=== PATIENT | male | born 1975 | race Caucasian/White ===

== ENCOUNTER 2018-12-21 10:07 | Inpatient (IN) | payer BC ==
[2018-12-21] MEDS ORDERED: LISINOPRIL 10 MG TABLET PO ONE (10:21)
[2018-12-21] MEDS ORDERED: CLONIDINE HCL 0.1 MG TABLET PO ONE (10:21)
--- NOTE | 2018-12-21 10:24 | ER Document Report ---
ED Medical Screen (RME) - General Chief Complaint: Blood Pressure Problem Stated Complaint: BLOOD PRESSURE ISSUES Time Seen by Provider: 12/21/18 10:20 Primary Care Provider: FEDERICO HERNANDEZ MD [Primary Care Provider] - Follow up as needed TRAVEL OUTSIDE OF THE [place] IN LAST 30 DAYS: No - HPI Notes: 12/21/18 10:22 Patient is a 43-year-old male who presents emergency department per the direction of urgent care for elevated blood pressure. Patient states that he otherwise feels well and has been eating and having normal bowel movements. No significant cardiopulmonary medical history. He has not been taking his blood pressure medicines. Patient states that he does feel little anxious today. Denies any headache, fever, neck pain, changes in vision/speech/mentation /hearing, URI, sore throat, chest pain, palpitations, syncope, cough, shortness of breath, wheeze, dyspnea, abdominal pain, nausea/vomiting/diarrhea, urinary retention, dysuria, hematuria, loss of control of bowel or bladder, numbness/tingling, saddle anesthesia, muscle paralysis/weakness, or rash. Reviewed with Dr. Persaud who would like baseline labs performed. Pt tachycardic and tachypneic with high BP. I have treated and performed a rapid initial assessment of this patient. A comprehensive ED assessment and evaluation of the patient, analysis of test results and completion of medical decision making process will be conducted by additional ED providers. PHYSICAL EXAMINATION: GENERAL: Well-appearing, well-nourished and in no acute distress. A&Ox4. Answers questions appropriately. LUNGS: Breath sounds clear to auscultation bilaterally and equal. No wheezes rales or rhonchi. HEART: Regular rate and rhythm without murmurs, rubs, gallops. Extremities: No cyanosis, clubbing, or edema b/l. NEUROLOGICAL: Normal speech, normal gait. PSYCH: Normal mood, normal affect. 12/21/18 10:23 - Related Data Allergies/Adverse Reactions: acetaminophen [From Percocet] Allergy (Mild, Verified 12/21/18 10:08) Urticaria oxycodone HCl [From Percocet] Allergy (Mild, Verified 12/21/18 10:08) Urticaria Past Medical History - Past Medical History Cardiac Medical History: Reports: Hx Hypertension Renal/ Medical History: Denies: Hx Peritoneal Dialysis Physical Exam - Vital signs Vitals: Temp Pulse Resp BP Pulse Ox 98.0 F 132 H 26 H 266/152 H 96 12/21/18 10:10 12/21/18 10:10 12/21/18 10:10 12/21/18 10:10 12/21/18 10:10 Course - Vital Signs Vital signs: Temp Pulse Resp BP Pulse Ox 98.0 F 132 H 26 H 266/152 H 96 12/21/18 10:10 12/21/18 10:10 12/21/18 10:10 12/21/18 10:10 12/21/18 10:10 Doctor's Discharge - Discharge Referrals: FEDERICO HERNANDEZ MD [Primary Care Provider] - Follow up as needed
[2018-12-21 10:47] LABS: ABSOLUTE BASOPHILS # (AUTO) 0.1 10^3/uL (0.0-0.2); ABSOLUTE EOSINOPHILS # (AUTO) 0.1 10^3/uL (0.0-0.6); ABSOLUTE LYMPHOCYTES (AUTO) 1.1 10^3/uL (0.5-4.7); ABSOLUTE MONOCYTES (AUTO) 0.4 10^3/uL (0.1-1.4); BASOPHILS % (AUTO) 1.5 % (0-2); HEMATOCRIT 47.6 % (37.9-51.0); HEMOGLOBIN 16.5 g/dL (13.5-17.0); LYMPHOCYTES % (AUTO) 19.9 % (13-45); MEAN CORPUSCULAR HEMOGLOBIN 36.1 pg (27.0-33.4); MEAN CORPUSCULAR HGB CONC 34.7 g/dL (32.0-36.0); MEAN CORPUSCULAR VOLUME 104 fl (80-97); MONOCYTES % (AUTO) 6.9 % (3-13); PLATELET COUNT 175 10^3/uL (150-450); RED BLOOD COUNT 4.56 10^6/uL (4.35-5.55); RED CELL DISTRIBUTION WIDTH 14.2 % (11.5-14.0); SEGMENTED NEUTROPHILS % (AUTO) 70.7 % (42-78); TOTAL CELLS COUNTED % (AUTO) 100 %; WHITE BLOOD COUNT 5.6 10^3/uL (4.0-10.5)
[2018-12-21 10:59] LABS: INTERNATIONAL RATION (INR) 0.88; PROTHROMBIN TIME 12.4 SEC (11.4-15.4)
[2018-12-21 11:06] LABS: ALANINE AMINOTRANSFERASE 174 U/L (21-72); ALKALINE PHOSPHATASE 135 U/L (38-126); ANION GAP 16 (5-19); ASPARTATE AMINO TRANSFERASE 149 U/L (17-59); BILIRUBIN,DIRECT 0.6 mg/dL (0.0-0.4); BILIRUBIN,TOTAL 1.2 mg/dL (0.2-1.3); BLOOD UREA NITROGEN 9 mg/dL (7-20); CALCIUM 9.9 mg/dL (8.4-10.2); CARBON DIOXIDE 21 mmol/L (22-30); CHLORIDE 94 mmol/L (98-107); SODIUM 130.9 mmol/L (137-145); TOTAL PROTEIN 8.4 g/dL (6.3-8.2)
[2018-12-21 11:08] LABS: GLUCOSE 192 mg/dL (75-110)
--- NOTE | 2018-12-21 11:12 | RADIOLOGY REPORT (SQ) ---
EXAM DESCRIPTION: CHEST SINGLE VIEW COMPLETED DATE/TIME: 12/21/2018 10:45 am REASON FOR STUDY: Tachycardic, HTN COMPARISON: 10/21/2015 EXAM PARAMETERS: NUMBER OF VIEWS: One view. TECHNIQUE: Single frontal radiographic view of the chest acquired. RADIATION DOSE: NA LIMITATIONS: None. FINDINGS: LUNGS AND PLEURA: No opacities, masses or pneumothorax. No pleural effusion. MEDIASTINUM AND HILAR STRUCTURES: No masses. Contour normal. HEART AND VASCULAR STRUCTURES: Heart normal in size. Normal vasculature. BONES: No acute findings. HARDWARE: None in the chest. OTHER: No other significant finding. IMPRESSION: NO ACUTE RADIOGRAPHIC FINDING IN THE CHEST. TECHNICAL DOCUMENTATION: JOB ID: [id number] [employer]- All Rights Reserved Reading location - IP/workstation name: [email or web address]
[2018-12-21] MEDS ORDERED: LABETALOL HCL INJ 20 MG/4 ML DISP.SYRIN IV ONE (11:18)
[2018-12-21] MEDS ORDERED: LORAZEPAM 0.5 MG TABLET PO ONE (11:26)
[2018-12-21] MEDS ORDERED: METOPROLOL TARTRATE PF/INJ 5 MG/5 ML SDV IV ONE (11:26)
[2018-12-21] MEDS ORDERED: THIAMINE HCL 100 MG, FOLIC ACID 1 MG in NORMAL SALINE 250 ML IV ONE (11:26)
[2018-12-21] MEDS ORDERED: LORAZEPAM 1 MG TABLET PO ONE (11:28)
--- NOTE | 2018-12-21 11:33 | ER Document Report ---
ED Blood Pressure Problem - General Chief Complaint: Blood Pressure Problem Stated Complaint: BLOOD PRESSURE ISSUES Time Seen by Provider: 12/21/18 10:20 Primary Care Provider: FEDERICO HERNANDEZ MD [NO LOCAL MD] - Follow up as needed TRAVEL OUTSIDE OF THE [place] IN LAST 30 DAYS: No - HPI Notes: Patient is a 43-year-old male that presents to the emergency department for chief complaint of left index finger wound and hypertension. Patient states a few weeks ago he slammed his index finger in a car door. He went to an urgent care facility today for recheck of his wound and was told that he was hypertensive and referred to the emergency room. Patient does have a history of hypertension and has been noncompliant with lisinopril for the last month and a half. He states he did not have any refills and has not followed back up with his PCP. He states after his initial injury he did have an x-ray which was negative for fracture but he was concerned that the scab had not improved. He denies any pain in his left index finger. He has not taken any medications at home including decongestants. He denies any drug use. Patient does endorse daily alcohol and states he drinks 2/5 of liquor a week. His last alcoholic beverage was around 7 PM last night. He denies history of alcohol withdrawal or seizures. He states occasionally he does get tremulous when he does not drink alcohol. Past Medical History: Hypertension Past Surgical History: Negative Social History: Daily tobacco, denies drug use, daily alcohol Family History: Reviewed and noncontributory for presenting illness Allergies: Reviewed, see documented allergy list. REVIEW OF SYSTEMS: CONSTITUTIONAL : No fever No chills No diaphoresis No recent illness EENT: No vision changes No congestion No sore throat CARDIOVASCULAR: No chest pain No palpitations RESPIRATORY: No shortness of breath No cough No difficulty breathing GASTROINTESTINAL: No abdominal pain No nausea No vomiting No diarrhea GENITOURINARY: No dysuria No hematuria No difficulty urinating MUSCULOSKELETAL: No back pain No leg pain Left finger pain SKIN: No rashes No lesions LYMPHATIC: No swollen, enlarged glands. NEUROLOGICAL: No lightheadedness No headache No weakness No paresthesias PSYCHIATRIC: No anxiety No depression PHYSICAL EXAMINATION: Vital signs reviewed, nursing noted reviewed. GENERAL: Mildly diaphoretic, well-nourished and in no acute distress. HEAD: Atraumatic, normocephalic. EYES: Eyes appear normal, extraocular movements intact, sclera anicteric, conjunctiva are normal. ENT: nares patent, oropharynx clear without exudates. Moist mucous membranes. NECK: Normal range of motion, supple without lymphadenopathy LUNGS: Breath sounds clear to auscultation bilaterally and equal. No wheezes rales or rhonchi. HEART: Tachycardic rate and regular rhythm without murmurs ABDOMEN: Protuberant, soft, nontender, normoactive bowel sounds. No rebound, guarding, or rigidity. No masses appreciated. EXTREMITIES: Distal left third digit scab with no active bleeding or tenderness, good range of motion, no pitting or edema. NEUROLOGICAL: Left hand tremor, no focal neurological deficits. Moves all extremities spontaneously Motor and sensory grossly intact on exam. PSYCH: Normal mood, normal affect. SKIN: Warm, Dry, normal turgor, no rashes or lesions noted on exposed skin - Related Data Allergies/Adverse Reactions: acetaminophen [From Percocet] Allergy (Mild, Verified 12/21/18 10:08) Urticaria oxycodone HCl [From Percocet] Allergy (Mild, Verified 12/21/18 10:08) Urticaria Past Medical History - Social History Smoking Status: Current Every Day Smoker Family History: Reviewed & Not Pertinent Patient has suicidal ideation: No Patient has homicidal ideation: No - Past Medical History Cardiac Medical History: Reports: Hx Hypertension Renal/ Medical History: Denies: Hx Peritoneal Dialysis Physical Exam - Vital signs Vitals: Temp Pulse Resp BP Pulse Ox 98.0 F 132 H 26 H 266/152 H 96 12/21/18 10:10 12/21/18 10:10 12/21/18 10:10 12/21/18 10:10 12/21/18 10:10 Course - Re-evaluation Re-evalutation: 12/21/18 11:31 Vitals reviewed. Nursing notes reviewed. Patient is tachycardic and hypertensive. He appears mildly diaphoretic and has a tremor. His symptoms may be related to acute alcohol withdrawal. He does state he would like to wean off of alcohol but does not know how. He was given Ativan for alcohol withdrawal. Patient received clonidine and lisinopril in triage for his hypertension with minimal improvement. He was ordered a dose of metoprolol IV for further blood pressure management. He is otherwise asymptomatic and has no focal neurologic deficits. His blood work shows elevated LFTs consistent with his alcoholism. He has no vomiting or abdominal pain to require further imaging of his abdomen. Patient has normal renal function. He is hyponatremic and was given 1 L of saline. 12/21/18 12:18 After IV metoprolol patient systolic has improved but diastolic pressure has not been unchanged. His troponin is now resulted in normal. On reevaluation after Ativan patient is no longer tachycardic or tremulous. He will be admitted to the hospital for acute alcohol withdrawal and uncontrolled hypertension. Case discussed with Dr. Marie Laboratory 12/21/18 12/21/18 12/21/18 10:35 10:35 10:35 WBC 5.6 RBC 4.56 Hgb 16.5 Hct 47.6 MCV 104 H MCH 36.1 H MCHC 34.7 RDW 14.2 H Plt Count 175 Seg Neutrophils % 70.7 Lymphocytes % 19.9 Monocytes % 6.9 Eosinophils % 1.0 Basophils % 1.5 Absolute Neutrophils 4.0 Absolute Lymphocytes 1.1 Absolute Monocytes 0.4 Absolute Eosinophils 0.1 Absolute Basophils 0.1 PT 12.4 INR 0.88 Sodium 130.9 L Potassium 4.0 Chloride 94 L Carbon Dioxide 21 L Anion Gap 16 BUN 9 Creatinine 0.87 Est GFR ( Amer) > 60 Est GFR (Non-Af Amer) > 60 Glucose 192 H Calcium 9.9 Total Bilirubin 1.2 Direct Bilirubin 0.6 H Neonat Total Bilirubin Not Reportable Neonat Direct Bilirubin Not Reportable Neonat Indirect Bili Not Reportable AST 149 H ALT 174 H Alkaline Phosphatase 135 H Troponin I Total Protein 8.4 H Albumin 5.0 Urine Color Urine Appearance Urine pH Ur Specific [place] Urine Protein Urine Glucose (UA) Urine Ketones Urine Blood Urine Nitrite Urine Bilirubin Urine Urobilinogen Ur Leukocyte Esterase Urine WBC (Auto) Urine RBC (Auto) Urine Mucus (Auto) Urine Ascorbic Acid Urine Opiates Screen Urine Methadone Screen Ur Barbiturates Screen Ur Phencyclidine Scrn Ur Amphetamines Screen U Benzodiazepines Scrn Urine Cocaine Screen U Marijuana (THC) Screen Serum Alcohol 12/21/18 12/21/18 12/21/18 10:35 10:35 11:36 WBC RBC Hgb Hct MCV MCH MCHC RDW Plt Count Seg Neutrophils % Lymphocytes % Monocytes % Eosinophils % Basophils % Absolute Neutrophils Absolute Lymphocytes Absolute Monocytes Absolute Eosinophils Absolute Basophils PT INR Sodium Potassium Chloride Carbon Dioxide Anion Gap BUN Creatinine Est GFR ( Amer) Est GFR (Non-Af Amer) Glucose Calcium Total Bilirubin Direct Bilirubin Neonat Total Bilirubin Neonat Direct Bilirubin Neonat Indirect Bili AST ALT Alkaline Phosphatase Troponin I < 0.012 Total Protein Albumin Urine Color STRAW Urine Appearance CLEAR Urine pH 7.0 Ur Specific [place] 1.004 Urine Protein 30 H Urine Glucose (UA) 50 H Urine Ketones TRACE H Urine Blood NEGATIVE Urine Nitrite NEGATIVE Urine Bilirubin NEGATIVE Urine Urobilinogen NEGATIVE Ur Leukocyte Esterase NEGATIVE Urine WBC (Auto) 1 Urine RBC (Auto) 0 Urine Mucus (Auto) RARE Urine Ascorbic Acid NEGATIVE Urine Opiates Screen Urine Methadone Screen Ur Barbiturates Screen Ur Phencyclidine Scrn Ur Amphetamines Screen U Benzodiazepines Scrn Urine Cocaine Screen U Marijuana (THC) Screen Serum Alcohol 59 12/21/18 11:36 WBC RBC Hgb Hct MCV MCH MCHC RDW Plt Count Seg Neutrophils % Lymphocytes % Monocytes % Eosinophils % Basophils % Absolute Neutrophils Absolute Lymphocytes Absolute Monocytes Absolute Eosinophils Absolute Basophils PT INR Sodium Potassium Chloride Carbon Dioxide Anion Gap BUN Creatinine Est GFR ( Amer) Est GFR (Non-Af Amer) Glucose Calcium Total Bilirubin Direct Bilirubin Neonat Total Bilirubin Neonat Direct Bilirubin Neonat Indirect Bili AST ALT Alkaline Phosphatase Troponin I Total Protein Albumin Urine Color Urine Appearance Urine pH Ur Specific [place] Urine Protein Urine Glucose (UA) Urine Ketones Urine Blood Urine Nitrite Urine Bilirubin Urine Urobilinogen Ur Leukocyte Esterase Urine WBC (Auto) Urine RBC (Auto) Urine Mucus (Auto) Urine Ascorbic Acid Urine Opiates Screen NEGATIVE Urine Methadone Screen NEGATIVE Ur Barbiturates Screen NEGATIVE Ur Phencyclidine Scrn NEGATIVE Ur Amphetamines Screen NEGATIVE U Benzodiazepines Scrn NEGATIVE Urine Cocaine Screen NEGATIVE U Marijuana (THC) Screen NEGATIVE Serum Alcohol Chest X-Ray 12/21/18 10:21 IMPRESSION: NO ACUTE RADIOGRAPHIC FINDING IN THE CHEST. who accepted admission - Vital Signs Vital signs: Temp Pulse Resp BP Pulse Ox 98.0 F 118 H 15 211/135 H 93 12/21/18 10:10 12/21/18 10:42 12/21/18 11:32 12/21/18 11:32 12/21/18 11:01 - Laboratory Result Diagrams: 12/21/18 10:35 12/21/18 10:35 Laboratory results interpreted by me: 04/12/0612/21/18 12/21/18 10:35 10:35 11:36 MCV 104 H MCH 36.1 H RDW 14.2 H Sodium 130.9 L Chloride 94 L Carbon Dioxide 21 L Glucose 192 H Direct Bilirubin 0.6 H AST 149 H ALT 174 H Alkaline Phosphatase 135 H Total Protein 8.4 H Urine Protein 30 H Urine Glucose (UA) 50 H Urine Ketones TRACE H Critical Care Note - Critical Care Note Total time excluding time spent on procedures (mins): 45 Comments: Critical care time 45 exclusive from separate billable procedures for a patient requiring complex medical decision making, and high potential for clinical deterioration. Time spent obtaining history from patient or surrogate, discussions with consultants, development of treatment plan with patient or surrogate, evaluation of patient's response to treatment, examination of patient, ordering and performing treatments and interventions, ordering and review of laboratory studies, re-evaluation of patient's condition, ordering and review of radiographic studies and review of old charts Discharge - Discharge Clinical Impression: Hyponatremia, Transaminitis, Hypertensive emergency Alcohol withdrawal Qualifiers: Complication of substance-induced condition: uncomplicated Qualified Code(s): F10.230 - Alcohol dependence with withdrawal, uncomplicated Condition: Stable Disposition: ADMITTED INPATIENT Admitting Provider: Hospitalist Unit Admitted: ICU Referrals: FEDERICO HERNANDEZ MD [NO LOCAL MD] - Follow up as needed
--- NOTE | 2018-12-21 11:45 | EKG REPORT ---
SEVERITY:- ABNORMAL ECG - SINUS TACHYCARDIA PROBABLE INFERIOR INFARCT, OLD : Confirmed by: Alvaro Zamora MD 21-Dec-2018 11:44:25
[2018-12-21 11:53] LABS: APPEARANCE,URINE CLEAR; BILIRUBIN,URINE NEGATIVE (NEGATIVE); COLOR,URINE STRAW; GLUCOSE, URINE 50 mg/dL (NEGATIVE); KETONES,URINE TRACE mg/dL (NEGATIVE); LEUKOCYTE ESTERASE,URINE NEGATIVE (NEGATIVE); NITRITE,URINE NEGATIVE (NEGATIVE); PROTEIN,URINE 30 mg/dL (NEGATIVE); URINE SPECIFIC GRAVITY 1.004; UROBILINOGEN,URINE NEGATIVE mg/dL (<2.0)
[2018-12-21 12:08] LABS: URINE AMPHETAMINES SCREEN NEGATIVE; URINE BARBITURATES SCREEN NEGATIVE; URINE BENZODIAZEPINES SCREEN NEGATIVE; URINE COCAINE SCREEN NEGATIVE; URINE MARIJUANA (THC) SCREEN NEGATIVE; URINE METHADONE SCREEN NEGATIVE; URINE PHENCYCLIDINE SCREEN NEGATIVE
[2018-12-21] MEDS ORDERED: NORMAL SALINE 1000 ML 1,000 ML IV ONE (12:15)
[2018-12-21] MEDS ORDERED: IPRATROPIUM/ALBUTEROL 0.5-2.5 MG/3 ML AMPUL NEB PRN (13:49)
[2018-12-21] MEDS ORDERED: LORAZEPAM INJ 2 MG/1 ML VIAL IV PRN (13:49)
[2018-12-21] MEDS ORDERED: ONDANSETRON HCL INJ/PF 4 MG/2 ML SDV IV PRN (13:49)
[2018-12-21] MEDS ORDERED: ACETAMINOPHEN 325 MG TABLET PO PRN (13:49)
--- NOTE | 2018-12-21 15:10 | PDOC H&P ---
History of Present Illness Admission Date/PCP: 12/21/18 12:45 Patient complains of: elevated blood pressure History of Present Illness: IBRAHIMA UGARTE is a 43 year old male with a past medical history of hypertension and obesity, who presented to the ED sent from urgent care secondary to elevated blood pressure. Patient states that he cut his finger over the left hand a few weeks ago and went back to the urgent care to have it looked at. While he was at the urgent care he was found to have a systolic blood pressure greater than 220 and was told to go to the ER immediately. Patient tells me that this has happened to him in the past when he was in the ED for elevated blood pressure but he was never admitted. Patient also tells me that he was started on medication for hypertension but is not compliant with that and has not been taking it. He denies any symptoms of chest pain, shortness of breath, abdominal pain, nausea or vomiting, dizziness, blurry vision or headaches. He does admit to smoking 1 pack of cigarette per day. He also admits to [place] alcohol daily-his choice alcohol is vodka- 2/5th liquor in a week. States that he also drinks beer on the weekends. He denies use of any illicit drugs. He denies any family history of cancer or ND before the age of 50. Past Medical History Cardiac Medical History: Reports: Hypertension Social History Smoking Status: Current Every Day Smoker - Advance Directive Resuscitation Status: Full Code Family History Family History: Reviewed & Not Pertinent Parental Family History Reviewed: Yes Children Family History Reviewed: Yes Sibling(s) Family History Reviewed.: Yes Medication/Allergy Home Medications: No Home Medications 12/21/18 Allergies/Adverse Reactions: acetaminophen [From Percocet] Allergy (Mild, Verified 12/21/18 10:08) Urticaria oxycodone HCl [From Percocet] Allergy (Mild, Verified 12/21/18 10:08) Urticaria Review of Systems All systems: reviewed and no additional remarkable complaints except as stated Constitutional: ABSENT: chills, fever(s) Eyes: ABSENT: visual disturbances Ears: ABSENT: hearing changes Nose, Mouth, and Throat: ABSENT: sore throat Cardiovascular: PRESENT: palpitations. ABSENT: chest pain, dyspnea on exertion, edema Gastrointestinal: ABSENT: nausea, vomiting Genitourinary: ABSENT: dysuria Integumentary: ABSENT: rash Neurological: ABSENT: abnormal speech, focal weakness, frequent falls, lack of coordination, syncope, tingling, vertigo, weakness Endocrine: ABSENT: polyuria Hematologic/Lymphatic: ABSENT: easy bleeding, easy bruising Physical Exam Vital Signs: Temp Pulse Resp BP Pulse Ox 98.0 F 118 H 19 171/110 H 94 12/21/18 10:10 12/21/18 10:42 12/21/18 13:01 12/21/18 13:01 12/21/18 13:01 Intake & Output 12/20/18 12/21/18 12/22/18 06:59 06:59 06:59 Intake Total 251.2 Balance 251.2 Weight 252 lb 3.341 oz General appearance: PRESENT: no acute distress Head exam: PRESENT: atraumatic, normocephalic Eye exam: PRESENT: EOMI, PERRLA. ABSENT: conjunctival injection, scleral icterus Ear exam: PRESENT: normal external ear exam Mouth exam: PRESENT: moist, tongue midline Neck exam: ABSENT: tracheal deviation Respiratory exam: PRESENT: decreased breath sounds - slightly decreased breath sounds bilaterally- with infrequent expiratory wheezing, symmetrical Cardiovascular exam: PRESENT: +S1, +S2, tachycardia Pulses: PRESENT: normal dorsalis pedis pul GI/Abdominal exam: PRESENT: normal bowel sounds, soft, other - obese abdomen. ABSENT: tenderness Extremities exam: PRESENT: other - Left index finger wound noted-does not look i nfected-eschar noted on the tip of the finger.. ABSENT: joint swelling, pedal edema Musculoskeletal exam: PRESENT: normal inspection. ABSENT: tenderness Neurological exam: PRESENT: alert, awake, oriented to person, oriented to place, oriented to time, oriented to situation, CN II-XII grossly intact Skin exam: PRESENT: dry, warm Results Laboratory Results: 12/21/18 10:35 12/21/18 10:35 12/21/18 12/21/18 12/21/18 10:35 10:35 11:36 WBC 5.6 RBC 4.56 Hgb 16.5 Hct 47.6 MCV 104 H MCH 36.1 H MCHC 34.7 RDW 14.2 H Plt Count 175 Seg Neutrophils % 70.7 Lymphocytes % 19.9 Monocytes % 6.9 Eosinophils % 1.0 Basophils % 1.5 Absolute Neutrophils 4.0 Absolute Lymphocytes 1.1 Absolute Monocytes 0.4 Absolute Eosinophils 0.1 Absolute Basophils 0.1 Sodium 130.9 L Potassium 4.0 Chloride 94 L Carbon Dioxide 21 L Anion Gap 16 BUN 9 Creatinine 0.87 Est GFR ( Amer) > 60 Est GFR (Non-Af Amer) > 60 Glucose 192 H Calcium 9.9 Total Bilirubin 1.2 AST 149 H ALT 174 H Alkaline Phosphatase 135 H Total Protein 8.4 H Albumin 5.0 Urine Color STRAW Urine Appearance CLEAR Urine pH 7.0 Ur Specific [place] 1.004 Urine Protein 30 H Urine Glucose (UA) 50 H Urine Ketones TRACE H Urine Blood NEGATIVE Urine Nitrite NEGATIVE Ur Leukocyte Esterase NEGATIVE Urine WBC (Auto) 1 Urine RBC (Auto) 0 12/21/18 10:35 Troponin I < 0.012 Impressions: Chest X-Ray 12/21/18 10:21 IMPRESSION: NO ACUTE RADIOGRAPHIC FINDING IN THE CHEST. Assessment and Plan - Diagnosis (1) Hypertensive emergency Is this a current diagnosis for this admission?: Yes Plan: History of hypertension but noncompliant at home as he has not been taking his lisinopril 10 mg daily. He does not have a primary care doctor and only goes to the urgent care for medical issues. In the ED after arrival he received 10 mg lisinopril, Ativan 1 mg, 0.5 mg, clonidine 0.1 mg, labetalol 10 mg IV and metoprolol 5 mg IV and his blood pressure was still elevated. He was noted to be diaphoretic and having tremors and there was concern for alcohol withdrawal since his alcohol level came elevated. Last drink was 7 PM last night. At this time there is concern for withdrawal seizures-we will place him in ICU overnight to keep close observation and start him on a Precedex drip to control his blood pressure better. We will check lipid panel, A1c, TSH, INR/PT, and ammonia level. (2) Alcohol withdrawal Qualifiers: Complication of substance-induced condition: uncomplicated Qualified Code(s): F10.230 - Alcohol dependence with withdrawal, uncomplicated Is this a current diagnosis for this admission?: Yes Plan: History of alcohol abuse-states he drinks vodka at home daily. Alcohol level e levated at this time. There is concern for alcohol withdrawal since he was a little tremulous and diaphoretic in the ED. we will place him on seizure precautions. Ativan as needed for agitation and seizures. Discussed about alcohol cessation. Will check folate and B12 levels. Start him on folate, thiamine and multivitamins. (3) Hyponatremia Is this a current diagnosis for this admission?: Yes Plan: Unclear but likely secondary to alcohol abuse. He does not seem to be volume overloaded. We will monitor him for now. Consulted on alcohol cessation. (4) Hypertension Qualifiers: Hypertension type: other secondary hypertension Qualified Code(s): I15.8 - Other secondary hypertension Is this a current diagnosis for this admission?: Yes Plan: Noncompliant-is supposed to be on lisinopril but has not been taking it. See plan above for hypertensive emergency. (5) Transaminitis Is this a current diagnosis for this admission?: Yes Plan: Noted on CMP-elevated LFTs most likely secondary to alcohol abuse. Will get right upper quadrant ultrasound to reevaluate further. Discussed about alcohol cessation. (6) Alcohol abuse Is this a current diagnosis for this admission?: Yes Plan: Advised on cessation. States he will think about it. See plan above for alcohol withdrawal. (7) Tobacco abuse Is this a current diagnosis for this admission?: Yes Plan: Counseled on cessation. Offered him pain patch but he declines at this time. Currently smokes 1 pack/day. - Time Total Critical Time (Minutes): 34 Smoking Cessation Education: 3 to 10 minutes Anticipated discharge: Home Within: within 72 hours - Inpatient Certification Based on my medical assessment, after consideration of the patient's comorbidities, presenting symptoms, or acuity I expect that the services needed warrant INPATIENT care.: Yes I certify that my determination is in accordance with my understanding of Medicare's requirements for reasonable and necessary INPATIENT services [42 CFR 412.3e].: Yes Medical Necessity: Failure to Improve With Outpatient Therapy, Need For Continuous Telemetry Monitoring, Need for Neurological Checks - Plan Summary Plan Summary: Admit to ICU for close observation and better control of his blood pressure
[2018-12-21 15:16] LABS: INTERNATIONAL RATION (INR) 0.87; PROTHROMBIN TIME 12.3 SEC (11.4-15.4)
[2018-12-21] MEDS: DEXMEDETOMIDINE IN 0.9 % NACL 400 MCG/100 ML RTUPB IV PRN ×2 (16:31→23:50)
[2018-12-21] MEDS: FAMOTIDINE 20 MG TABLET PO SCH ×2 (16:34→18:40)
[2018-12-21] MEDS: HYDRALAZINE HCL INJ/PF 20 MG/1 ML SDV IV PRN (16:40)
[2018-12-21] MEDS: ENOXAPARIN SODIUM INJ 40 MG/0.4 ML DISP.SYRIN SUBCUT SCH (16:44)
--- NOTE | 2018-12-21 18:13 | RADIOLOGY REPORT (SQ) ---
EXAM DESCRIPTION: U/S ABDOMEN LIMITED W/O DOP COMPLETED DATE/TIME: 12/21/2018 5:53 pm REASON FOR STUDY: elevated LFTs COMPARISON: None. TECHNIQUE: Dynamic and static grayscale images acquired of the abdomen and recorded on PACS. Additio nal selected color Doppler and spectral images recorded. Note: Exam does not meet criteria for a complete doppler/duplex scan LIMITATIONS: Study limited due to acoustical interference from fat or from air in the bowel. FINDINGS: PANCREAS: Poorly seen secondary to acoustical interference from fat or from air in the bow el. No visualized masses. Duct normal caliber as seen. LIVER: Echotexture is coarse with increased echogenicity consistent with fatty infiltration. LIVER VASCULATURE: Normal directional flow of the main portal vein and hepatic veins. GALLBLADDER: No stones. Normal wall thickness. No pericholecystic fluid. ULTRASOUND-DETECTED GLEASON'S SIGN: Negative. INTRAHEPATIC DUCTS AND COMMON DUCT: CBD and intrahepatic ducts normal caliber. No filling defects. INFERIOR VENA CAVA: Normal flow. AORTA: Obscured by bowel gas. RIGHT KIDNEY: Normal size. Normal echogenicity. No solid or suspicious masses. No hydronephrosis. No calcifications. PERITONEAL AND PLEURAL SPACES: No ascites or effusions. OTHER: No other significant finding. IMPRESSION: FATTY INFILTRATION OF THE LIVER. NO OTHER SIGNIFICANT FINDING IN THE VISUALIZED ABDOMEN. TECHNICAL DOCUMENTATION: JOB ID: [id number] [employer]- All Rights Reserved Reading location - IP/workstation name: [email or web address]
[2018-12-22 04:08] LABS: ABSOLUTE BASOPHILS # (AUTO) 0.1 10^3/uL (0.0-0.2); ABSOLUTE EOSINOPHILS # (AUTO) 0.1 10^3/uL (0.0-0.6); ABSOLUTE LYMPHOCYTES (AUTO) 0.8 10^3/uL (0.5-4.7); ABSOLUTE MONOCYTES (AUTO) 0.3 10^3/uL (0.1-1.4); ABSOLUTE NEUT (AUTO) 3.3 10^3/uL (1.7-8.2); BASOPHILS % (AUTO) 1.4 % (0-2); EOSINOPHILS % (AUTO) 1.3 % (0-6); HEMATOCRIT 43.4 % (37.9-51.0); HEMOGLOBIN 15.2 g/dL (13.5-17.0); LYMPHOCYTES % (AUTO) 18.2 % (13-45); MEAN CORPUSCULAR HEMOGLOBIN 36.3 pg (27.0-33.4); MEAN CORPUSCULAR VOLUME 104 fl (80-97); MONOCYTES % (AUTO) 7.1 % (3-13); PLATELET COUNT 135 10^3/uL (150-450); RED BLOOD COUNT 4.17 10^6/uL (4.35-5.55); RED CELL DISTRIBUTION WIDTH 14.3 % (11.5-14.0); TOTAL CELLS COUNTED % (AUTO) 100 %; WHITE BLOOD COUNT 4.5 10^3/uL (4.0-10.5)
[2018-12-22 04:31] LABS: ALANINE AMINOTRANSFERASE 139 U/L (21-72); ALBUMIN 4.2 g/dL (3.5-5.0); ALKALINE PHOSPHATASE 91 U/L (38-126); ANION GAP 9 (5-19); ASPARTATE AMINO TRANSFERASE 125 U/L (17-59); BILIRUBIN,DIRECT 0.4 mg/dL (0.0-0.4); BILIRUBIN,TOTAL 1.2 mg/dL (0.2-1.3); BLOOD UREA NITROGEN 13 mg/dL (7-20); CALCIUM 9.6 mg/dL (8.4-10.2); CARBON DIOXIDE 24 mmol/L (22-30); CHLORIDE 101 mmol/L (98-107); GLUCOSE 137 mg/dL (75-110); POTASSIUM 3.7 mmol/L (3.6-5.0); SODIUM 134.1 mmol/L (137-145); TRIGLYCERIDES 214 mg/dL (<150)
[2018-12-22 04:42] LABS: CHOLESTEROL 345.87 mg/dL (0-200); DIRECT LDL 177 mg/dL (<100); VLDL CHOLESTEROL 42.8 mg/dL (10-31)
[2018-12-22] MEDS: FAMOTIDINE 20 MG TABLET PO SCH ×2 (05:04→17:29)
[2018-12-22 05:40] LABS: FOLATE 7.46 ng/mL (>2.76)
[2018-12-22] MEDS: DEXMEDETOMIDINE IN 0.9 % NACL 400 MCG/100 ML RTUPB IV PRN (06:39)
--- NOTE | 2018-12-22 07:54 | EKG REPORT ---
SEVERITY:- ABNORMAL ECG - SINUS RHYTHM NONSPECIFIC LATERAL T WAVE CHANGES PROLONGED QT INTERVAL : Confirmed by: Alvaro Zamora MD 22-Dec-2018 07:53:39
[2018-12-22] MEDS: LISINOPRIL 10 MG TABLET PO SCH (09:07)
[2018-12-22] MEDS: ENOXAPARIN SODIUM INJ 40 MG/0.4 ML DISP.SYRIN SUBCUT SCH (09:09)
[2018-12-22] MEDS ORDERED: THIAMINE HCL 100 MG TABLET PO SCH (10:00)
[2018-12-22] MEDS ORDERED: NICOTINE 21 MG/24 HR PATCH.TD24 TD SCH (10:00)
[2018-12-22] MEDS ORDERED: FOLIC ACID 1 MG TABLET PO SCH (10:00)
[2018-12-22] MEDS ORDERED: MULTIVITAMIN TABLET PO SCH (10:00)
--- NOTE | 2018-12-22 11:05 | PDOC PROGRESS REPORT ---
Subjective Progress Note for:: 12/22/18 Subjective:: 43 year old male with a past medical history of hypertension and obesity, who presented to the ED sent from urgent care secondary to elevated blood pressure. Patient states that he cut his finger over the left hand a few weeks ago and went back to the urgent care to have it looked at. While he was at the urgent care he was found to have a systolic blood pressure greater than 220 and was told to go to the ER immediately. Patient tells me that this has happened to him in the past when he was in the ED for elevated blood pressure but he was never admitted. Patient also tells me that he was started on medication for hypertension but is not compliant with that and has not been taking it. He denies any symptoms of chest pain, shortness of breath, abdominal pain, nausea or vomiting, dizziness, blurry vision or headaches. He does admit to smoking 1 pack of cigarette per day. He also admits to drinking alcohol daily-his choice alcohol is vodka- 2/5th liquor in a week. States that he also drinks beer on the weekends. He denies use of any illicit drugs. He denies any family history of cancer or [place] before the age of 50. 12/[id number]-iodp-old male with history of hypertension obesity came to the emergency room with high blood pressure. He went to the urgent care and found to have systolic blood pressure of more than 220 he was advised to come to the emergency room for further evaluation. He also admitted to drink heavily on daily basis. On examination alert and awake communicating well. Reason For Visit: UNCONTROLLED HTN,ALCOHOL WITHDRAWAL Physical Exam Vital Signs: Temp Pulse Resp BP Pulse Ox 97.2 F 79 23 H 129/95 H 95 12/22/18 08:00 12/22/18 10:00 12/22/18 10:36 12/22/18 10:36 12/22/18 10:36 Intake & Output 12/21/18 12/22/18 12/23/18 06:59 06:59 06:59 Intake Total 1628.2 Output Total 8000 Balance -6371.8 Weight 110.8 kg General appearance: PRESENT: no acute distress, obese Eye exam: PRESENT: PERRLA Mouth exam: PRESENT: dry mucosa Neck exam: ABSENT: carotid bruit, JVD, lymphadenopathy, thyromegaly Cardiovascular exam: PRESENT: tachycardia GI/Abdominal exam: PRESENT: normal bowel sounds, soft. ABSENT: distended, guarding, mass, organolmegaly, rebound, tenderness Extremities exam: PRESENT: full ROM. ABSENT: calf tenderness, clubbing, pedal edema Neurological exam: PRESENT: alert, awake, oriented to person, oriented to place, oriented to time, oriented to situation, CN II-XII grossly intact. ABSENT: motor sensory deficit Psychiatric exam: PRESENT: appropriate affect, normal mood. ABSENT: homicidal ideation, suicidal ideation Results Laboratory Results: 12/22/18 03:59 12/22/18 03:59 12/21/18 12/21/18 12/21/18 10:35 10:35 11:36 WBC 5.6 RBC 4.56 Hgb 16.5 Hct 47.6 MCV 104 H MCH 36.1 H MCHC 34.7 RDW 14.2 H Plt Count 175 Seg Neutrophils % 70.7 Lymphocytes % 19.9 Monocytes % 6.9 Eosinophils % 1.0 Basophils % 1.5 Absolute Neutrophils 4.0 Absolute Lymphocytes 1.1 Absolute Monocytes 0.4 Absolute Eosinophils 0.1 Absolute Basophils 0.1 Sodium 130.9 L Potassium 4.0 Chloride 94 L Carbon Dioxide 21 L Anion Gap 16 BUN 9 Creatinine 0.87 Est GFR ( Amer) > 60 Est GFR (Non-Af Amer) > 60 Glucose 192 H Calcium 9.9 Total Bilirubin 1.2 AST 149 H ALT 174 H Alkaline Phosphatase 135 H Ammonia Total Protein 8.4 H Albumin 5.0 Triglycerides Cholesterol LDL Cholesterol Direct VLDL Cholesterol HDL Cholesterol Vitamin B12 Folate TSH Urine Color STRAW Urine Appearance CLEAR Urine pH 7.0 Ur Specific [place] 1.004 Urine Protein 30 H Urine Glucose (UA) 50 H Urine Ketones TRACE H Urine Blood NEGATIVE Urine Nitrite NEGATIVE Ur Leukocyte Esterase NEGATIVE Urine WBC (Auto) 1 Urine RBC (Auto) 0 12/21/18 12/22/18 12/22/18 14:55 03:59 03:59 WBC 4.5 RBC 4.17 L Hgb 15.2 Hct 43.4 MCV 104 H MCH 36.3 H MCHC 35.0 RDW 14.3 H Plt Count 135 L Seg Neutrophils % 72.0 Lymphocytes % 18.2 Monocytes % 7.1 Eosinophils % 1.3 Basophils % 1.4 Absolute Neutrophils 3.3 Absolute Lymphocytes 0.8 Absolute Monocytes 0.3 Absolute Eosinophils 0.1 Absolute Basophils 0.1 Sodium 134.1 L Potassium 3.7 Chloride 101 Carbon Dioxide 24 Anion Gap 9 BUN 13 Creatinine 0.84 Est GFR ( Amer) > 60 Est GFR (Non-Af Amer) > 60 Glucose 137 H Calcium 9.6 Total Bilirubin 1.2 AST 125 H ALT 139 H Alkaline Phosphatase 91 Ammonia < 8.7 L Total Protein 7.0 Albumin 4.2 Triglycerides 214 H Cholesterol 345.87 H LDL Cholesterol Direct 177 H VLDL Cholesterol 42.8 H HDL Cholesterol 126 Vitamin B12 255.0 Folate 7.46 TSH Urine Color Urine Appearance Urine pH Ur Specific [place] Urine Protein Urine Glucose (UA) Urine Ketones Urine Blood Urine Nitrite Ur Leukocyte Esterase Urine WBC (Auto) Urine RBC (Auto) 12/22/18 03:59 WBC RBC Hgb Hct MCV MCH MCHC RDW Plt Count Seg Neutrophils % Lymphocytes % Monocytes % Eosinophils % Basophils % Absolute Neutrophils Absolute Lymphocytes Absolute Monocytes Absolute Eosinophils Absolute Basophils Sodium Potassium Chloride Carbon Dioxide Anion Gap BUN Creatinine Est GFR ( Amer) Est GFR (Non-Af Amer) Glucose Calcium Total Bilirubin AST ALT Alkaline Phosphatase Ammonia Total Protein Albumin Triglycerides Cholesterol LDL Cholesterol Direct VLDL Cholesterol HDL Cholesterol Vitamin B12 Folate TSH 3.02 Urine Color Urine Appearance Urine pH Ur Specific [place] Urine Protein Urine Glucose (UA) Urine Ketones Urine Blood Urine Nitrite Ur Leukocyte Esterase Urine WBC (Auto) Urine RBC (Auto) 12/21/18 12/21/18 12/21/18 10:35 14:55 20:50 Troponin I < 0.012 < 0.012 0.015 Impressions: Abdomen Ultrasound 12/21/18 00:00 IMPRESSION: FATTY INFILTRATION OF THE LIVER. NO OTHER SIGNIFICANT FINDING IN THE VISUALIZED ABDOMEN. Chest X-Ray 12/21/18 10:21 IMPRESSION: NO ACUTE RADIOGRAPHIC FINDING IN THE CHEST. Assessment and Plan - Diagnosis (1) Alcohol abuse Is this a current diagnosis for this admission?: Yes Plan: Advised on cessation. States he will think about it. See plan above for alcohol withdrawal. 12/22/2018-patient has a history of heavy alcohol abuse to watch for the DTs while he was here. Patient was on IV lorazepam and started on IV diazepam also today. Patient is enough stable enough to go to telemetry today. (2) Alcohol withdrawal Qualifiers: Complication of substance-induced condition: uncomplicated Qualified Code(s): F10.230 - Alcohol dependence with withdrawal, uncomplicated Is this a current diagnosis for this admission?: Yes Plan: History of alcohol abuse-states he drinks vodka at home daily. Alcohol level elevated at this time. There is concern for alcohol withdrawal since he was a little tremulous and diaphoretic in the ED. we will place him on seizure precautions. Ativan as needed for agitation and seizures. Discussed about alcohol cessation. Will check folate and B12 levels. Start him on folate, thiamine and multivitamins. 12/22/2018-patient is a heavy alcohol user he drinks "quite home on daily basis. Alcohol level was 59 at the time of admission. Patient was anxious and restless and with tremors in the emergency room is also diaphoretic. Aspiration fall sei zure precautions are requested. He is on Ativan on as-needed basis. Started on diazepam also. He is receiving banana bag IV. To watch for the DTs. (3) Hypertensive emergency Is this a current diagnosis for this admission?: Yes Plan: History of hypertension but noncompliant at home as he has not been taking his lisinopril 10 mg daily. He does not have a primary care doctor and only goes to the urgent care for medical issues. In the ED after arrival he received 10 mg lisinopril, Ativan 1 mg, 0.5 mg, clonidine 0.1 mg, labetalol 10 mg IV and metoprolol 5 mg IV and his blood pressure was still elevated. He was noted to be diaphoretic and having tremors and there was concern for alcohol withdrawal since his alcohol level came elevated. Last drink was 7 PM last night. At this time there is concern for withdrawal seizures-we will place him in ICU overnight to keep close observation and start him on a Precedex drip to control his blood pressure better. We will check lipid panel, A1c, TSH, INR/PT, and ammonia level. 12/22/2018-patient is given the history of hypertension but is not on any home medications apparently he stopped taking medications for a while. In the emergency room he received lisinopril 10 mg, clonidine 0.1 mg, labetalol 10 mg IV, metoprolol 5 mg IV. Blood pressure today is 109/69. Controlled. Precedex drip is discontinued today. (4) Hyponatremia Is this a current diagnosis for this admission?: Yes Plan: Unclear but likely secondary to alcohol abuse. He does not seem to be volume overloaded. We will monitor him for now. Consulted on alcohol cessation. 12/22/2018-serum sodium level is 137 today. Patient is not hypervolemic. Hyponatremia probably secondary to alcohol abuse and poor oral intake. (5) Tobacco abuse Is this a current diagnosis for this admission?: Yes Plan: Counseled on cessation. Offered him pain patch but he declines at this time. Currently smokes 1 pack/day. 12/22/2018-patient is a chronic heavy smoker he smokes on daily basis. Smoking counseling was provided for more than 10 minutes. He was placed on nicotine patch. (6) Transaminitis Is this a current diagnosis for this admission?: Yes Plan: Noted on CMP-elevated LFTs most likely secondary to alcohol abuse. Will get right upper quadrant ultrasound to reevaluate further. Discussed about alcohol cessation. 12/22/2018-elevated liver enzymes may be secondary to alcohol abuse. Ultrasound of the right upper quadrant was requested. Ultrasound shows fatty liver. Elevated liver enzymes may be secondary to fatty liver. - Time Time Spent with patient: 15-24 minutes Smoking Cessation Education: over 10 minutes Medications reviewed and adjusted accordingly: Yes Anticipated discharge: Home
[2018-12-22] MEDS: POTASSIUM CHLORIDE 20 MEQ/15 ML UDCUP PO SCH ×2 (11:50→21:05)
[2018-12-22] MEDS: HYDRALAZINE HCL INJ/PF 20 MG/1 ML SDV IV PRN ×2 (15:15→19:41)
[2018-12-22] MEDS: NICOTINE 21 MG/24 HR PATCH.TD24 TD SCH (15:35)
[2018-12-22] MEDS ORDERED: NORMAL SALINE 1000 ML 1,000 ML with POTASSIUM CHLORIDE 20 MEQ, MAGNESIUM SULFATE 8 MEQ,... IV SCH ×5 (18:00)
[2018-12-22] MEDS: LORAZEPAM INJ 2 MG/1 ML VIAL IV PRN ×2 (18:38→21:55)
[2018-12-22] MEDS: DIAZEPAM INJ 10 MG/2 ML DISP.SYRIN IV PRN (20:50)
[2018-12-22] MEDS: LORAZEPAM INJ 2 MG/1 ML VIAL ONE ×2 (22:07→22:09)
[2018-12-22] MEDS ORDERED: DIAZEPAM INJ 10 MG/2 ML DISP.SYRIN IV ONE (22:30)
[2018-12-22] MEDS ORDERED: LORAZEPAM INJ 2 MG/1 ML VIAL IV SCH (22:30)
[2018-12-22] MEDS ORDERED: LORAZEPAM INJ 2 MG/1 ML VIAL IV ONE ×3 (22:30→23:59)
[2018-12-22] MEDS ORDERED: LORAZEPAM INJ 2 MG/1 ML VIAL ONE ×3 (23:01→23:48)
[2018-12-23] MEDS ORDERED: LORAZEPAM INJ 2 MG/1 ML VIAL ONE (00:08)
[2018-12-23] MEDS: DIAZEPAM INJ 10 MG/2 ML DISP.SYRIN IV PRN (00:59)
[2018-12-23] MEDS: DIAZEPAM INJ 10 MG/2 ML DISP.SYRIN IV SCH ×2 (01:04→01:12)
[2018-12-23] MEDS ORDERED: DIAZEPAM INJ 10 MG/2 ML DISP.SYRIN ONE ×2 (01:04→01:12)
[2018-12-23] MEDS ORDERED: PROPOFOL 1,000 MG/100 ML INFUS..BTL IV ONE ×2 (01:06→03:01)
[2018-12-23] MEDS ORDERED: DIAZEPAM INJ 10 MG/2 ML DISP.SYRIN IV ONE (01:30)
[2018-12-23] MEDS ORDERED: PROPOFOL INJ 200 MG/20 ML VIAL IV ONE (01:59)
--- NOTE | 2018-12-23 02:09 | RADIOLOGY REPORT (SQ) ---
EXAM DESCRIPTION: XR CHEST 1 VIEW COMPLETED DATE/TME: 12/23/2018 00:00 CLINICAL HISTORY: 43 years, Male, INTUBATION COMPARISON: 12/21/2018 chest NUMBER OF VIEWS: 1 TECHNIQUE: Portable chest LIMITATIONS: None. FINDINGS: Heart size is stable. Enteric tube partially seen. Endotracheal tube is 9.6 cm above the ammy. Advancement recommended. Lungs are clear. No pneumothorax IMPRESSION: Endotracheal and enteric tubes are in place. Advancement of the endotracheal tube recommended. copyright 2010 [employer]- All Rights Reserved
[2018-12-23] MEDS: LORAZEPAM 24 MG/240 ML BAG IV PRN ×7 (03:08→21:55)
[2018-12-23 03:31] LABS: ABSOLUTE BASOPHILS # (AUTO) 0.1 10^3/uL (0.0-0.2); ABSOLUTE LYMPHOCYTES (AUTO) 0.6 10^3/uL (0.5-4.7); ABSOLUTE MONOCYTES (AUTO) 0.4 10^3/uL (0.1-1.4); ABSOLUTE NEUT (AUTO) 5.4 10^3/uL (1.7-8.2); BASOPHILS % (AUTO) 0.8 % (0-2); EOSINOPHILS % (AUTO) 0.4 % (0-6); HEMATOCRIT 40.9 % (37.9-51.0); HEMOGLOBIN 14.4 g/dL (13.5-17.0); LYMPHOCYTES % (AUTO) 9.8 % (13-45); MEAN CORPUSCULAR HEMOGLOBIN 36.8 pg (27.0-33.4); MEAN CORPUSCULAR HGB CONC 35.3 g/dL (32.0-36.0); MEAN CORPUSCULAR VOLUME 104 fl (80-97); MONOCYTES % (AUTO) 5.7 % (3-13); PLATELET COUNT 118 10^3/uL (150-450); RED BLOOD COUNT 3.92 10^6/uL (4.35-5.55); RED CELL DISTRIBUTION WIDTH 13.9 % (11.5-14.0); SEGMENTED NEUTROPHILS % (AUTO) 83.3 % (42-78); TOTAL CELLS COUNTED % (AUTO) 100 %; WHITE BLOOD COUNT 6.5 10^3/uL (4.0-10.5)
[2018-12-23 03:46] LABS: ALANINE AMINOTRANSFERASE 184 U/L (21-72); ALBUMIN 3.8 g/dL (3.5-5.0); ALKALINE PHOSPHATASE 90 U/L (38-126); ANION GAP 6 (5-19); ASPARTATE AMINO TRANSFERASE 184 U/L (17-59); BILIRUBIN,DIRECT 0.4 mg/dL (0.0-0.4); BILIRUBIN,TOTAL 0.8 mg/dL (0.2-1.3); BLOOD UREA NITROGEN 14 mg/dL (7-20); CALCIUM 9.1 mg/dL (8.4-10.2); CARBON DIOXIDE 21 mmol/L (22-30); CHLORIDE 108 mmol/L (98-107); GLUCOSE 165 mg/dL (75-110); POTASSIUM 3.7 mmol/L (3.6-5.0); SODIUM 135.4 mmol/L (137-145); TOTAL PROTEIN 6.6 g/dL (6.3-8.2)
[2018-12-23 05:18] LABS: ARTERIAL BLOOD BASE EXCESS -1.4 mmol/L; ARTERIAL BLOOD H2CO3 1.32 mmol/L (1.05-1.35); ARTERIAL BLOOD HCO3 24.1 mmol/L (20-24); ARTERIAL BLOOD O2 SATURATION 97.9 % (94-98); ARTERIAL BLOOD PCO2 43.7 mmHg (35-45); ARTERIAL BLOOD PH 7.36 (7.35-7.45); ARTERIAL BLOOD PO2 110.9 mmHg (80-100); ARTERIAL BLOOD TOTAL CO2 25.5 mmol/L (23-27)
[2018-12-23 05:27] LABS: ARTERIAL BLOOD FIO2 40%
[2018-12-23] MEDS ORDERED: PHARMACY COMMUNICATION ORDER MC NR (05:45)
[2018-12-23] MEDS: PROPOFOL 1,000 MG/100 ML INFUS..BTL IV PRN ×6 (06:08→23:14)
[2018-12-23] MEDS ORDERED: NOREPINEPHRINE BITARTRATE INJ/PF 4 MG/4 ML SDV IV ONE (06:58)
--- NOTE | 2018-12-23 07:14 | RADIOLOGY REPORT (SQ) ---
EXAM DESCRIPTION: X-ray single view chest. CLINICAL HISTORY: 43 years Male, ETT PLACEMENT COMPARISON: 12/23/2018 at 1:54 AM and 12/21/2018 TECHNIQUE: Single portable x-ray view of the chest performed on 12/23/2018 at 6:15 AM FINDINGS: The lungs are slightly hypoinflated. There is mild left perihilar opacification likely due to atelectasis. The lungs are otherwise clear. There is no evidence of a pneumothorax. There is a retrocardiac opacity which may be due to a hiatal hernia. The cardiac silhouette is prominent and may be accentuated by the portable technique and hypoinflated lungs. The mediastinal contours are normal. No acute osseous abnormality is identified. No focal soft tissue abnormalities are seen. Lines and tubes: The endotracheal tube terminates below the thoracic inlet and above the ammy. The feeding tube extends below the diaphragm. IMPRESSION: 1. New minimal left perihilar atelectasis. 2. Hypoinflation of the lungs. 3. Suspect hiatal hernia. 4. Life support lines and tubes present as described above.
[2018-12-23] MEDS: NORMAL SALINE 1000 ML 1,000 ML IV PRN ×2 (07:19→15:20)
[2018-12-23] MEDS: DEXTROSE 5%-WATER 250 ML with NOREPINEPHRINE BITARTRATE 4 MG IV PRN ×4 (07:30→21:09)
--- NOTE | 2018-12-23 08:38 | PDOC PROGRESS REPORT ---
Subjective Progress Note for:: 12/23/18 Subjective:: 43 year old male with a past medical history of hypertension and obesity, who presented to the ED sent from urgent care secondary to elevated blood pressure. Patient states that he cut his finger over the left hand a few weeks ago and went back to the urgent care to have it looked at. While he was at the urgent care he was found to have a systolic blood pressure greater than 220 and was told to go to the ER immediately. Patient tells me that this has happened to him in the past when he was in the ED for elevated blood pressure but he was never admitted. Patient also tells me that he was started on medication for hypertension but is not compliant with that and has not been taking it. He denies any symptoms of chest pain, shortness of breath, abdominal pain, nausea or vomiting, dizziness, blurry vision or headaches. He does admit to smoking 1 pack of cigarette per day. He also admits to drinking alcohol daily-his choice alcohol is vodka- 2/5th liquor in a week. States that he also drinks beer on the weekends. He denies use of any illicit drugs. He denies any family history of cancer or [place] before the age of 50. 12/22/[id number]-dswu-old male with history of hypertension obesity came to the emergency room with high blood pressure. He went to the urgent care and found to have systolic blood pressure of more than 220 he was advised to come to the emergency room for further evaluation. He also admitted to drink heavily on daily basis. On examination alert and awake communicating well. 12/23/2018-patient was transferred back to ICU last night because he went into full-blown alcohol withdrawal. He received several doses of Valium and Ativan without much help and he was intubated and transferred to ICU. Presently he is on Ativan 8 mg/min and the deprivan 35 mcg/kg/min the vent settings are SIMV with rate of 14, PEEP of 5 on 40% oxygen and a tidal volume of 500. ABG this morning pH is 1.36/PCO2 43.7/PO2 110 bicarb is 24 this is on 40% oxygen. Patient is still hypotensive this morning started on normal saline at 125 cc/h, and he was started on Levophed this morning. plan is to start him on prophylactic antibiotics. Sutures are requested. Reason For Visit: UNCONTROLLED HTN,ALCOHOL WITHDRAWAL Physical Exam Vital Signs: Temp Pulse Resp BP Pulse Ox 96.6 F L 104 H 16 78/54 L 94 12/23/18 06:37 12/22/18 19:41 12/23/18 06:37 12/23/18 06:37 12/23/18 06:37 Intake & Output 12/22/18 12/23/18 12/24/18 06:59 06:59 06:59 Intake Total 1628.2 452 Output Total 8000 925 Balance -6371.8 -473 Weight 110.8 kg 113.3 kg General appearance: PRESENT: obese, other - Patient was properly sedated on mechanical ventilation. Head exam: PRESENT: atraumatic Eye exam: PRESENT: other - Pupils are constricted but reactive. Mouth exam: PRESENT: moist, tongue midline Neck exam: ABSENT: carotid bruit, JVD, lymphadenopathy, thyromegaly Respiratory exam: PRESENT: clear to auscultation john. ABSENT: rales, rhonchi, wheezes GI/Abdominal exam: PRESENT: normal bowel sounds, soft. ABSENT: distended, guarding, mass, organolmegaly, rebound, tenderness Extremities exam: PRESENT: full ROM. ABSENT: calf tenderness, clubbing, pedal edema Neurological exam: PRESENT: alert, awake, oriented to person, oriented to place, oriented to time, oriented to situation, CN II-XII grossly intact. ABSENT: motor sensory deficit Psychiatric exam: PRESENT: appropriate affect, normal mood. ABSENT: homicidal ideation, suicidal ideation Results Laboratory Results: 12/23/18 03:14 12/23/18 03:14 12/23/18 12/23/18 12/23/18 03:14 03:14 05:05 WBC 6.5 RBC 3.92 L Hgb 14.4 Hct 40.9 MCV 104 H MCH 36.8 H MCHC 35.3 RDW 13.9 Plt Count 118 L Seg Neutrophils % 83.3 H Lymphocytes % 9.8 L Monocytes % 5.7 Eosinophils % 0.4 Basophils % 0.8 Absolute Neutrophils 5.4 Absolute Lymphocytes 0.6 Absolute Monocytes 0.4 Absolute Eosinophils 0.0 Absolute Basophils 0.1 Carbonic Acid 1.32 HCO3/H2CO3 Ratio 18:1 ABG pH 7.36 ABG pCO2 43.7 ABG pO2 110.9 H ABG HCO3 24.1 H ABG O2 Saturation 97.9 ABG Base Excess -1.4 FiO2 40% Sodium 135.4 L Potassium 3.7 Chloride 108 H Carbon Dioxide 21 L Anion Gap 6 BUN 14 Creatinine 0.95 Est GFR ( Amer) > 60 Est GFR (Non-Af Amer) > 60 Glucose 165 H Calcium 9.1 Magnesium 1.6 Total Bilirubin 0.8 AST 184 H ALT 184 H Alkaline Phosphatase 90 Total Protein 6.6 Albumin 3.8 12/21/18 12/21/18 12/21/18 10:35 14:55 20:50 Troponin I < 0.012 < 0.012 0.015 12/22/18 22:25 Troponin I < 0.012 Impressions: Abdomen Ultrasound 12/21/18 00:00 IMPRESSION: FATTY INFILTRATION OF THE LIVER. NO OTHER SIGNIFICANT FINDING IN THE VISUALIZED ABDOMEN. Chest X-Ray 12/23/18 06:00 IMPRESSION: 1. New minimal left perihilar atelectasis. 2. Hypoinflation of the lungs. 3. Suspect hiatal hernia. 4. Life support lines and tubes present as described above. Assessment and Plan - Diagnosis (1) Alcohol abuse Is this a current diagnosis for this admission?: Yes Plan: Advised on cessation. States he will think about it. See plan above for alcohol withdrawal. 12/22/2018-patient has a history of heavy alcohol abuse to watch for the DTs while he was here. Patient was on IV lorazepam and started on IV diazepam also today. Patient is enough stable enough to go to telemetry today. 12/23/2018-patient has history of heavy alcohol abuse and he went into full-blown alcohol withdrawal last night he got large dose of IV Ativan and diazepam without much relief he was intubated and transferred to ICU. Presently he is on propofol 35 mcg/kg/min and Ativan 8 mg minute. To start him on NG tube feeding. He was hypotensive started on normal saline at 125 cc/h, and started on Levophed. (2) Alcohol withdrawal Qualifiers: Complication of substance-induced condition: uncomplicated Qualified Code(s): F10.230 - Alcohol dependence with withdrawal, uncomplicated Is this a current diagnosis for this admission?: Yes Plan: History of alcohol abuse-states he drinks vodka at home daily. Alcohol level elevated at this time. There is concern for alcohol withdrawal since he was a little tremulous and diaphoretic in the ED. we will place him on seizure precautions. Ativan as needed for agitation and seizures. Discussed about alcohol cessation. Will check folate and B12 levels. Start him on folate, thiamine and multivitamins. 12/22/2018-patient is a heavy alcohol user he drinks "quite home on daily basis. Alcohol level was 59 at the time of admission. Patient was anxious and restless and with tremors in the emergency room is also diaphoretic. Aspiration fall seizure precautions are requested. He is on Ativan on as-needed basis. Started on diazepam also. He is receiving banana bag IV. To watch for the DTs. 12/23/2018-patient has history of heavy alcohol use went into alcohol withdrawal last night status post intubation. Recently properly sedated with IV Ativan and deprivan (3) Hypertensive emergency Is this a current diagnosis for this admission?: Yes Plan: History of hypertension but noncompliant at home as he has not been taking his lisinopril 10 mg daily. He does not have a primary care doctor and only goes to the urgent care for medical issues. In the ED after arrival he received 10 mg lisinopril, Ativan 1 mg, 0.5 mg, clonidine 0.1 mg, labetalol 10 mg IV and m etoprolol 5 mg IV and his blood pressure was still elevated. He was noted to be diaphoretic and having tremors and there was concern for alcohol withdrawal since his alcohol level came elevated. Last drink was 7 PM last night. At this time there is concern for withdrawal seizures-we will place him in ICU overnight to keep close observation and start him on a Precedex drip to control his blood pressure better. We will check lipid panel, A1c, TSH, INR/PT, and ammonia level. 12/22/2018-patient is given the history of hypertension but is not on any home medications apparently he stopped taking medications for a while. In the emergency room he received lisinopril 10 mg, clonidine 0.1 mg, labetalol 10 mg IV, metoprolol 5 mg IV. Blood pressure today is 109/69. Controlled. Precedex drip is discontinued today. 12/23/2018-patient came in with very high blood pressures last night become extre shannan hypertensive systolic blood pressure went up to more than 200, presently he is hypotensive, hypothermic blood cultures are down drawn started on antibiotics started on normal saline 125 cc/h and Levophed. (4) Hyponatremia Is this a current diagnosis for this admission?: Yes Plan: Unclear but likely secondary to alcohol abuse. He does not seem to be volume overloaded. We will monitor him for now. Consulted on alcohol cessation. 12/22/2018-serum sodium level is 137 today. Patient is not hypervolemic. Hyponatremia probably secondary to alcohol abuse and poor oral intake. 12/23/2018-patient's serum sodium level is 135 hyponatremia due to alcohol related issues and poor oral intake is resolved. (5) Tobacco abuse Is this a current diagnosis for this admission?: Yes Plan: Counseled on cessation. Offered him pain patch but he declines at this time. Currently smokes 1 pack/day. 12/22/2018-patient is a chronic heavy smoker he smokes on daily basis. Smoking counseling was provided for more than 10 minutes. He was placed on nicotine patch. 12/23/2018-patient is a chronic smoker started on nicotine patch. (6) Transaminitis Is this a current diagnosis for this admission?: Yes Plan: 12/23/2018-came in with elevated liver enzymes most likely secondary to alcohol abuse causing hepatic injury. Abdominal ultrasound was done shows fatty liver. (7) Hypotension Is this a current diagnosis for this admission?: Yes Plan: 12/23/2018-patient last his blood pressure is 78/54 on normal saline at 120 cc/h, on Levophed. Patient is also hypothermic with a temperature of 96.6 started on IV antibiotic therapy vancomycin and Zosyn blood cultures are requested. Plan is to rule out sepsis. To request for lactic acid levels today. - Time Time Spent with patient: 15-24 minutes Medications reviewed and adjusted accordingly: Yes Anticipated discharge: Home
[2018-12-23] MEDS ORDERED: PIPERACILLIN/TAZOBACTAM 3.375 GM VIAL IV SCH (08:45)
[2018-12-23] MEDS: FAMOTIDINE 20 MG TABLET PO SCH ×2 (09:12→17:29)
[2018-12-23] MEDS: POTASSIUM CHLORIDE 20 MEQ/15 ML UDCUP PO SCH (09:13)
[2018-12-23] MEDS: ENOXAPARIN SODIUM INJ 40 MG/0.4 ML DISP.SYRIN SUBCUT SCH (09:13)
[2018-12-23] MEDS: NICOTINE 21 MG/24 HR PATCH.TD24 TD SCH (09:13)
[2018-12-23] MEDS: LISINOPRIL 10 MG TABLET PO SCH (09:14)
[2018-12-23] MEDS ORDERED: VANCOMYCIN HCL INJ 1000 MG VIAL IV SCH (10:00)
[2018-12-23] MEDS: VANCOMYCIN HCL 1,500 MG in DEXTROSE 5%-WATER 250 ML IV SCH ×2 (11:40→17:28)
[2018-12-23] MEDS: POTASSIUM CHLORIDE 20 MEQ/15 ML UDCUP NG SCH ×2 (11:41→22:10)
[2018-12-23] MEDS: PIPERACILLIN SODIUM/TAZOBACTAM 3.375 GM in NORMAL SALINE 100 ML IV SCH ×3 (11:43→21:06)
[2018-12-23] MEDS: NORMAL SALINE 1000 ML 1,000 ML with POTASSIUM CHLORIDE 20 MEQ, MAGNESIUM SULFATE 8 MEQ,... IV SCH ×5 (17:36)
[2018-12-23] MEDS ORDERED: SUCCINYLCHOLINE CHLORIDE INJ 200 MG/10 ML VIAL ONE (21:15)
[2018-12-24] MEDS: LORAZEPAM 24 MG/240 ML BAG IV PRN ×8 (00:39→22:26)
[2018-12-24] MEDS: PROPOFOL 1,000 MG/100 ML INFUS..BTL IV PRN ×8 (01:41→22:01)
[2018-12-24] MEDS: NORMAL SALINE 1000 ML 1,000 ML IV PRN (01:42)
[2018-12-24] MEDS: VANCOMYCIN HCL 1,500 MG in DEXTROSE 5%-WATER 250 ML IV SCH ×2 (02:05→09:29)
[2018-12-24] MEDS: PIPERACILLIN SODIUM/TAZOBACTAM 3.375 GM in NORMAL SALINE 100 ML IV SCH ×4 (03:21→21:53)
[2018-12-24 04:16] LABS: ABSOLUTE BASOPHILS # (AUTO) 0.1 10^3/uL (0.0-0.2); ABSOLUTE EOSINOPHILS # (AUTO) 0.2 10^3/uL (0.0-0.6); ABSOLUTE LYMPHOCYTES (AUTO) 1.2 10^3/uL (0.5-4.7); ABSOLUTE MONOCYTES (AUTO) 0.5 10^3/uL (0.1-1.4); ABSOLUTE NEUT (AUTO) 4.2 10^3/uL (1.7-8.2); BASOPHILS % (AUTO) 1.1 % (0-2); EOSINOPHILS % (AUTO) 2.6 % (0-6); HEMATOCRIT 39.1 % (37.9-51.0); HEMOGLOBIN 13.2 g/dL (13.5-17.0); LYMPHOCYTES % (AUTO) 19.7 % (13-45); MEAN CORPUSCULAR HGB CONC 33.8 g/dL (32.0-36.0); MEAN CORPUSCULAR VOLUME 107 fl (80-97); MONOCYTES % (AUTO) 7.5 % (3-13); PLATELET COUNT 107 10^3/uL (150-450); RED BLOOD COUNT 3.67 10^6/uL (4.35-5.55); RED CELL DISTRIBUTION WIDTH 14.4 % (11.5-14.0); SEGMENTED NEUTROPHILS % (AUTO) 69.1 % (42-78); TOTAL CELLS COUNTED % (AUTO) 100 %
[2018-12-24 04:31] LABS: ARTERIAL BLOOD BASE EXCESS -3.4 mmol/L; ARTERIAL BLOOD H2CO3 1.14 mmol/L (1.05-1.35); ARTERIAL BLOOD HCO3 21.4 mmol/L (20-24); ARTERIAL BLOOD O2 SATURATION 98.1 % (94-98); ARTERIAL BLOOD PCO2 37.9 mmHg (35-45); ARTERIAL BLOOD PH 7.37 (7.35-7.45); ARTERIAL BLOOD PO2 115.5 mmHg (80-100); ARTERIAL BLOOD TOTAL CO2 22.5 mmol/L (23-27)
[2018-12-24 04:33] LABS: ARTERIAL BLOOD FIO2 40%
[2018-12-24 04:33] LABS: ALANINE AMINOTRANSFERASE 239 U/L (21-72); ALBUMIN 3.3 g/dL (3.5-5.0); ALKALINE PHOSPHATASE 77 U/L (38-126); ANION GAP 5 (5-19); ASPARTATE AMINO TRANSFERASE 212 U/L (17-59); BILIRUBIN,DIRECT 0.3 mg/dL (0.0-0.4); BILIRUBIN,TOTAL 0.6 mg/dL (0.2-1.3); BLOOD UREA NITROGEN 6 mg/dL (7-20); CALCIUM 8.5 mg/dL (8.4-10.2); CARBON DIOXIDE 19 mmol/L (22-30); CHLORIDE 114 mmol/L (98-107); GLUCOSE 132 mg/dL (75-110); SODIUM 138.4 mmol/L (137-145)
[2018-12-24] MEDS: FAMOTIDINE 20 MG TABLET PO SCH ×2 (05:02→17:34)
[2018-12-24] MEDS ORDERED: NORMAL SALINE 1000 ML 1,000 ML IV PRN (08:08)
--- NOTE | 2018-12-24 08:15 | PDOC PROGRESS REPORT ---
Subjective Progress Note for:: 12/24/18 Subjective:: 43 year old male with a past medical history of hypertension and obesity, who presented to the ED sent from urgent care secondary to elevated blood pressure. Patient states that he cut his finger over the left hand a few weeks ago and went back to the urgent care to have it looked at. While he was at the urgent care he was found to have a systolic blood pressure greater than 220 and was told to go to the ER immediately. Patient tells me that this has happened to him in the past when he was in the ED for elevated blood pressure but he was never admitted. Patient also tells me that he was started on medication for hypertension but is not compliant with that and has not been taking it. He denies any symptoms of chest pain, shortness of breath, abdominal pain, nausea or vomiting, dizziness, blurry vision or headaches. He does admit to smoking 1 pack of cigarette per day. He also admits to drinking alcohol daily-his choice alcohol is vodka- 2/5th liquor in a week. States that he also drinks beer on the weekends. He denies use of any illicit drugs. He denies any family history of cancer or MD before the age of 50. 12/[id number]-dium-old male with history of hypertension obesity came to the emergency room with high blood pressure. He went to the urgent care and found to have systolic blood pressure of more than 220 he was advised to come to the emergency room for further evaluation. He also admitted to drink heavily on daily basis. On examination alert and awake communicating well. 12/23/2018-patient was transferred back to ICU last night because he went into full-blown alcohol withdrawal. He received several doses of Valium and Ativan without much help and he was intubated and transferred to ICU. Presently he is on Ativan 8 mg/min and the deprivan 35 mcg/kg/min the vent settings are SIMV with rate of 14, PEEP of 5 on 40% oxygen and a tidal volume of 500. ABG this morning pH is 1.36/PCO2 43.7/PO2 110 bicarb is 24 this is on 40% oxygen. Patient is still hypotensive this morning started on normal saline at 125 cc/h, and he was started on Levophed this morning. plan is to start him on prophylactic antibiotics. Sutures are requested. 12/24/2018-no acute events in the last 24 hours. Patient is afebrile. Patient is still on mechanical ventilation on 35% oxygen. ABG this morning pH is 7.37 PCO2 38/PO2 115 bicarb is 21.4 with oxygen saturation of 38% it was done on 40% oxygen requested the nurse to decrease the oxygen concentration to 30%. Blood pressure this morning is 114/70 patient is off Levophed. Patient is presently on Ativan 8 mg/min IV and deprivan 40 mcg/kg/min. Plan to decrease the IV fluids from 125 cc to 75 cc/h. Reason For Visit: UNCONTROLLED HTN,ALCOHOL WITHDRAWAL Physical Exam Vital Signs: Temp Pulse Resp BP Pulse Ox 96.6 F L 62 14 102/73 98 12/24/18 07:59 12/24/18 07:59 12/24/18 07:59 12/24/18 07:59 12/24/18 07:59 Intake & Output 12/23/18 12/24/18 12/25/18 06:59 06:59 06:59 Intake Total 540 5599 Output Total 925 3315 480 Balance -385 2284 -480 Weight 113.3 kg 112.8 kg General appearance: PRESENT: no acute distress, well-developed, other - Patient is under sedation on mechanical ventilation. Head exam: PRESENT: atraumatic Eye exam: PRESENT: PERRLA Mouth exam: PRESENT: moist Neck exam: ABSENT: carotid bruit, JVD, lymphadenopathy, thyromegaly Respiratory exam: PRESENT: clear to auscultation john. ABSENT: rales, rhonchi, wheezes Cardiovascular exam: PRESENT: RRR. ABSENT: diastolic murmur, rubs, systolic murmur GI/Abdominal exam: PRESENT: normal bowel sounds, soft, other - Patient is receiving feeding by NG tube.. ABSENT: distended, guarding, mass, organolmegaly, rebound, tenderness Gentrourinary exam: PRESENT: indwelling catheter Extremities exam: PRESENT: full ROM. ABSENT: calf tenderness, clubbing, pedal edema Neurological exam: PRESENT: other - Patient under sedation on mechanical ventilation pupils are equal and reactive. Results Laboratory Results: 12/24/18 04:02 12/24/18 04:02 12/23/18 12/24/18 12/24/18 10:04 04:02 04:02 WBC 6.0 RBC 3.67 L Hgb 13.2 L Hct 39.1 MCV 107 H MCH 36.0 H MCHC 33.8 RDW 14.4 H Plt Count 107 L Seg Neutrophils % 69.1 Lymphocytes % 19.7 Monocytes % 7.5 Eosinophils % 2.6 Basophils % 1.1 Absolute Neutrophils 4.2 Absolute Lymphocytes 1.2 Absolute Monocytes 0.5 Absolute Eosinophils 0.2 Absolute Basophils 0.1 Carbonic Acid HCO3/H2CO3 Ratio ABG pH ABG pCO2 ABG pO2 ABG HCO3 ABG O2 Saturation ABG Base Excess FiO2 Sodium 138.4 Potassium 4.0 Chloride 114 H Carbon Dioxide 19 L Anion Gap 5 BUN 6 L Creatinine 0.90 Est GFR ( Amer) > 60 Est GFR (Non-Af Amer) > 60 Glucose 132 H Lactic Acid 0.9 Calcium 8.5 Magnesium 2.1 Total Bilirubin 0.6 AST 212 H ALT 239 H Alkaline Phosphatase 77 Total Protein 6.0 L Albumin 3.3 L 12/24/18 04:22 WBC RBC Hgb Hct MCV MCH MCHC RDW Plt Count Seg Neutrophils % Lymphocytes % Monocytes % Eosinophils % Basophils % Absolute Neutrophils Absolute Lymphocytes Absolute Monocytes Absolute Eosinophils Absolute Basophils Carbonic Acid 1.14 HCO3/H2CO3 Ratio 18:1 ABG pH 7.37 ABG pCO2 37.9 ABG pO2 115.5 H ABG HCO3 21.4 ABG O2 Saturation 98.1 H ABG Base Excess -3.4 FiO2 40% Sodium Potassium Chloride Carbon Dioxide Anion Gap BUN Creatinine Est GFR ( Amer) Est GFR (Non-Af Amer) Glucose Lactic Acid Calcium Magnesium Total Bilirubin AST ALT Alkaline Phosphatase Total Protein Albumin 12/21/18 12/21/18 12/21/18 10:35 14:55 20:50 Troponin I < 0.012 < 0.012 0.015 12/22/18 22:25 Troponin I < 0.012 Impressions: Abdomen Ultrasound 12/21/18 00:00 IMPRESSION: FATTY INFILTRATION OF THE LIVER. NO OTHER SIGNIFICANT FINDING IN THE VISUALIZED ABDOMEN. Assessment and Plan - Diagnosis (1) Alcohol abuse Is this a current diagnosis for this admission?: Yes Plan: Advised on cessation. States he will think about it. See plan above for alcohol withdrawal. 12/22/2018-patient has a history of heavy alcohol abuse to watch for the DTs while he was here. Patient was on IV lorazepam and started on IV diazepam also today. Patient is enough stable enough to go to telemetry today. 12/23/2018-patient has history of heavy alcohol abuse and he went into full-blown alcohol withdrawal last night he got large dose of IV Ativan and diazepam without much relief he was intubated and transferred to ICU. Presently he is on propofol 35 mcg/kg/min and Ativan 8 mg minute. To start him on NG tube feeding. He was hypotensive started on normal saline at 125 cc/h, and started on Levophed. 12/24/2018-patient is receiving banana bag, on IV Ativan 8 mg/min and deep Ativan 40 mcg/kg/min. Is properly sedated now. No acute events in the last 24 hours. Be watching for the DTs. Patient is receiving NG tube feedings. Plan is to decrease the IV fluids to 75 cc/h continue to watch for DTs. Urinary output is 3.3 L. Plan to repeat the labs tomorrow morning. (2) Alcohol withdrawal Qualifiers: Complication of substance-induced condition: uncomplicated Qualified Code(s): F10.230 - Alcohol dependence with withdrawal, uncomplicated Is this a current diagnosis for this admission?: Yes Plan: History of alcohol abuse-states he drinks vodka at home daily. Alcohol level elevated at this time. There is concern for alcohol withdrawal since he was a little tremulous and diaphoretic in the ED. we will place him on seizure precautions. Ativan as needed for agitation and seizures. Discussed about alcohol cessation. Will check folate and B12 levels. Start him on folate, thiamine and multivitamins. 12/22/2018-patient is a heavy alcohol user he drinks "quite home on daily basis. Alcohol level was 59 at the time of admission. Patient was anxious and restless and with tremors in the emergency room is also diaphoretic. Aspiration fall seizure precautions are requested. He is on Ativan on as-needed basis. Started on diazepam also. He is receiving banana bag IV. To watch for the DTs. 12/23/2018-patient has history of heavy alcohol use went into alcohol withdrawal last night status post intubation. Recently properly sedated with IV Ativan and deprivan 12/24/2018-patient was a transfer back to ICU from [facility] yesterday for full blown alcohol withdrawal symptoms. He was promptly intubated and placed under sedation. He was also hypotensive started on Levophed blood pressures are improved liver 40s discontinued this morning presently on IV fluids 125 cc/h plan to decrease the fluid to 75 cc/h. Plan is to continue to provide the supportive measures. (3) Hypertensive emergency Is this a current diagnosis for this admission?: Yes Plan: History of hypertension but noncompliant at home as he has not been taking his lisinopril 10 mg daily. He does not have a primary care doctor and only goes to the urgent care for medical issues. In the ED after arrival he received 10 mg lisinopril, Ativan 1 mg, 0.5 mg, clonidine 0.1 mg, labetalol 10 mg IV and metoprolol 5 mg IV and his blood pressure was still elevated. He was noted to be diaphoretic and having tremors and there was concern for alcohol withdrawal since his alcohol level came elevated. Last drink was 7 PM last night. At this time there is concern for withdrawal seizures-we will place him in ICU overnight to keep close observation and start him on a Precedex drip to control his blood pressure better. We will check lipid panel, A1c, TSH, INR/PT, and ammonia level. 12/22/2018-patient is given the history of hypertension but is not on any home medications apparently he stopped taking medications for a while. In the emergency room he received lisinopril 10 mg, clonidine 0.1 mg, labetalol 10 mg IV, metoprolol 5 mg IV. Blood pressure today is 109/69. Controlled. Precedex drip is discontinued today. 12/23/2018-patient came in with very high blood pressures last night become extremely hypertensive systolic blood pressure went up to more than 200, presently he is hypotensive, hypothermic blood cultures are down drawn started on antibiotics started on normal saline 125 cc/h and Levophed. 12/24/2018-patient came in with very high blood pressures at the time of presentation in the emergency room now is hypotensive receiving IV fluids blood pressure was improved and Levophed was discontinued. Hypotension probably secondary to alcohol withdrawal symptoms and poor oral intake. (4) Hyponatremia Is this a current diagnosis for this admission?: Yes Plan: Unclear but likely secondary to alcohol abuse. He does not seem to be volume overloaded. We will monitor him for now. Consulted on alcohol cessation. 12/22/2018-serum sodium level is 137 today. Patient is not hypervolemic. Hyponatremia probably secondary to alcohol abuse and poor oral intake. 12/23/2018-patient's serum sodium level is 135 hyponatremia due to alcohol related issues and poor oral intake is resolved. 12/23/2018 patient's serum sodium level is 138 hyponatremia is resolved. (5) Tobacco abuse Is this a current diagnosis for this admission?: Yes (6) Transaminitis Is this a current diagnosis for this admission?: Yes Plan: 12/23/2018-came in with elevated liver enzymes most likely secondary to alcohol abuse causing hepatic injury. Abdominal ultrasound was done shows fatty liver. 12/24/2018-patient came in with elevated LFTs ultrasound was liver was done shows fatty liver. Transaminitis most likely secondary to fatty liver. (7) Hypotension Is this a current diagnosis for this admission?: Yes Plan: 12/23/2018-patient last his blood pressure is 78/54 on normal saline at 120 cc/h, on Levophed. Patient is also hypothermic with a temperature of 96.6 started on IV antibiotic therapy vancomycin and Zosyn blood cultures are requested. Plan is to rule out sepsis. To request for lactic acid levels today. Blood pressure today is 114/70 on normal saline at 125 cc/h hypotension due to full blown alcohol withdrawal symptoms resolved. - Time Time Spent with patient: 25-34 minutes Medications reviewed and adjusted accordingly: Yes Anticipated discharge: Home
[2018-12-24] MEDS: ENOXAPARIN SODIUM INJ 40 MG/0.4 ML DISP.SYRIN SUBCUT SCH (09:29)
[2018-12-24] MEDS: NICOTINE 21 MG/24 HR PATCH.TD24 TD SCH (09:29)
[2018-12-24] MEDS: DIAZEPAM INJ 10 MG/2 ML DISP.SYRIN IV PRN ×2 (09:45→15:44)
--- NOTE | 2018-12-24 10:03 | RADIOLOGY REPORT (SQ) ---
EXAM DESCRIPTION: CHEST SINGLE VIEW COMPLETED DATE/TIME: 12/24/2018 6:32 am REASON FOR STUDY: ETT PLACEMENT COMPARISON: None. NUMBER OF VIEWS: One view. TECHNIQUE: Single frontal radiographic image of the chest acquired. LIMITATIONS: None. FINDINGS: LUNGS AND PLEURA: Improved aeration in the left lung. No pneumothorax. MEDIASTINUM AND HEART: Stable heart size and mediastinal structures. SUPPORT DEVICES: Appropriate location without change. BONY STRUCTURES: No acute findings. HARDWARE: None. OTHER: No other significant finding. IMPRESSION: STABLE APPEARANCE OF THE CHEST. SUPPORT DEVICES UNCHANGED. Reading location - IP/workstation name: [email or web address]
[2018-12-24] MEDS: POTASSIUM CHLORIDE 20 MEQ/15 ML UDCUP NG SCH ×2 (13:18→21:54)
[2018-12-24] MEDS: NORMAL SALINE 1000 ML 1,000 ML with POTASSIUM CHLORIDE 20 MEQ, MAGNESIUM SULFATE 8 MEQ,... IV SCH ×5 (17:33)
[2018-12-25] MEDS: PROPOFOL 1,000 MG/100 ML INFUS..BTL IV PRN ×7 (00:56→23:41)
[2018-12-25] MEDS: LORAZEPAM 24 MG/240 ML BAG IV PRN ×6 (01:24→22:46)
[2018-12-25] MEDS: PIPERACILLIN SODIUM/TAZOBACTAM 3.375 GM in NORMAL SALINE 100 ML IV SCH ×4 (02:40→22:09)
[2018-12-25 05:20] LABS: ARTERIAL BLOOD BASE EXCESS -3.8 mmol/L; ARTERIAL BLOOD FIO2 30%; ARTERIAL BLOOD H2CO3 1.19 mmol/L (1.05-1.35); ARTERIAL BLOOD HCO3 21.4 mmol/L (20-24); ARTERIAL BLOOD O2 SATURATION 95.6 % (94-98); ARTERIAL BLOOD PCO2 39.6 mmHg (35-45); ARTERIAL BLOOD PH 7.35 (7.35-7.45); ARTERIAL BLOOD TOTAL CO2 22.6 mmol/L (23-27)
[2018-12-25] MEDS: FAMOTIDINE 20 MG TABLET PO SCH ×2 (05:20→17:33)
[2018-12-25 06:53] LABS: ABSOLUTE EOSINOPHILS # (AUTO) 0.2 10^3/uL (0.0-0.6); ABSOLUTE LYMPHOCYTES (AUTO) 1.1 10^3/uL (0.5-4.7); ABSOLUTE MONOCYTES (AUTO) 0.4 10^3/uL (0.1-1.4); EOSINOPHILS % (AUTO) 4.2 % (0-6); HEMATOCRIT 40.6 % (37.9-51.0); HEMOGLOBIN 13.8 g/dL (13.5-17.0); LYMPHOCYTES % (AUTO) 23.5 % (13-45); MEAN CORPUSCULAR HEMOGLOBIN 36.9 pg (27.0-33.4); MEAN CORPUSCULAR VOLUME 109 fl (80-97); RED BLOOD COUNT 3.75 10^6/uL (4.35-5.55); RED CELL DISTRIBUTION WIDTH 14.2 % (11.5-14.0); SEGMENTED NEUTROPHILS % (AUTO) 63.3 % (42-78); TOTAL CELLS COUNTED % (AUTO) 100 %; WHITE BLOOD COUNT 4.7 10^3/uL (4.0-10.5)
[2018-12-25 07:17] LABS: ANION GAP 6 (5-19); BLOOD UREA NITROGEN 3 mg/dL (7-20); CALCIUM 8.4 mg/dL (8.4-10.2); CARBON DIOXIDE 20 mmol/L (22-30); CHLORIDE 114 mmol/L (98-107); GLUCOSE 134 mg/dL (75-110); PHOSPHORUS 3.8 mg/dL (2.5-4.5); POTASSIUM 4.4 mmol/L (3.6-5.0)
[2018-12-25 07:22] LABS: PLATELET COUNT 89 10^3/uL (150-450)
--- NOTE | 2018-12-25 08:22 | PDOC PROGRESS REPORT ---
Subjective Progress Note for:: 12/25/18 Subjective:: 43 year old male with a past medical history of hypertension and obesity, who presented to the ED sent from urgent care secondary to elevated blood pressure. Patient states that he cut his finger over the left hand a few weeks ago and went back to the urgent care to have it looked at. While he was at the urgent care he was found to have a systolic blood pressure greater than 220 and was told to go to the ER immediately. Patient tells me that this has happened to him in the past when he was in the ED for elevated blood pressure but he was never admitted. Patient also tells me that he was started on medication for hypertension but is not compliant with that and has not been taking it. He denies any symptoms of chest pain, shortness of breath, abdominal pain, nausea or vomiting, dizziness, blurry vision or headaches. He does admit to smoking 1 pack of cigarette per day. He also admits to drinking alcohol daily-his choice alcohol is vodka- 2/5th liquor in a week. States that he also drinks beer on the weekends. He denies use of any illicit drugs. He denies any family history of cancer or LA before the age of 50. [id number] male with history of hypertension obesity came to the emergency room with high blood pressure. He went to the urgent care and found to have systolic blood pressure of more than 220 he was advised to come to the emergency room for further evaluation. He also admitted to drink heavily on daily basis. On examination alert and awake communicating well. 12/23/2018-patient was transferred back to ICU last night because he went into full-blown alcohol withdrawal. He received several doses of Valium and Ativan without much help and he was intubated and transferred to ICU. Presently he is on Ativan 8 mg/min and the deprivan 35 mcg/kg/min the vent settings are SIMV with rate of 14, PEEP of 5 on 40% oxygen and a tidal volume of 500. ABG this morning pH is 1.36/PCO2 43.7/PO2 110 bicarb is 24 this is on 40% oxygen. Patient is still hypotensive this morning started on normal saline at 125 cc/h, and he was started on Levophed this morning. plan is to start him on prophylactic antibiotics. Sutures are requested. 12/24/2018-no acute events in the last 24 hours. Patient is afebrile. Patient is still on mechanical ventilation on 35% oxygen. ABG this morning pH is 7.37 PCO2 38/PO2 115 bicarb is 21.4 with oxygen saturation of 38% it was done on 40% oxygen requested the nurse to decrease the oxygen concentration to 30%. Blood pressure this morning is 114/70 patient is off Levophed. Patient is presently on Ativan 8 mg/min IV and deprivan 40 mcg/kg/min. Plan to decrease the IV fluids from 125 cc to 75 cc/h. 12/25/2018-no acute events in the last 24 hours. Patient is afebrile. On mechanical ventilation with 30% oxygen. The settings are PEEP of 530% oxygen with respiratory rate of 12 tidal volume of 500. ABG done this morning on 30% oxygen pH is 7.35/PCO2 39.6/PO2 82+/bicarb is 21.4. Plan to start the weaning process today. Patient is on Ativan 7 mg/h, propofol 40 mcg/kg/min for s edation. In the last 24 hours input is 5.6 L output is is 3.3 L. Positive balance of 2.2 L. Plan to decrease IV fluids to 30 cc/h today. I reviewed the chest x-ray personally no evidence of pneumonia. Reason For Visit: UNCONTROLLED HTN,ALCOHOL WITHDRAWAL Physical Exam Vital Signs: Temp Pulse Resp BP Pulse Ox 97.5 F 66 16 108/72 97 12/25/18 06:00 12/24/18 18:00 12/24/18 18:00 12/24/18 18:00 12/25/18 04:04 Intake & Output 12/24/18 12/25/18 12/26/18 06:59 06:59 06:59 Intake Total 5599 5836 1356 Output Total 3315 3600 Balance 2284 2236 1356 Weight 112.8 kg 115.1 kg General appearance: PRESENT: no acute distress, other - Still on mechanical ventilation under sedation. Head exam: PRESENT: atraumatic Eye exam: PRESENT: PERRLA Ear exam: PRESENT: normal external ear exam Mouth exam: PRESENT: dry mucosa Neck exam: ABSENT: carotid bruit, JVD, lymphadenopathy, thyromegaly Respiratory exam: PRESENT: clear to auscultation john. ABSENT: rales, rhonchi, wheezes Cardiovascular exam: PRESENT: RRR. ABSENT: diastolic murmur, rubs, systolic murmur Pulses: PRESENT: normal dorsalis pedis pul GI/Abdominal exam: PRESENT: normal bowel sounds, soft, other - NG tube in place a feeding is running.. ABSENT: distended, guarding, mass, organolmegaly, rebound, tenderness Extremities exam: PRESENT: full ROM. ABSENT: calf tenderness, clubbing, pedal edema Neurological exam: PRESENT: other - Patient is intubated under sedation. Pulse are equal and reactive. Results Laboratory Results: 12/25/18 06:09 12/25/18 06:09 12/24/18 12/25/18 12/25/18 09:49 05:12 06:09 WBC 4.7 RBC 3.75 L Hgb 13.8 Hct 40.6 MCV 109 H MCH 36.9 H MCHC 34.0 RDW 14.2 H Plt Count 89 L Seg Neutrophils % 63.3 Lymphocytes % 23.5 Monocytes % 8.0 Eosinophils % 4.2 Basophils % 1.0 Absolute Neutrophils 3.0 Absolute Lymphocytes 1.1 Absolute Monocytes 0.4 Absolute Eosinophils 0.2 Absolute Basophils 0.0 Carbonic Acid 1.19 HCO3/H2CO3 Ratio 17:1 ABG pH 7.35 ABG pCO2 39.6 ABG pO2 82.0 ABG HCO3 21.4 ABG O2 Saturation 95.6 ABG Base Excess -3.8 FiO2 30% Sodium Potassium Chloride Carbon Dioxide Anion Gap BUN Creatinine Est GFR ( Amer) Est GFR (Non-Af Amer) Glucose Lactic Acid 0.9 Calcium Phosphorus Magnesium 12/25/18 06:09 WBC RBC Hgb Hct MCV MCH MCHC RDW Plt Count Seg Neutrophils % Lymphocytes % Monocytes % Eosinophils % Basophils % Absolute Neutrophils Absolute Lymphocytes Absolute Monocytes Absolute Eosinophils Absolute Basophils Carbonic Acid HCO3/H2CO3 Ratio ABG pH ABG pCO2 ABG pO2 ABG HCO3 ABG O2 Saturation ABG Base Excess FiO2 Sodium 140.0 Potassium 4.4 Chloride 114 H Carbon Dioxide 20 L Anion Gap 6 BUN 3 L Creatinine 0.84 Est GFR ( Amer) > 60 Est GFR (Non-Af Amer) > 60 Glucose 134 H Lactic Acid Calcium 8.4 Phosphorus 3.8 Magnesium 2.3 12/21/18 12/21/18 12/21/18 10:35 14:55 20:50 Troponin I < 0.012 < 0.012 0.015 12/22/18 22:25 Troponin I < 0.012 Impressions: Abdomen Ultrasound 12/21/18 00:00 IMPRESSION: FATTY INFILTRATION OF THE LIVER. NO OTHER SIGNIFICANT FINDING IN THE VISUALIZED ABDOMEN. Assessment and Plan - Diagnosis (1) Alcohol abuse Is this a current diagnosis for this admission?: Yes Plan: Advised on cessation. States he will think about it. See plan above for alco hol withdrawal. 12/22/2018-patient has a history of heavy alcohol abuse to watch for the DTs while he was here. Patient was on IV lorazepam and started on IV diazepam also today. Patient is enough stable enough to go to telemetry today. 12/23/2018-patient has history of heavy alcohol abuse and he went into full-blown alcohol withdrawal last night he got large dose of IV Ativan and diazepam withou t much relief he was intubated and transferred to ICU. Presently he is on propofol 35 mcg/kg/min and Ativan 8 mg minute. To start him on NG tube feeding. He was hypotensive started on normal saline at 125 cc/h, and started on Levophed. 12/24/2018-patient is receiving banana bag, on IV Ativan 8 mg/hr and prppofol 40 mcg/kg/min. Is properly sedated now. No acute events in the last 24 hours. Be watching for the DTs. Patient is receiving NG tube feedings. Plan is to decrease the IV fluids to 75 cc/h continue to watch for DTs. Urinary output is 3.3 L. Plan to repeat the labs tomorrow morning. 12/25/2018-patient is presently on IV Ativan 7mg/hr, propofol 40 mcg/kg/min. No acute events in the last 24 hours. Patient is comfortable on the vent. Receiving NG tube feedings. Mother is bedside and discussed the plan for today. watching for the DTs. He is off the pressors and on IV fluids normal saline at 75 cc/h plan is to decrease the fluids to 30 cc/h. (2) Alcohol withdrawal Qualifiers: Complication of substance-induced condition: uncomplicated Qualified Code(s): F10.230 - Alcohol dependence with withdrawal, uncomplicated Is this a current diagnosis for this admission?: Yes Plan: History of alcohol abuse-states he drinks vodka at home daily. Alcohol level elevated at this time. There is concern for alcohol withdrawal since he was a little tremulous and diaphoretic in the ED. we will place him on seizure precautions. Ativan as needed for agitation and seizures. Discussed about alcohol cessation. Will check folate and B12 levels. Start him on folate, thiamine and multivitamins. 12/22/2018-patient is a heavy alcohol user he drinks "quite home on daily basis. Alcohol level was 59 at the time of admission. Patient was anxious and restless and with tremors in the emergency room is also diaphoretic. Aspiration fall seizure precautions are requested. He is on Ativan on as-needed basis. Started on diazepam also. He is receiving banana bag IV. To watch for the DTs. 12/23/2018-patient has history of heavy alcohol use went into alcohol withdrawal last night status post intubation. Recently properly sedated with IV Ativan and deprivan 12/24/2018-patient was a transfer back to ICU from [facility] yesterday for full blown alcohol withdrawal symptoms. He was promptly intubated and placed under sedation. He was also hypotensive started on Levophed blood pressures are improved liver 40s discontinued this morning presently on IV fluids 125 cc/h plan to decrease the fluid to 75 cc/h. Plan is to continue to provide the supportive measures. 12/25/2018-patient is in the ICU for severe alcohol withdrawal symptoms status post intubation he is doing much better weaning parameters started yesterday. Presently on 30% oxygen pulse ox is 98%. On Ativan 7 mg/h and propofol 40 mcg/kg/min. Plan is to continue the present management probably patient can be extubated tomorrow. (3) Hypertensive emergency Is this a current diagnosis for this admission?: Yes Plan: History of hypertension but noncompliant at home as he has not been taking his lisinopril 10 mg daily. He does not have a primary care doctor and only goes to the urgent care for medical issues. In the ED after arrival he received 10 mg lisinopril, Ativan 1 mg, 0.5 mg, clonidine 0.1 mg, labetalol 10 mg IV and metoprolol 5 mg IV and his blood pressure was still elevated. He was noted to be diaphoretic and having tremors and there was concern for alcohol withdrawal since his alcohol level came elevated. Last drink was 7 PM last night. At this time there is concern for withdrawal seizures-we will place him in ICU overnight to keep close observation and start him on a Precedex drip to control his blood pressure better. We will check lipid panel, A1c, TSH, INR/PT, and ammonia level. 12/22/2018-patient is given the history of hypertension but is not on any home medications apparently he stopped taking medications for a while. In the emergency room he received lisinopril 10 mg, clonidine 0.1 mg, labetalol 10 mg IV, metoprolol 5 mg IV. Blood pressure today is 109/69. Controlled. Precedex drip is discontinued today. 12/23/2018-patient came in with very high blood pressures last night become extremely hypertensive systolic blood pressure went up to more than 200, presently he is hypotensive, hypothermic blood cultures are down drawn started on antibiotics started on normal saline 125 cc/h and Levophed. 12/24/2018-patient came in with very high blood pressures at the time of presentation in the emergency room now is hypotensive receiving IV fluids blood pressure was improved and Levophed was discontinued. Hypotension probably secondary to alcohol withdrawal symptoms and poor oral intake. 12/25/2018-patient blood pressure today is 120/60 stable. Not on pressors. Hypotension is resolving. Plan to decrease the IV fluids to 30 cc/h. pt has a fluid balance of 2.2 L yesterday. (4) Hyponatremia Is this a current diagnosis for this admission?: Yes Plan: Unclear but likely secondary to alcohol abuse. He does not seem to be volume overloaded. We will monitor him for now. Consulted on alcohol cessation. 12/22/2018-serum sodium level is 137 today. Patient is not hypervolemic. Hyponatremia probably secondary to alcohol abuse and poor oral intake. 12/23/2018-patient's serum sodium level is 135 hyponatremia due to alcohol related issues and poor oral intake is resolved. 12/24/2018 patient's serum sodium level is 138 hyponatremia is resolved. 12/25/2018-serum sodium level is 140 today. Patient is on tube feedings. Hyponatremia secondary to poor oral intake and heavy alcohol use is resolving. (5) Tobacco abuse Is this a current diagnosis for this admission?: Yes (6) Transaminitis Is this a current diagnosis for this admission?: Yes Plan: 12/23/2018-came in with elevated liver enzymes most likely secondary to alcohol abuse causing hepatic injury. Abdominal ultrasound was done shows fatty liver. 12/24/2018-patient came in with elevated LFTs ultrasound was liver was done shows fatty liver. Transaminitis most likely secondary to fatty liver. 12/25/2018-LFTs are still elevated. Ultrasound of the abdomen indicates fatty liver. Plan to check the labs on daily basis. (7) Hypotension Is this a current diagnosis for this admission?: Yes Plan: 12/23/2018-patient last his blood pressure is 78/54 on normal saline at 120 cc/h, on Levophed. Patient is also hypothermic with a temperature of 96.6 started on IV antibiotic therapy vancomycin and Zosyn blood cultures are requested. Plan is to rule out sepsis. To request for lactic acid levels today. Blood pressure today is 114/70 on normal saline at 125 cc/h hypotension due to full blown alcohol withdrawal symptoms resolved. 12/25/2018-patient's blood pressure today is 120/60 hypotension is resolving plan to decrease the IV fluids to 30 cc/h. On NG tube feedings. Patient is off the pressors. (8) Acute respiratory failure Is this a current diagnosis for this admission?: Yes Plan: 12/25/2018-acute respiratory failure with mechanical intubation most likely secondary to alcohol withdrawal. Initially the chest x-ray indicates possible left lower lobe pneumonia but the chest x-ray from yesterday indicates no acute pathology. ABG this morning on 30% oxygen pH is 7.35/PCO2 39/PO2 82 bicarb is 21.6. Oxygen saturation is 95.6. - Time Time Spent with patient: 15-24 minutes Medications reviewed and adjusted accordingly: Yes Anticipated discharge: Home
[2018-12-25] MEDS: POTASSIUM CHLORIDE 20 MEQ/15 ML UDCUP NG SCH ×2 (08:59→22:14)
[2018-12-25] MEDS: ENOXAPARIN SODIUM INJ 40 MG/0.4 ML DISP.SYRIN SUBCUT SCH (09:00)
[2018-12-25] MEDS: NICOTINE 21 MG/24 HR PATCH.TD24 TD SCH (09:00)
--- NOTE | 2018-12-25 09:06 | RADIOLOGY REPORT (SQ) ---
EXAM DESCRIPTION: CHEST SINGLE VIEW COMPLETED DATE/TIME: 12/25/2018 7:00 am REASON FOR STUDY: INTUBATED COMPARISON: Previous day NUMBER OF VIEWS: One view. TECHNIQUE: Single frontal radiographic image of the chest acquired. LIMITATIONS: None. FINDINGS: LUNGS AND PLEURA: Small pleural effusions are unchanged. No pneumothorax. MEDIASTINUM AND HEART: Stable heart size and mediastinal structures. SUPPORT DEVICES: Appropriate location without change. BONY STRUCTURES: No acute findings. HARDWARE: None. OTHER: No other significant finding. IMPRESSION: STABLE APPEARANCE OF THE CHEST. SUPPORT DEVICES UNCHANGED. Reading location - IP/workstation name: [email or web address]
[2018-12-25] MEDS: NORMAL SALINE 1000 ML 1,000 ML IV PRN (11:49)
[2018-12-25] MEDS: DIAZEPAM INJ 10 MG/2 ML DISP.SYRIN IV PRN (11:50)
[2018-12-25] MEDS: SCOPOLAMINE HYDROBROMIDE 1.5 MG PATCH.TD72 TD SCH (13:07)
[2018-12-25] MEDS: VANCOMYCIN HCL 1,500 MG in DEXTROSE 5%-WATER 250 ML IV SCH ×2 (13:40→22:12)
[2018-12-25] MEDS: NORMAL SALINE 1000 ML 1,000 ML with POTASSIUM CHLORIDE 20 MEQ, MAGNESIUM SULFATE 8 MEQ,... IV SCH ×5 (17:33)
[2018-12-26] MEDS: HYDRALAZINE HCL INJ/PF 20 MG/1 ML SDV IV PRN ×5 (00:22→22:36)
[2018-12-26] MEDS: DIAZEPAM INJ 10 MG/2 ML DISP.SYRIN IV PRN ×3 (00:57→21:22)
[2018-12-26] MEDS: PROPOFOL 1,000 MG/100 ML INFUS..BTL IV PRN ×3 (03:04→11:08)
[2018-12-26] MEDS: PIPERACILLIN SODIUM/TAZOBACTAM 3.375 GM in NORMAL SALINE 100 ML IV SCH ×4 (03:06→20:49)
[2018-12-26] MEDS: LORAZEPAM 24 MG/240 ML BAG IV PRN ×4 (04:03→20:50)
[2018-12-26 04:14] LABS: ARTERIAL BLOOD BASE EXCESS -2.7 mmol/L; ARTERIAL BLOOD H2CO3 1.04 mmol/L (1.05-1.35); ARTERIAL BLOOD HCO3 21.2 mmol/L (20-24); ARTERIAL BLOOD O2 SATURATION 96.7 % (94-98); ARTERIAL BLOOD PCO2 34.5 mmHg (35-45); ARTERIAL BLOOD PH 7.41 (7.35-7.45); ARTERIAL BLOOD PO2 87.1 mmHg (80-100); ARTERIAL BLOOD TOTAL CO2 22.2 mmol/L (23-27)
[2018-12-26 04:16] LABS: ARTERIAL BLOOD FIO2 28%
[2018-12-26 04:37] LABS: ABSOLUTE BASOPHILS # (AUTO) 0.1 10^3/uL (0.0-0.2); ABSOLUTE EOSINOPHILS # (AUTO) 0.3 10^3/uL (0.0-0.6); ABSOLUTE LYMPHOCYTES (AUTO) 1.4 10^3/uL (0.5-4.7); ABSOLUTE MONOCYTES (AUTO) 0.5 10^3/uL (0.1-1.4); BASOPHILS % (AUTO) 1.1 % (0-2); EOSINOPHILS % (AUTO) 4.1 % (0-6); HEMATOCRIT 40.2 % (37.9-51.0); HEMOGLOBIN 13.9 g/dL (13.5-17.0); LYMPHOCYTES % (AUTO) 22.3 % (13-45); MEAN CORPUSCULAR HEMOGLOBIN 36.9 pg (27.0-33.4); MEAN CORPUSCULAR HGB CONC 34.5 g/dL (32.0-36.0); MEAN CORPUSCULAR VOLUME 107 fl (80-97); MONOCYTES % (AUTO) 8.4 % (3-13); RED BLOOD COUNT 3.75 10^6/uL (4.35-5.55); SEGMENTED NEUTROPHILS % (AUTO) 64.1 % (42-78); TOTAL CELLS COUNTED % (AUTO) 100 %; WHITE BLOOD COUNT 6.2 10^3/uL (4.0-10.5)
[2018-12-26 04:54] LABS: ALANINE AMINOTRANSFERASE 244 U/L (21-72); ALBUMIN 3.3 g/dL (3.5-5.0); ALKALINE PHOSPHATASE 81 U/L (38-126); ANION GAP 6 (5-19); ASPARTATE AMINO TRANSFERASE 140 U/L (17-59); BILIRUBIN,DIRECT 0.4 mg/dL (0.0-0.4); BILIRUBIN,TOTAL 0.6 mg/dL (0.2-1.3); BLOOD UREA NITROGEN 3 mg/dL (7-20); CALCIUM 8.8 mg/dL (8.4-10.2); CARBON DIOXIDE 20 mmol/L (22-30); CHLORIDE 116 mmol/L (98-107); GLUCOSE 105 mg/dL (75-110); POTASSIUM 4.2 mmol/L (3.6-5.0); SODIUM 142.4 mmol/L (137-145); TOTAL PROTEIN 5.6 g/dL (6.3-8.2)
[2018-12-26 05:07] LABS: PLATELET COUNT 97 10^3/uL (150-450)
[2018-12-26] MEDS: FAMOTIDINE 20 MG TABLET PO SCH (05:35)
--- NOTE | 2018-12-26 07:45 | RADIOLOGY REPORT (SQ) ---
EXAM DESCRIPTION: XR CHEST 1 VIEW COMPLETED DATE/TME: 12/26/2018 06:00 CLINICAL HISTORY: 43 years Male, resp failure/intubation COMPARISON: One day prior. NUMBER OF VIEWS/TECHNIQUE: 1/AP FINDINGS: Small right basilar opacity-effusion. Linear opacity of the left midlung field.Adequate appearing endotracheal tube. Adequate appearing enteric tube partially obscured. Moderately enlarged cardiac silhouette. No pneumothorax. Stable bony thorax. IMPRESSION: No significant change.
--- NOTE | 2018-12-26 09:08 | PDOC PROGRESS REPORT ---
Subjective Progress Note for:: 12/26/18 Subjective:: 43 year old male with a past medical history of hypertension and obesity, who presented to the ED sent from urgent care secondary to elevated blood pressure. Patient states that he cut his finger over the left hand a few weeks ago and went back to the urgent care to have it looked at. While he was at the urgent care he was found to have a systolic blood pressure greater than 220 and was told to go to the ER immediately. Patient tells me that this has happened to him in the past when he was in the ED for elevated blood pressure but he was never admitted. Patient also tells me that he was started on medication for hypertension but is not compliant with that and has not been taking it. He denies any symptoms of chest pain, shortness of breath, abdominal pain, nausea or vomiting, dizziness, blurry vision or headaches. He does admit to smoking 1 pack of cigarette per day. He also admits to drinking alcohol daily-his choice alcohol is vodka- 2/5th liquor in a week. States that he also drinks beer on the weekends. He denies use of any illicit drugs. He denies any family history of cancer or [place] before the age of 50. 12/22/[id number]-gkwh-old male with history of hypertension obesity came to the emergency room with high blood pressure. He went to the urgent care and found to have systolic blood pressure of more than 220 he was advised to come to the emergency room for further evaluation. He also admitted to drink heavily on daily basis. On examination alert and awake communicating well. 12/23/2018-patient was transferred back to ICU last night because he went into full-blown alcohol withdrawal. He received several doses of Valium and Ativan without much help and he was intubated and transferred to ICU. Presently he is on Ativan 8 mg/min and the deprivan 35 mcg/kg/min the vent settings are SIMV with rate of 14, PEEP of 5 on 40% oxygen and a tidal volume of 500. ABG this morning pH is 1.36/PCO2 43.7/PO2 110 bicarb is 24 this is on 40% oxygen. Patient is still hypotensive this morning started on normal saline at 125 cc/h, and he was started on Levophed this morning. plan is to start him on prophylactic antibiotics. Sutures are requested. 12/24/2018-no acute events in the last 24 hours. Patient is afebrile. Patient is still on mechanical ventilation on 35% oxygen. ABG this morning pH is 7.37 PCO2 38/PO2 115 bicarb is 21.4 with oxygen saturation of 38% it was done on 40% oxygen requested the nurse to decrease the oxygen concentration to 30%. Blood pressure this morning is 114/70 patient is off Levophed. Patient is presently on Ativan 8 mg/min IV and deprivan 40 mcg/kg/min. Plan to decrease the IV fluids from 125 cc to 75 cc/h. 12/25/2018-no acute events in the last 24 hours. Patient is afebrile. On mechanical ventilation with 30% oxygen. The settings are PEEP of 530% oxygen with respiratory rate of 12 tidal volume of 500. ABG done this morning on 30% oxygen pH is 7.35/PCO2 39.6/PO2 82+/bicarb is 21.4. Plan to start the weaning process today. Patient is on Ativan 7 mg/h, propofol 40 mcg/kg/min for s edation. In the last 24 hours input is 5.6 L output is is 3.3 L. Positive balance of 2.2 L. Plan to decrease IV fluids to 30 cc/h today. I reviewed the chest x-ray personally no evidence of pneumonia. 12/26/2018-no acute events in the last 24 hours. Patient is afebrile. On 28% oxygen. Still on Ativan 5 mg/h and propofol 40 mcg/kg/min. Try to wean him off today. Patient is receiving NG tube. Output is good. ABG this morning 28% oxygen pH is 7.41/PCO2 34.5 p.o. at 87 bicarb is 22. She is mom's bedside plan of care explained to her. Reason For Visit: UNCONTROLLED HTN,ALCOHOL WITHDRAWAL Physical Exam Vital Signs: Temp Pulse Resp BP Pulse Ox 97.0 F 62 18 142/96 H 99 12/26/18 08:00 12/26/18 08:00 12/26/18 08:00 12/26/18 08:00 12/26/18 08:00 Intake & Output 12/25/18 12/26/18 12/27/18 06:59 06:59 06:59 Intake Total 5836 4974 240 Output Total 3600 3910 1000 Balance 2236 1064 -760 Weight 115.1 kg 116.3 kg General appearance: PRESENT: well-developed, other - Mechanical ventilation on sedation. Head exam: PRESENT: atraumatic Eye exam: PRESENT: PERRLA Mouth exam: PRESENT: moist, tongue midline Neck exam: ABSENT: carotid bruit, JVD, lymphadenopathy, thyromegaly Respiratory exam: PRESENT: clear to auscultation john. ABSENT: rales, rhonchi, wheezes Cardiovascular exam: PRESENT: RRR. ABSENT: diastolic murmur, rubs, systolic murmur GI/Abdominal exam: PRESENT: normal bowel sounds, soft, other - NGT-tube in place.. ABSENT: distended, guarding, mass, organolmegaly, rebound, tenderness Gentrourinary exam: PRESENT: indwelling catheter Extremities exam: PRESENT: full ROM. ABSENT: calf tenderness, clubbing, pedal edema Neurological exam: PRESENT: other - On mechanical ventilation under sedation. Results Laboratory Results: 12/26/18 03:30 12/26/18 03:30 12/25/18 12/26/18 12/26/18 11:00 03:30 03:30 WBC 6.2 RBC 3.75 L Hgb 13.9 Hct 40.2 MCV 107 H MCH 36.9 H MCHC 34.5 RDW 14.0 Plt Count 97 L Seg Neutrophils % 64.1 Lymphocytes % 22.3 Monocytes % 8.4 Eosinophils % 4.1 Basophils % 1.1 Absolute Neutrophils 4.0 Absolute Lymphocytes 1.4 Absolute Monocytes 0.5 Absolute Eosinophils 0.3 Absolute Basophils 0.1 Carbonic Acid HCO3/H2CO3 Ratio ABG pH ABG pCO2 ABG pO2 ABG HCO3 ABG O2 Saturation ABG Base Excess FiO2 Sodium 142.4 Potassium 4.2 Chloride 116 H Carbon Dioxide 20 L Anion Gap 6 BUN 3 L Creatinine 0.81 Est GFR ( Amer) > 60 Est GFR (Non-Af Amer) > 60 Glucose 105 Lactic Acid 0.9 Calcium 8.8 Magnesium 2.0 Total Bilirubin 0.6 AST 140 H ALT 244 H Alkaline Phosphatase 81 Total Protein 5.6 L Albumin 3.3 L 12/26/18 03:45 WBC RBC Hgb Hct MCV MCH MCHC RDW Plt Count Seg Neutrophils % Lymphocytes % Monocytes % Eosinophils % Basophils % Absolute Neutrophils Absolute Lymphocytes Absolute Monocytes Absolute Eosinophils Absolute Basophils Carbonic Acid 1.04 L HCO3/H2CO3 Ratio 20:1 ABG pH 7.41 ABG pCO2 34.5 L ABG pO2 87.1 ABG HCO3 21.2 ABG O2 Saturation 96.7 ABG Base Excess -2.7 FiO2 28% Sodium Potassium Chloride Carbon Dioxide Anion Gap BUN Creatinine Est GFR ( Amer) Est GFR (Non-Af Amer) Glucose Lactic Acid Calcium Magnesium Total Bilirubin AST ALT Alkaline Phosphatase Total Protein Albumin 12/21/18 12/21/18 12/21/18 10:35 14:55 20:50 Troponin I < 0.012 < 0.012 0.015 12/22/18 22:25 Troponin I < 0.012 Impressions: Abdomen Ultrasound 12/21/18 00:00 IMPRESSION: FATTY INFILTRATION OF THE LIVER. NO OTHER SIGNIFICANT FINDING IN THE VISUALIZED ABDOMEN. Chest X-Ray 12/26/18 06:00 IMPRESSION: No significant change. Assessment and Plan - Diagnosis (1) Acute respiratory failure Is this a current diagnosis for this admission?: Yes Plan: 12/25/2018-acute respiratory failure with mechanical intubation most likely secondary to alcohol withdrawal. Initially the chest x-ray indicates possible left lower lobe pneumonia but the chest x-ray from yesterday indicates no acute pathology. ABG this morning on 30% oxygen pH is 7.35/PCO2 39/PO2 82 bicarb is 21.6. Oxygen saturation is 95.6. 12/26/2018-patient was admitted for acute respiratory failure most likely related to alcohol withdrawal. Chest x-ray shows left lower lobe opacification. Probably aspiration. ABG on 28% oxygen shows pH of 7.41 PCO2 34.5 p.o. T 87 bicarb is 22. Plan is to wean him off from the ventilator today. (2) Alcohol abuse Is this a current diagnosis for this admission?: Yes Plan: Advised on cessation. States he will think about it. See plan above for alcohol withdrawal. 12/22/2018-patient has a history of heavy alcohol abuse to watch for the DTs while he was here. Patient was on IV lorazepam and started on IV diazepam also today. Patient is enough stable enough to go to telemetry today. 12/23/2018-patient has history of heavy alcohol abuse and he went into full-blown alcohol withdrawal last night he got large dose of IV Ativan and diazepam without much relief he was intubated and transferred to ICU. Presently he is on propofol 35 mcg/kg/min and Ativan 8 mg minute. To start him on NG tube feeding. He was hypotensive started on normal saline at 125 cc/h, and started on Levophed. 12/24/2018-patient is receiving banana bag, on IV Ativan 8 mg/hr and prppofol 40 mcg/kg/min. Is properly sedated now. No acute events in the last 24 hours. Be watching for the DTs. Patient is receiving NG tube feedings. Plan is to decrease the IV fluids to 75 cc/h continue to watch for DTs. Urinary output is 3.3 L. Plan to repeat the labs tomorrow morning. 12/25/2018-patient is presently on IV Ativan 7mg/hr, propofol 40 mcg/kg/min. No acute events in the last 24 hours. Patient is comfortable on the vent. Receiving NG tube feedings. Mother is bedside and discussed the plan for today. watching for the DTs. He is off the pressors and on IV fluids normal saline at 75 cc/h plan is to decrease the fluids to 30 cc/h. 12/26/2018-patient is presently on IV Ativan 5 mg/h and propofol 40 mcg/kg/min. No acute events in the last 24 hours. Pulse ox on ventilation on 28% oxygen is 96%. Patient is receiving NG tube feedings urinary output is good. Try to wean him off from the vent today. (3) Alcohol withdrawal Qualifiers: Complication of substance-induced condition: uncomplicated Qualified Code(s): F10.230 - Alcohol dependence with withdrawal, uncomplicated Is this a current diagnosis for this admission?: Yes Plan: History of alcohol abuse-states he drinks vodka at home daily. Alcohol level elevated at this time. There is concern for alcohol withdrawal since he was a little tremulous and diaphoretic in the ED. we will place him on seizure precautions. Ativan as needed for agitation and seizures. Discussed about alcohol cessation. Will check folate and B12 levels. Start him on folate, thiamine and multivitamins. 12/22/2018-patient is a heavy alcohol user he drinks "quite home on daily basis. Alcohol level was 59 at the time of admission. Patient was anxious and restless and with tremors in the emergency room is also diaphoretic. Aspiration fall seizure precautions are requested. He is on Ativan on as-needed basis. Started on diazepam also. He is receiving banana bag IV. To watch for the DTs. 12/23/2018-patient has history of heavy alcohol use went into alcohol withdrawal last night status post intubation. Recently properly sedated with IV Ativan and deprivan 12/24/2018-patient was a transfer back to ICU from [facility] yesterday for full blown alcohol withdrawal symptoms. He was promptly intubated and placed under sedation. He was also hypotensive started on Levophed blood pressures are improved liver 40s discontinued this morning presently on IV fluids 125 cc/h plan to decrease the fluid to 75 cc/h. Plan is to continue to provide the supportive measures. 12/25/2018-patient is in the ICU for severe alcohol withdrawal symptoms status post intubation he is doing much better weaning parameters started yesterday. Presently on 30% oxygen pulse ox is 98%. On Ativan 7 mg/h and propofol 40 mcg/kg/min. Plan is to continue the present management probably patient can be extubated tomorrow. 12/26/2018-patient was admitted to ICU and he was intubated because of the severe alcohol withdrawal symptoms. Presently on sedation with IV Ativan and propofol. Plan is to wean him off the vent if possible today. (4) Hypertensive emergency Is this a current diagnosis for this admission?: Yes Plan: History of hypertension but noncompliant at home as he has not been taking his lisinopril 10 mg daily. He does not have a primary care doctor and only goes to the urgent care for medical issues. In the ED after arrival he received 10 mg lisinopril, Ativan 1 mg, 0.5 mg, clonidine 0.1 mg, labetalol 10 mg IV and met oprolol 5 mg IV and his blood pressure was still elevated. He was noted to be diaphoretic and having tremors and there was concern for alcohol withdrawal since his alcohol level came elevated. Last drink was 7 PM last night. At this time there is concern for withdrawal seizures-we will place him in ICU overnight to keep close observation and start him on a Precedex drip to control his blood pressure better. We will check lipid panel, A1c, TSH, INR/PT, and ammonia level. 12/22/2018-patient is given the history of hypertension but is not on any home medications apparently he stopped taking medications for a while. In the emergency room he received lisinopril 10 mg, clonidine 0.1 mg, labetalol 10 mg IV, metoprolol 5 mg IV. Blood pressure today is 109/69. Controlled. Precedex drip is discontinued today. 12/23/2018-patient came in with very high blood pressures last night become extremely hypertensive systolic blood pressure went up to more than 200, presently he is hypotensive, hypothermic blood cultures are down drawn started on antibiotics started on normal saline 125 cc/h and Levophed. 12/24/2018-patient came in with very high blood pressures at the time of presentation in the emergency room now is hypotensive receiving IV fluids blood pressure was improved and Levophed was discontinued. Hypotension probably secondary to alcohol withdrawal symptoms and poor oral intake. 12/25/2018-patient blood pressure today is 120/60 stable. Not on pressors. Hypotension is resolving. Plan to decrease the IV fluids to 30 cc/h. pt has a fluid balance of 2.2 L yesterday. 12/26/2018-patient blood pressure today is 151/105. PT blood pressure is 142/96. She did is on IV fluids 30 cc/h and receiving NG tube feeds. Plan is to discontinue IV fluids today. (5) Hyponatremia Is this a current diagnosis for this admission?: Yes Plan: Unclear but likely secondary to alcohol abuse. He does not seem to be volume overloaded. We will monitor him for now. Consulted on alcohol cessation. 12/22/2018-serum sodium level is 137 today. Patient is not hypervolemic. Hyponatremia probably secondary to alcohol abuse and poor oral intake. 12/23/2018-patient's serum sodium level is 135 hyponatremia due to alcohol related issues and poor oral intake is resolved. 12/24/2018 patient's serum sodium level is 138 hyponatremia is resolved. 12/25/2018-serum sodium level is 140 today. Patient is on tube feedings. Hyponatremia secondary to poor oral intake and heavy alcohol use is resolving. 12/26/2018-patient's serum sodium level today is 142 hyponatremia resolved. (6) Tobacco abuse Is this a current diagnosis for this admission?: Yes (7) Transaminitis Is this a current diagnosis for this admission?: Yes Plan: 12/23/2018-came in with elevated liver enzymes most likely secondary to alcohol abuse causing hepatic injury. Abdominal ultrasound was done shows fatty liver. 12/24/2018-patient came in with elevated LFTs ultrasound was liver was done shows fatty liver. Transaminitis most likely secondary to fatty liver. 12/25/2018-LFTs are still elevated. Ultrasound of the abdomen indicates fatty liver. Plan to check the labs on daily basis. 12/26/2018-patient came in with elevated LFTs ultrasound of the liver shows fatty liver. (8) Hypotension Is this a current diagnosis for this admission?: Yes Plan: 12/23/2018-patient last his blood pressure is 78/54 on normal saline at 120 cc/h, on Levophed. Patient is also hypothermic with a temperature of 96.6 started on IV antibiotic therapy vancomycin and Zosyn blood cultures are requested. Plan i s to rule out sepsis. To request for lactic acid levels today. Blood pressure today is 114/70 on normal saline at 125 cc/h hypotension due to full blown alcohol withdrawal symptoms resolved. 12/25/2018-patient's blood pressure today is 120/60 hypotension is resolving plan to decrease the IV fluids to 30 cc/h. On NG tube feedings. Patient is off the pressors. 12/26/2018-hypotension due to severe alcohol withdrawal symptoms resolved. Blood pressure stable now. - Time Time Spent with patient: 25-34 minutes Medications reviewed and adjusted accordingly: Yes Anticipated discharge: Home
[2018-12-26] MEDS: NICOTINE 21 MG/24 HR PATCH.TD24 TD SCH (11:02)
[2018-12-26] MEDS: POTASSIUM CHLORIDE 20 MEQ/15 ML UDCUP NG SCH ×2 (11:04→21:05)
[2018-12-26] MEDS: ENOXAPARIN SODIUM INJ 40 MG/0.4 ML DISP.SYRIN SUBCUT SCH (11:04)
--- NOTE | 2018-12-26 11:15 | RADIOLOGY REPORT (SQ) ---
EXAM DESCRIPTION: KUB/ABDOMEN (SINGLE VIEW) COMPLETED DATE/TIME: 12/26/2018 10:47 am REASON FOR STUDY: ileus COMPARISON: Abdominal ultrasound 12/21/2018 AP chest 12/26/2018 NUMBER OF VIEWS: One view. TECHNIQUE: Supine radiographic image of the abdomen acquired. LIMITATIONS: None. FINDINGS: BOWEL GAS PATTERN: Nasogastric tube tip and side port in the stomach. Stomach is decompre ssed. Otherwise unremarkable bowel gas pattern. CALCIFICATIONS: No suspicious calcifications. SOFT TISSUES: No gross mass or suggestion of organomegaly. HARDWARE: Nasogastric tube tip and side port in the stomach. Orr catheter in the bladder BONES: No acute fracture. No worrisome bone lesions. OTHER: No other significant finding. IMPRESSION: Grossly nonobstructive bowel gas pattern TECHNICAL DOCUMENTATION: JOB ID: [id number] [employer]- All Rights Reserved Reading location - IP/workstation name: [email or web address]
[2018-12-26] MEDS ORDERED: DEXMEDETOMIDINE IN 0.9 % NACL 400 MCG/100 ML RTUPB IV ONE (14:10)
[2018-12-26] MEDS ORDERED: ACETAMINOPHEN 325 MG TABLET NG PRN (14:30)
[2018-12-26] MEDS: DEXMEDETOMIDINE IN NS 400 MCG/100 ML RTUPB IV PRN (15:40)
[2018-12-26] MEDS: NORMAL SALINE 1000 ML 1,000 ML with POTASSIUM CHLORIDE 20 MEQ, MAGNESIUM SULFATE 8 MEQ,... IV SCH ×5 (17:29)
[2018-12-26] MEDS: FAMOTIDINE 20 MG TABLET NG SCH (17:34)
[2018-12-26 18:39] LABS: ARTERIAL BLOOD BASE EXCESS -1.9 mmol/L; ARTERIAL BLOOD H2CO3 1.18 mmol/L (1.05-1.35); ARTERIAL BLOOD HCO3 22.8 mmol/L (20-24); ARTERIAL BLOOD O2 SATURATION 97.3 % (94-98); ARTERIAL BLOOD PCO2 39.1 mmHg (35-45); ARTERIAL BLOOD PH 7.38 (7.35-7.45); ARTERIAL BLOOD PO2 96.4 mmHg (80-100)
[2018-12-26 18:45] LABS: ARTERIAL BLOOD FIO2 35%
[2018-12-27] MEDS: DIAZEPAM INJ 10 MG/2 ML DISP.SYRIN IV PRN ×4 (01:33→21:15)
[2018-12-27] MEDS: LORAZEPAM 24 MG/240 ML BAG IV PRN ×5 (01:33→22:00)
[2018-12-27] MEDS ORDERED: MIDAZOLAM 2 MG/2 ML INJ ONE (02:03)
[2018-12-27] MEDS ORDERED: ATROPINE SULFATE INJ 1 MG/1 ML VIAL ONE (02:07)
--- NOTE | 2018-12-27 02:48 | Progress Note ---
Provider Note Provider Note: Date of note:12/27/2018 Critical care note: Subjective: The patient has been restless and agitated despite IV Ativan drip and Seroquel that was resumed tonight. He has been removing his BiPAP mask. He dropped his pulse oximetry to the 70s with elevated blood pressure of 200s over 100s and heart rate in the 120s. He later became cyanotic. Assisted ventilation with bag valve was immediately started. Objective: Physical examination: Generally: Cyanotic and diaphoretic middle-aged obese male in moderate to severe respiratory distress Vital signs-as listed above, temperature was 96.3 earlier Head - atraumatic, normocephalic. Pupils - equal, round and reactive to light and accommodation. No scleral icterus. Oropharynx - moist mucous membranes and tongue. Neck - supple. No JVD. Carotid pulses 2+ bilaterally. Cardiovascular - regular rate and rhythm. Normal S1 and S2. No murmurs, gallops or rubs. Lungs -diffusely coarse breath sounds, slightly diminished on both bases Abdomen - soft and nontender. Positive bowel sounds. No palpable organomegaly or masses. Extremities - no pitting edema, clubbing or cyanosis. Neuro -he was unresponsive and restless. No lateralizing signs Skin -the patient was diaphoretic and cyanotic with central and acrocyanosis and and this resolved after intubation and brief bagging. and rectal exam - deferred. All notes and labs were reviewed. Assessment/plan: Acute respiratory failure status post recent successful extubation yesterday, with associated delirium tremens and aspiration pneumonia in the right base in the left midlung. The patient was given 100 mg of IV succinylcholine and 4 mg of IV Versed then intubated with 7.5 ET tube at 24 cm assisted by glidoscope by our [employer]OR. His pulse oximetry improved from 70s to 94% on 100% FiO2. Currently he is placed on VT of 500 mL, rate of 20, pressure support of 20 and PEEP of 10. Will follow ABG in an hour. Will place on ventilator protocol. We will continue sedation with IV propofol as well as IV Ativan drip. That should improve his hypertensive urgency. We will utilize as needed IV labetalol and if need be IV Cardene drip if his blood pressures not improving. Post intubation stat chest x-ray was ordered and is currently pending. We will review with. We will continue with current plan of care. We will continue to closely monitor him. Critical care time spent so far: 40 minutes.
--- NOTE | 2018-12-27 03:14 | RADIOLOGY REPORT (SQ) ---
CLINICAL HISTORY: intubated COMPARISON: December 26, 2018. TECHNIQUE: XR CHEST 1 VIEW 12/27/2018 12:00 AM CDT FINDINGS: The heart is mildly enlarged. There are developing bilateral perihilar consolidations. There is no pleural effusion. There is no pneumothorax. There are no acute osseous findings. Endotracheal and nasogastric tubes are unchanged. IMPRESSION: Developing bilateral pneumonia versus edema.
[2018-12-27 03:28] LABS: ARTERIAL BLOOD BASE EXCESS -4.2 mmol/L; ARTERIAL BLOOD FIO2 100%; ARTERIAL BLOOD H2CO3 1.34 mmol/L (1.05-1.35); ARTERIAL BLOOD HCO3 22.1 mmol/L (20-24); ARTERIAL BLOOD O2 SATURATION 99.4 % (94-98); ARTERIAL BLOOD PCO2 44.6 mmHg (35-45); ARTERIAL BLOOD PH 7.31 (7.35-7.45); ARTERIAL BLOOD PO2 217.1 mmHg (80-100); ARTERIAL BLOOD TOTAL CO2 23.4 mmol/L (23-27)
[2018-12-27] MEDS: PIPERACILLIN SODIUM/TAZOBACTAM 3.375 GM in NORMAL SALINE 100 ML IV SCH ×4 (03:50→21:15)
[2018-12-27] MEDS: PROPOFOL 1,000 MG/100 ML INFUS..BTL IV PRN ×4 (03:51→22:36)
[2018-12-27] MEDS ORDERED: SUCCINYLCHOLINE CHLORIDE INJ 200 MG/10 ML VIAL IV ONE (04:30)
[2018-12-27] MEDS ORDERED: MIDAZOLAM 2 MG/2 ML INJ IV ONE (04:30)
[2018-12-27] MEDS: FAMOTIDINE 20 MG TABLET NG SCH ×2 (05:46→17:02)
[2018-12-27 06:37] LABS: ARTERIAL BLOOD BASE EXCESS -2.8 mmol/L; ARTERIAL BLOOD HCO3 20.7 mmol/L (20-24); ARTERIAL BLOOD PCO2 33.1 mmHg (35-45); ARTERIAL BLOOD PH 7.41 (7.35-7.45); ARTERIAL BLOOD PO2 72.8 mmHg (80-100); ARTERIAL BLOOD TOTAL CO2 21.7 mmol/L (23-27)
[2018-12-27 06:38] LABS: ARTERIAL BLOOD FIO2 40%
[2018-12-27 07:07] LABS: ABSOLUTE BASOPHILS # (AUTO) 0.1 10^3/uL (0.0-0.2); ABSOLUTE EOSINOPHILS # (AUTO) 0.1 10^3/uL (0.0-0.6); ABSOLUTE LYMPHOCYTES (AUTO) 0.8 10^3/uL (0.5-4.7); ABSOLUTE MONOCYTES (AUTO) 0.9 10^3/uL (0.1-1.4); ABSOLUTE NEUT (AUTO) 5.6 10^3/uL (1.7-8.2); BASOPHILS % (AUTO) 0.9 % (0-2); HEMATOCRIT 45.7 % (37.9-51.0); HEMOGLOBIN 15.5 g/dL (13.5-17.0); LYMPHOCYTES % (AUTO) 10.9 % (13-45); MEAN CORPUSCULAR HEMOGLOBIN 36.4 pg (27.0-33.4); MEAN CORPUSCULAR HGB CONC 33.9 g/dL (32.0-36.0); MEAN CORPUSCULAR VOLUME 107 fl (80-97); PLATELET COUNT 153 10^3/uL (150-450); RED BLOOD COUNT 4.26 10^6/uL (4.35-5.55); RED CELL DISTRIBUTION WIDTH 14.2 % (11.5-14.0); SEGMENTED NEUTROPHILS % (AUTO) 75.2 % (42-78); TOTAL CELLS COUNTED % (AUTO) 100 %; WHITE BLOOD COUNT 7.5 10^3/uL (4.0-10.5)
[2018-12-27 07:50] LABS: ALANINE AMINOTRANSFERASE 194 U/L (21-72); ALBUMIN 3.6 g/dL (3.5-5.0); ALKALINE PHOSPHATASE 103 U/L (38-126); ANION GAP 8 (5-19); ASPARTATE AMINO TRANSFERASE 101 U/L (17-59); BILIRUBIN,DIRECT 0.5 mg/dL (0.0-0.4); BILIRUBIN,TOTAL 0.9 mg/dL (0.2-1.3); BLOOD UREA NITROGEN 5 mg/dL (7-20); CALCIUM 8.9 mg/dL (8.4-10.2); CARBON DIOXIDE 24 mmol/L (22-30); CHLORIDE 111 mmol/L (98-107); GLUCOSE 141 mg/dL (75-110); TOTAL PROTEIN 6.6 g/dL (6.3-8.2)
[2018-12-27] MEDS ORDERED: SUCCINYLCHOLINE CHLORIDE INJ 200 MG/10 ML VIAL ONE (10:14)
[2018-12-27] MEDS: NICOTINE 21 MG/24 HR PATCH.TD24 TD SCH (10:14)
[2018-12-27] MEDS: POTASSIUM CHLORIDE 20 MEQ/15 ML UDCUP NG SCH ×2 (10:15→21:16)
[2018-12-27] MEDS: NORMAL SALINE 1000 ML 1,000 ML IV PRN (10:16)
[2018-12-27] MEDS: ENOXAPARIN SODIUM INJ 40 MG/0.4 ML DISP.SYRIN SUBCUT SCH (10:16)
--- NOTE | 2018-12-27 13:42 | PDOC PROGRESS REPORT ---
Subjective Progress Note for:: 12/27/18 Subjective:: This is a 43 year old male with a past medical history of hypertension, alcohol abuse and obesity, who presented to the ED sent from urgent care secondary to elevated blood pressure in the 220/100s. He was initially admitted for hypertensive urgency. He went into severe alcohol withdrawal and developed severe agitation not controlled with Valium and Ativan and was subsequently intubated on 12/23/18. He was extubated yesterday 12/26/18. Last night, patient became agitated, short of breath and hypoxic in the 70s and was reintubated. Chest x-ray shows new bilateral infiltrates. This morning, he is currently well sedated and saturating well on minimal vent settings. RN reports thick creamy secretions from the ET. Reason For Visit: UNCONTROLLED HTN,ALCOHOL WITHDRAWAL Physical Exam Vital Signs: Temp Pulse Resp BP Pulse Ox 99.5 F 68 20 103/70 100 12/27/18 12:00 12/27/18 12:00 12/27/18 12:00 12/27/18 12:00 12/27/18 12:56 Intake & Output 12/26/18 12/27/18 12/28/18 06:59 06:59 06:59 Intake Total 5997 1802 1431 Output Total 3910 6145 325 Balance 2087 -4343 1106 Weight 256 lb 6.362 oz 246 lb 4.101 oz General appearance: PRESENT: no acute distress, well-developed, well-nourished, other - intubated, sedated Head exam: PRESENT: atraumatic, normocephalic Eye exam: PRESENT: conjunctiva pink, EOMI, PERRLA. ABSENT: scleral icterus Ear exam: PRESENT: normal external ear exam Mouth exam: PRESENT: moist, tongue midline Neck exam: ABSENT: carotid bruit, JVD, lymphadenopathy, thyromegaly Respiratory exam: PRESENT: clear to auscultation john. ABSENT: rales, rhonchi, wheezes Cardiovascular exam: PRESENT: RRR. ABSENT: diastolic murmur, rubs, systolic murmur Pulses: PRESENT: normal dorsalis pedis pul GI/Abdominal exam: PRESENT: normal bowel sounds, soft. ABSENT: distended, gu arding, mass, organolmegaly, rebound, tenderness Rectal exam: PRESENT: deferred Neurological exam: PRESENT: CN II-XII grossly intact - intubated, sedated. ABSENT: motor sensory deficit Results Laboratory Results: 12/27/18 06:45 12/27/18 06:45 12/26/18 12/27/18 12/27/18 17:18 03:15 06:30 WBC RBC Hgb Hct MCV MCH MCHC RDW Plt Count Seg Neutrophils % Lymphocytes % Monocytes % Eosinophils % Basophils % Absolute Neutrophils Absolute Lymphocytes Absolute Monocytes Absolute Eosinophils Absolute Basophils Carbonic Acid 1.18 1.34 1.00 L HCO3/H2CO3 Ratio 19:1 16:1 20:1 ABG pH 7.38 7.31 L 7.41 ABG pCO2 39.1 44.6 33.1 L ABG pO2 96.4 217.1 H 72.8 L ABG HCO3 22.8 22.1 20.7 ABG O2 Saturation 97.3 99.4 H 95.0 ABG Base Excess -1.9 -4.2 -2.8 FiO2 35% 100% 40% Sodium Potassium Chloride Carbon Dioxide Anion Gap BUN Creatinine Est GFR ( Amer) Est GFR (Non-Af Amer) Glucose Calcium Magnesium Total Bilirubin AST ALT Alkaline Phosphatase Total Protein Albumin 12/27/18 12/27/18 06:45 06:45 WBC 7.5 RBC 4.26 L Hgb 15.5 Hct 45.7 MCV 107 H MCH 36.4 H MCHC 33.9 RDW 14.2 H Plt Count 153 Seg Neutrophils % 75.2 Lymphocytes % 10.9 L Monocytes % 12.0 Eosinophils % 1.0 Basophils % 0.9 Absolute Neutrophils 5.6 Absolute Lymphocytes 0.8 Absolute Monocytes 0.9 Absolute Eosinophils 0.1 Absolute Basophils 0.1 Carbonic Acid HCO3/H2CO3 Ratio ABG pH ABG pCO2 ABG pO2 ABG HCO3 ABG O2 Saturation ABG Base Excess FiO2 Sodium 143.0 Potassium 4.0 Chloride 111 H Carbon Dioxide 24 Anion Gap 8 BUN 5 L Creatinine 0.88 Est GFR ( Amer) > 60 Est GFR (Non-Af Amer) > 60 Glucose 141 H Calcium 8.9 Magnesium 1.9 Total Bilirubin 0.9 AST 101 H ALT 194 H Alkaline Phosphatase 103 Total Protein 6.6 Albumin 3.6 12/21/18 12/21/18 12/21/18 10:35 14:55 20:50 Troponin I < 0.012 < 0.012 0.015 12/22/18 22:25 Troponin I < 0.012 Impressions: Abdomen Ultrasound 12/21/18 00:00 IMPRESSION: FATTY INFILTRATION OF THE LIVER. NO OTHER SIGNIFICANT FINDING IN THE VISUALIZED ABDOMEN. KUB X-Ray 12/26/18 00:00 IMPRESSION: Grossly nonobstructive bowel gas pattern Chest X-Ray 12/27/18 00:00 IMPRESSION: Developing bilateral pneumonia versus edema. Assessment and Plan - Diagnosis (1) Acute respiratory failure with hypoxia Is this a current diagnosis for this admission?: Yes Plan: Secondary to pneumonia and alcohol withdrawal contributing. Currently intubated on minimal vent settings. (2) Alcohol withdrawal Qualifiers: Complication of substance-induced condition: uncomplicated Qualified Code(s): F10.230 - Alcohol dependence with withdrawal, uncomplicated Is this a current diagnosis for this admission?: Yes Plan: He went into severe alcohol withdrawal and developed severe agitation not controlled with Valium and Ativan and was subsequently intubated on 12/23/18. He was extubated yesterday 12/26/18. He was reintubated last night. Patient is a heavy alcohol drinker and may not be over the withdrawal phase yet. Continue Ativan and propofol drips for now. (3) Aspiration pneumonia Is this a current diagnosis for this admission?: Yes Plan: Recent chest x-ray shows new bilateral infiltrates. He will be treated for a likely aspiration pneumonia. He has been started on Zosyn. Will continue the same antibiotic for now. Will also send for a sputum culture. - Time Time Spent with patient: 35 or more minutes
--- NOTE | 2018-12-27 15:06 | RADIOLOGY REPORT (SQ) ---
EXAM DESCRIPTION: CT CHEST WITHOUT COMPLETED DATE/TIME: 12/27/2018 2:05 pm REASON FOR STUDY: hypoxia COMPARISON: Chest x-ray 12/27/2018 TECHNIQUE: CT scan performed of the chest without intravenous contrast. Images reviewed with lung, soft tissue and bone windows. Reconstructed coronal and sagittal MPR images reviewed. All images st ored on PACS. All CT scanners at this facility use dose modulation, iterative reconstruction, and/or weight based d osing when appropriate to reduce radiation dose to as low as reasonably achievable (ALARA). [facility]: Dose Right [facility]: CareDose [facility]: Dose Right [facility]: Teradose 4D [facility]: Smart [employer] RADIATION DOSE: CT Rad equipment meets quality standard of care and radiation dose reduction techniq ues were employed. CTDIvol: 18.8 mGy. DLP: 683 mGy-cm. mGy. LIMITATIONS: No technical limitations. FINDINGS: LUNGS AND PLEURA: Areas of opacification in the right middle lobe and right lower lobe and left upper lobe and left lower lobe. A minimal pleural effusion on the right. HILAR AND MEDIASTINAL STRUCTURES: No identified masses or abnormal nodes. No obvious aneurysm. HEART AND VASCULAR STRUCTURES: No aneurysm. No pericardial effusion. UPPER ABDOMEN: No significant findings. Limited exam. THYROID AND OTHER SOFT TISSUES: No masses. No adenopathy. BONES: No significant finding. HARDWARE: Endotracheal tube. NG tube. OTHER: No other significant findings. IMPRESSION: Multicentric pneumonia. TECHNICAL DOCUMENTATION: JOB ID: [id number] Quality ID # [id number]: Final reports with documentation of one or more dose reduction techniques (e.g., Au tomated exposure control, adjustment of the mA and/or kV according to patient size, use of iterative reconstruction technique) 2010 [employer]- All Rights Reserved Reading location - IP/workstation name: [email or web address]
--- NOTE | 2018-12-27 15:09 | RADIOLOGY REPORT (SQ) ---
EXAM DESCRIPTION: CHEST SINGLE VIEW COMPLETED DATE/TIME: 12/27/2018 2:57 pm REASON FOR STUDY: ET and NG Tube Placement COMPARISON: AP chest 12/27/2018, 242 hours EXAM PARAMETERS: NUMBER OF VIEWS: One view. TECHNIQUE: Single frontal radiographic view of the chest acquired. RADIATION DOSE: NA LIMITATIONS: None. FINDINGS: LUNGS AND PLEURA: Slight decrease in the pulmonary edema pattern perihilar regions compare d to films from 242 hours today. No pneumothorax. No pleural effusions. MEDIASTINUM AND HILAR STRUCTURES: No masses. Contour normal. HEART AND VASCULAR STRUCTURES: No cardiomegaly BONES: No acute findings. HARDWARE: Endotracheal tube tip 6 cm above the ammy. Nasogastric tube tip and side port in the sto mach. No central venous catheter OTHER: No other significant finding. IMPRESSION: Decrease in perihilar pulmonary edema since 242 hours today. Endotracheal tube, nasogastric tube in good positioning TECHNICAL DOCUMENTATION: JOB ID: [id number] [employer]- All Rights Reserved Reading location - IP/workstation name: [email or web address]
--- NOTE | 2018-12-27 15:11 | RADIOLOGY REPORT (SQ) ---
EXAM DESCRIPTION: KUB/ABDOMEN (SINGLE VIEW) COMPLETED DATE/TIME: 12/27/2018 2:57 pm REASON FOR STUDY: NG Tube Placement COMPARISON: KUB 12/26/2018 NUMBER OF VIEWS: One view. TECHNIQUE: Supine radiographic image of the abdomen acquired for nasogastric tube placement. LIMITATIONS: None. FINDINGS: Abdominal film centered over the left upper quadrant demonstrates that the nasogastric tub e tip and side port are in the stomach. Stomach is decompressed. Left lung base clear. IMPRESSION: Nasogastric tube tip and side port in the stomach TECHNICAL DOCUMENTATION: JOB ID: [id number] [employer] All Rights Reserved Reading location - IP/workstation name: [email or web address]
[2018-12-27] MEDS: NORMAL SALINE 1000 ML 1,000 ML with POTASSIUM CHLORIDE 20 MEQ, MAGNESIUM SULFATE 8 MEQ,... IV SCH ×5 (17:01)
[2018-12-27] MEDS: AZITHROMYCIN 250 MG TABLET PO SCH (17:24)
[2018-12-28] MEDS: HYDRALAZINE HCL INJ/PF 20 MG/1 ML SDV IV PRN ×2 (00:52→20:02)
[2018-12-28] MEDS: PROPOFOL 1,000 MG/100 ML INFUS..BTL IV PRN ×7 (02:49→22:27)
[2018-12-28] MEDS: NORMAL SALINE 1000 ML 1,000 ML IV PRN (02:49)
[2018-12-28] MEDS: PIPERACILLIN SODIUM/TAZOBACTAM 3.375 GM in NORMAL SALINE 100 ML IV SCH ×4 (02:50→20:04)
[2018-12-28 04:58] LABS: ARTERIAL BLOOD BASE EXCESS -1.2 mmol/L; ARTERIAL BLOOD H2CO3 1.06 mmol/L (1.05-1.35); ARTERIAL BLOOD HCO3 22.6 mmol/L (20-24); ARTERIAL BLOOD O2 SATURATION 96.7 % (94-98); ARTERIAL BLOOD PCO2 35.2 mmHg (35-45); ARTERIAL BLOOD PH 7.43 (7.35-7.45); ARTERIAL BLOOD PO2 85.5 mmHg (80-100); ARTERIAL BLOOD TOTAL CO2 23.7 mmol/L (23-27)
[2018-12-28 04:59] LABS: ARTERIAL BLOOD FIO2 40%
[2018-12-28] MEDS: LORAZEPAM 24 MG/240 ML BAG IV PRN ×5 (05:20→22:28)
[2018-12-28] MEDS: FAMOTIDINE 20 MG TABLET NG SCH ×2 (05:25→17:13)
[2018-12-28] MEDS: SCOPOLAMINE HYDROBROMIDE 1.5 MG PATCH.TD72 TD SCH (09:46)
[2018-12-28] MEDS: NICOTINE 21 MG/24 HR PATCH.TD24 TD SCH (09:46)
[2018-12-28] MEDS: AZITHROMYCIN 250 MG TABLET PO SCH (09:46)
[2018-12-28] MEDS: ENOXAPARIN SODIUM INJ 40 MG/0.4 ML DISP.SYRIN SUBCUT SCH (09:47)
[2018-12-28] MEDS: POTASSIUM CHLORIDE 20 MEQ/15 ML UDCUP NG SCH ×2 (09:47→21:17)
--- NOTE | 2018-12-28 10:10 | RADIOLOGY REPORT (SQ) ---
EXAM DESCRIPTION: CHEST SINGLE VIEW COMPLETED DATE/TIME: 12/28/2018 9:46 am REASON FOR STUDY: resp failure COMPARISON: 12/27/2018 EXAM PARAMETERS: NUMBER OF VIEWS: One view. TECHNIQUE: Single frontal radiographic view of the chest acquired. RADIATION DOSE: NA LIMITATIONS: None. FINDINGS: LUNGS AND PLEURA: Increased right basilar opacity likely atelectasis. No large effusion. No pneumothorax. MEDIASTINUM AND HILAR STRUCTURES: Linear a past along the right heart border likely atelectasis. Oth erwise, stable HEART AND VASCULAR STRUCTURES: Normal heart size. BONES: No acute findings. HARDWARE: Endotracheal tube tip overlies midthoracic trachea. Enteric tube tip below diaphragm but e xcluded by collimation. OTHER: No other significant finding. IMPRESSION: Increased right basilar opacity likely atelectasis. Stable endotracheal tube with tip overlie midthoracic trachea. TECHNICAL DOCUMENTATION: JOB ID: [id number] [employer]- All Rights Reserved Reading location - IP/workstation name: [email or web address]
--- NOTE | 2018-12-28 14:40 | PDOC PROGRESS REPORT ---
Subjective Progress Note for:: 12/28/18 Subjective:: This is a 43 year old male with a past medical history of hypertension, alcohol abuse and obesity, who presented to the ED sent from urgent care secondary to elevated blood pressure in the 220/100s. He was initially admitted for hypertensive urgency. He went into severe alcohol withdrawal and developed severe agitation not controlled with Valium and Ativan and was subsequently intubated on 12/23/18. 12/27: He was extubated yesterday 12/26/18. Last night, patient became agitated, short of breath and hypoxic in the 70s and was reintubated. Chest x-ray shows new bilateral infiltrates. This morning, he is currently well sedated and saturating well on minimal vent settings. RN reports thick creamy secretions from the ET. 12/28: No acute event overnight. He is doing well on minimal vent settings. He still gets very agitated on attempts to wean down on sedation. Reason For Visit: UNCONTROLLED HTN,ALCOHOL WITHDRAWAL Physical Exam Vital Signs: Temp Pulse Resp BP Pulse Ox 98.8 F 62 11 L 109/71 99 12/28/18 12:00 12/28/18 14:00 12/28/18 14:00 12/28/18 14:00 12/28/18 14:10 Intake & Output 12/27/18 12/28/18 12/29/18 06:59 06:59 06:59 Intake Total 1802 3178 1683 Output Total 6145 1080 410 Balance -4343 2098 1273 Weight 246 lb 4.101 oz 250 lb 3.594 oz General appearance: PRESENT: well-developed, other - intubated, sedated Head exam: PRESENT: atraumatic, normocephalic Eye exam: PRESENT: conjunctiva pink, EOMI, PERRLA. ABSENT: scleral icterus Ear exam: PRESENT: normal external ear exam Mouth exam: PRESENT: moist, tongue midline Neck exam: ABSENT: carotid bruit, JVD, lymphadenopathy, thyromegaly Respiratory exam: PRESENT: rales, rhonchi. ABSENT: wheezes Cardiovascular exam: PRESENT: RRR. ABSENT: diastolic murmur, rubs, systolic murmur Pulses: PRESENT: normal dorsalis pedis pul GI/Abdominal exam: PRESENT: normal bowel sounds, soft. ABSENT: distended, guarding, mass, organolmegaly, rebound, tenderness Rectal exam: PRESENT: deferred Neurological exam: ABSENT: motor sensory deficit - intubated, sedated Results Laboratory Results: 12/27/18 06:45 12/27/18 06:45 12/28/18 04:35 Carbonic Acid 1.06 HCO3/H2CO3 Ratio 21:1 ABG pH 7.43 ABG pCO2 35.2 ABG pO2 85.5 ABG HCO3 22.6 ABG O2 Saturation 96.7 ABG Base Excess -1.2 FiO2 40% 12/23/18 08:23 Blood Blood Culture - Final NO GROWTH IN 5 DAYS 12/23/18 08:30 Blood Blood Culture - Final NO GROWTH IN 5 DAYS 12/21/18 12/21/18 12/21/18 10:35 14:55 20:50 Troponin I < 0.012 < 0.012 0.015 12/22/18 22:25 Troponin I < 0.012 Impressions: Abdomen Ultrasound 12/21/18 00:00 IMPRESSION: FATTY INFILTRATION OF THE LIVER. NO OTHER SIGNIFICANT FINDING IN THE VISUALIZED ABDOMEN. Chest CT 12/27/18 11:04 IMPRESSION: Multicentric pneumonia. KUB X-Ray 12/27/18 14:44 IMPRESSION: Nasogastric tube tip and side port in the stomach Chest X-Ray 12/28/18 00:00 IMPRESSION: Increased right basilar opacity likely atelectasis. Stable endotracheal tube with tip overlie midthoracic trachea. Assessment and Plan - Diagnosis (1) Acute respiratory failure with hypoxia Is this a current diagnosis for this admission?: Yes Plan: Secondary to pneumonia and alcohol withdrawal contributing. Currently intubated on minimal vent settings. 12/28: He is doing well on minimal vent settings. He still gets very agitated on attempts to wean down on sedation. (2) Alcohol withdrawal Qualifiers: Complication of substance-induced condition: uncomplicated Qualified Code(s): F10.230 - Alcohol dependence with withdrawal, uncomplicated Is this a current diagnosis for this admission?: Yes Plan: He went into severe alcohol withdrawal and developed severe agitation not controlled with Valium and Ativan and was subsequently intubated on 12/23/18. He was extubated yesterday 12/26/18. He was reintubated last night. Patient is a heavy alcohol drinker and may not be over the withdrawal phase yet. Continue Ativan and propofol drips for now. 4/10: He is doing well on minimal vent settings. He still gets very agitated on attempts to wean down on sedation. (3) Aspiration pneumonia Is this a current diagnosis for this admission?: Yes Plan: Recent chest x-ray shows new bilateral infiltrates. He will be treated for a likely aspiration pneumonia. He has been started on Zosyn. Will continue the same antibiotic for now. Will also send for a sputum culture. 12/28: Chest CT shows multifocal pneumonia. Continue Zosyn. Sputum culture pending. - Time Time Spent with patient: 25-34 minutes
[2018-12-28] MEDS: METOCLOPRAMIDE HCL INJ/PF 10 MG/2 ML SDV IV SCH ×2 (15:19→21:17)
--- NOTE | 2018-12-28 16:16 | XCELERA REPORT ---
[address] [address] Upper Extremity Venous Evaluation Name: IBRAHIMA UGARTE Age: 43 yrs Gender: Male : 1975 Patient Status: Inpatient Patient Location: ICU^[id number] Study Date: 12/28/2018 01:41 PM Procedure: Unilateral duplex scan of the right upper extremity veins was performed, including responses to compression and other maneuvers. Reason For Study: Right upper extremity swelling Ordering Physician: SARAH RIOJAS Performed By: Susan Diggs Right Side Venous Evaluation Normal vessel filling wall to wall, compression and augmentation as well as Colour flow down to the forearm veins. Interpretation Summary Normal compression, patency, spontaneous and phasic flow of the right upper extremity veins. : SARAH RIOJAS > Agustín Moreno
[2018-12-28] MEDS: NORMAL SALINE 1000 ML 1,000 ML with POTASSIUM CHLORIDE 20 MEQ, MAGNESIUM SULFATE 8 MEQ,... IV SCH ×5 (17:11)
[2018-12-28] MEDS: DIAZEPAM INJ 10 MG/2 ML DISP.SYRIN IV PRN (20:47)
[2018-12-29] MEDS: PROPOFOL 1,000 MG/100 ML INFUS..BTL IV PRN ×6 (01:31→20:18)
[2018-12-29] MEDS: DIAZEPAM INJ 10 MG/2 ML DISP.SYRIN IV PRN ×2 (01:32→09:28)
[2018-12-29] MEDS: PIPERACILLIN SODIUM/TAZOBACTAM 3.375 GM in NORMAL SALINE 100 ML IV SCH ×4 (02:01→20:17)
[2018-12-29] MEDS: HYDRALAZINE HCL INJ/PF 20 MG/1 ML SDV IV PRN ×2 (02:01→09:33)
[2018-12-29] MEDS: NORMAL SALINE 1000 ML 1,000 ML IV PRN (02:02)
[2018-12-29] MEDS: LORAZEPAM 24 MG/240 ML BAG IV PRN ×4 (03:20→20:17)
[2018-12-29 04:12] LABS: HEMATOCRIT 42.3 % (37.9-51.0); HEMOGLOBIN 14.4 g/dL (13.5-17.0); MEAN CORPUSCULAR HGB CONC 34.1 g/dL (32.0-36.0); MEAN CORPUSCULAR VOLUME 106 fl (80-97); PLATELET COUNT 209 10^3/uL (150-450); RED CELL DISTRIBUTION WIDTH 13.9 % (11.5-14.0); WHITE BLOOD COUNT 6.8 10^3/uL (4.0-10.5)
[2018-12-29 04:24] LABS: ARTERIAL BLOOD BASE EXCESS -0.8 mmol/L; ARTERIAL BLOOD H2CO3 1.04 mmol/L (1.05-1.35); ARTERIAL BLOOD HCO3 22.7 mmol/L (20-24); ARTERIAL BLOOD O2 SATURATION 97.3 % (94-98); ARTERIAL BLOOD PCO2 34.7 mmHg (35-45); ARTERIAL BLOOD PH 7.43 (7.35-7.45); ARTERIAL BLOOD PO2 91.5 mmHg (80-100); ARTERIAL BLOOD TOTAL CO2 23.8 mmol/L (23-27)
[2018-12-29 04:25] LABS: ARTERIAL BLOOD FIO2 40%
[2018-12-29 04:30] LABS: ANION GAP 5 (5-19); BLOOD UREA NITROGEN 5 mg/dL (7-20); CALCIUM 9.1 mg/dL (8.4-10.2); CARBON DIOXIDE 21 mmol/L (22-30); CHLORIDE 116 mmol/L (98-107); GLUCOSE 109 mg/dL (75-110); PHOSPHORUS 3.4 mg/dL (2.5-4.5); POTASSIUM 4.1 mmol/L (3.6-5.0); SODIUM 141.9 mmol/L (137-145)
[2018-12-29 04:42] LABS: ABSOLUTE LYMPHOCYTES# (MANUAL) 1.6 10^3/uL (0.5-4.7); ABSOLUTE MONOCYTES # (MANUAL) 0.9 10^3/uL (0.1-1.4); ABSOLUTE NEUTROPHILS# (MANUAL) 3.9 10^3/uL (1.7-8.2); BAND NEUTROPHILS % (MANUAL) 2 % (3-5); BASOPHILS % (MANUAL) 1 % (0-2); EOSINOPHILS % (MANUAL) 4 % (0-6); LYMPHOCYTES % (MANUAL) 23 % (13-45); MONOCYTES % (MANUAL) 13 % (3-13); SEGMENTED NEUTROPHILS % (MAN) 56 % (42-78); TOTAL CELLS COUNTED 100
[2018-12-29 04:43] LABS: HYPOCHROMASIA SLIGHT; PLATELET COMMENT ADEQUATE; POIKILOCYTOSIS 1+; POLYCHROMASIA 1+; STOMATOCYTES 1+
[2018-12-29] MEDS: FAMOTIDINE 20 MG TABLET NG SCH ×2 (05:05→17:07)
[2018-12-29] MEDS: METOCLOPRAMIDE HCL INJ/PF 10 MG/2 ML SDV IV SCH ×3 (05:05→21:21)
--- NOTE | 2018-12-29 07:34 | RADIOLOGY REPORT (SQ) ---
EXAM DESCRIPTION: XR CHEST 1 VIEW COMPLETED DATE/TME: 12/29/2018 06:00 CLINICAL HISTORY: 43 years Male, pna/resp failure COMPARISON: One day prior, report only. NUMBER OF VIEWS/TECHNIQUE: 1/AP FINDINGS: Small streakiness patchy opacity of the right lung base. Adequate appearing endotracheal tube. Adequate appearing enteric tube partially obscured. Normal cardiac silhouette size. No pneumothorax. Stable bony thorax. IMPRESSION: No significant change.
[2018-12-29] MEDS: AZITHROMYCIN 250 MG TABLET PO SCH (09:21)
[2018-12-29] MEDS: NICOTINE 21 MG/24 HR PATCH.TD24 TD SCH (09:22)
[2018-12-29] MEDS: POTASSIUM CHLORIDE 20 MEQ/15 ML UDCUP NG SCH (09:22)
[2018-12-29] MEDS: ENOXAPARIN SODIUM INJ 40 MG/0.4 ML DISP.SYRIN SUBCUT SCH (09:22)
[2018-12-29] MEDS: THIAMINE HCL 100 MG TABLET NG SCH (14:15)
--- NOTE | 2018-12-29 14:51 | PDOC PROGRESS REPORT ---
Subjective Progress Note for:: 12/29/18 Subjective:: This is a 43 year old male with a past medical history of hypertension, alcohol abuse and obesity, who presented to the ED sent from urgent care secondary to elevated blood pressure in the 220/100s. He was initially admitted for hypertensive urgency. He went into severe alcohol withdrawal and developed severe agitation not controlled with Valium and Ativan and was subsequently intubated on 12/23/18. 12/27: He was extubated yesterday 12/26/18. Last night, patient became agitated, short of breath and hypoxic in the 70s and was reintubated. Chest x-ray shows new bilateral infiltrates. This morning, he is currently well sedated and saturating well on minimal vent settings. RN reports thick creamy secretions from the ET. 12/28: He is doing well on minimal vent settings. He still gets very agitated on attempts to wean down on sedation. 12/29: No acute event overnight. He does well on weaning trials but still gets agitated. Anticipating he will be needing mechanical vent support in the next 2 days prior to reattempting extubation to ensure he is over the alcohol withdrawal phase. Will continue on daily weaning trials. Reason For Visit: UNCONTROLLED HTN,ALCOHOL WITHDRAWAL Physical Exam Vital Signs: Temp Pulse Resp BP Pulse Ox 99.3 F 101 H 20 124/81 97 12/29/18 14:25 12/29/18 10:00 12/29/18 14:25 12/29/18 14:25 12/29/18 14:25 Intake & Output 12/28/18 12/29/18 12/30/18 06:59 06:59 06:59 Intake Total 3178 3900 1540 Output Total 1080 3145 620 Balance 2098 755 920 Weight 250 lb 3.594 oz 253 lb 12.033 oz General appearance: PRESENT: well-developed, other - intubated, sedated Eye exam: PRESENT: conjunctiva pink, EOMI, PERRLA. ABSENT: scleral icterus Ear exam: PRESENT: normal external ear exam Mouth exam: PRESENT: moist, tongue midline Neck exam: ABSENT: carotid bruit, JVD, lymphadenopathy, thyromegaly Respiratory exam: PRESENT: rales, rhonchi. ABSENT: wheezes Cardiovascular exam: PRESENT: RRR. ABSENT: diastolic murmur, rubs, systolic murmur Pulses: PRESENT: normal dorsalis pedis pul GI/Abdominal exam: PRESENT: normal bowel sounds, soft. ABSENT: distended, guarding, mass, organolmegaly, rebound, tenderness Rectal exam: PRESENT: deferred Extremities exam: PRESENT: full ROM. ABSENT: calf tenderness, clubbing, pedal edema Neurological exam: PRESENT: CN II-XII grossly intact, other - intubated, sedated. ABSENT: motor sensory deficit Results Laboratory Results: 12/29/18 03:37 12/29/18 03:37 12/29/18 12/29/18 12/29/18 03:37 03:37 03:50 WBC 6.8 RBC 4.00 L Hgb 14.4 Hct 42.3 MCV 106 H MCH 36.0 H MCHC 34.1 RDW 13.9 Plt Count 209 Seg Neutrophils % Not Reportable Lymphocytes % Not Reportable Monocytes % Not Reportable Eosinophils % Not Reportable Basophils % Not Reportable Absolute Neutrophils Not Reportable Absolute Lymphocytes Not Reportable Absolute Monocytes Not Reportable Absolute Eosinophils Not Reportable Absolute Basophils Not Reportable Carbonic Acid 1.04 L HCO3/H2CO3 Ratio 21:1 ABG pH 7.43 ABG pCO2 34.7 L ABG pO2 91.5 ABG HCO3 22.7 ABG O2 Saturation 97.3 ABG Base Excess -0.8 FiO2 40% Sodium 141.9 Potassium 4.1 Chloride 116 H Carbon Dioxide 21 L Anion Gap 5 BUN 5 L Creatinine 0.76 Est GFR ( Amer) > 60 Est GFR (Non-Af Amer) > 60 Glucose 109 Calcium 9.1 Phosphorus 3.4 12/21/18 12/21/18 12/21/18 10:35 14:55 20:50 Troponin I < 0.012 < 0.012 0.015 12/22/18 22:25 Troponin I < 0.012 Impressions: Abdomen Ultrasound 12/21/18 00:00 IMPRESSION: FATTY INFILTRATION OF THE LIVER. NO OTHER SIGNIFICANT FINDING IN THE VISUALIZED ABDOMEN. Chest CT 12/27/18 11:04 IMPRESSION: Multicentric pneumonia. KUB X-Ray 12/27/18 14:44 IMPRESSION: Nasogastric tube tip and side port in the stomach Chest X-Ray 12/29/18 06:00 IMPRESSION: No significant change. Assessment and Plan - Diagnosis (1) Acute respiratory failure with hypoxia Is this a current diagnosis for this admission?: Yes Plan: Secondary to pneumonia and alcohol withdrawal contributing. Currently intubated on minimal vent settings. 12/28: He is doing well on minimal vent settings. He still gets very agitated on attempts to wean down on sedation. 12/29: He does well on weaning trials but still gets agitated. Anticipating he will be needing mechanical vent support in the next 2 days prior to reattempting extubation to ensure he is over the alcohol withdrawal phase. Will continue on daily weaning trials. (2) Alcohol withdrawal Qualifiers: Complication of substance-induced condition: uncomplicated Qualified Code(s): F10.230 - Alcohol dependence with withdrawal, uncomplicated Is this a current diagnosis for this admission?: Yes Plan: He went into severe alcohol withdrawal and developed severe agitation not controlled with Valium and Ativan and was subsequently intubated on 12/23/18. He was extubated yesterday 12/26/18. He was reintubated last night. Patient is a heavy alcohol drinker and may not be over the withdrawal phase yet. Continue Ativan and propofol drips for now. 12/28: He is doing well on minimal vent settings. He still gets very agitated on attempts to wean down on sedation. 12/29: He does well on weaning trials but still gets agitated. Anticipating he will be needing mechanical vent support in the next 2-3 days prior to reattempting extubation to ensure he is over the alcohol withdrawal phase. Will continue on daily weaning trials. (3) Aspiration pneumonia Is this a current diagnosis for this admission?: Yes Plan: Recent chest x-ray shows new bilateral infiltrates. He will be treated for a likely aspiration pneumonia. He has been started on Zosyn. Will continue the same antibiotic for now. Will also send for a sputum culture. 12/28: Chest CT shows multifocal pneumonia. Continue Zosyn for now. - Time Time Spent with patient: 25-34 minutes
[2018-12-29] MEDS: POTASSIUM CHLORIDE 20 MEQ PACKET NG SCH (21:21)
[2018-12-30] MEDS: PROPOFOL 1,000 MG/100 ML INFUS..BTL IV PRN ×3 (00:14→06:25)
[2018-12-30] MEDS: HYDRALAZINE HCL INJ/PF 20 MG/1 ML SDV IV PRN ×4 (02:40→21:31)
[2018-12-30] MEDS: PIPERACILLIN SODIUM/TAZOBACTAM 3.375 GM in NORMAL SALINE 100 ML IV SCH ×4 (02:40→20:09)
[2018-12-30 04:33] LABS: ARTERIAL BLOOD H2CO3 0.95 mmol/L (1.05-1.35); ARTERIAL BLOOD HCO3 21.8 mmol/L (20-24); ARTERIAL BLOOD O2 SATURATION 96.4 % (94-98); ARTERIAL BLOOD PCO2 31.4 mmHg (35-45); ARTERIAL BLOOD PH 7.46 (7.35-7.45); ARTERIAL BLOOD PO2 78.9 mmHg (80-100); ARTERIAL BLOOD TOTAL CO2 22.8 mmol/L (23-27)
[2018-12-30 04:34] LABS: ABSOLUTE EOSINOPHILS # (AUTO) 0.3 10^3/uL (0.0-0.6); ABSOLUTE LYMPHOCYTES (AUTO) 1.6 10^3/uL (0.5-4.7); ABSOLUTE MONOCYTES (AUTO) 0.9 10^3/uL (0.1-1.4); ABSOLUTE NEUT (AUTO) 3.8 10^3/uL (1.7-8.2); BASOPHILS % (AUTO) 0.4 % (0-2); EOSINOPHILS % (AUTO) 4.5 % (0-6); HEMATOCRIT 43.5 % (37.9-51.0); HEMOGLOBIN 14.8 g/dL (13.5-17.0); LYMPHOCYTES % (AUTO) 24.2 % (13-45); MEAN CORPUSCULAR HEMOGLOBIN 35.4 pg (27.0-33.4); MEAN CORPUSCULAR VOLUME 104 fl (80-97); MONOCYTES % (AUTO) 13.8 % (3-13); PLATELET COUNT 254 10^3/uL (150-450); RED BLOOD COUNT 4.18 10^6/uL (4.35-5.55); RED CELL DISTRIBUTION WIDTH 13.9 % (11.5-14.0); SEGMENTED NEUTROPHILS % (AUTO) 57.1 % (42-78); TOTAL CELLS COUNTED % (AUTO) 100 %; WHITE BLOOD COUNT 6.6 10^3/uL (4.0-10.5)
[2018-12-30 04:38] LABS: ARTERIAL BLOOD FIO2 40%
[2018-12-30 04:48] LABS: ALANINE AMINOTRANSFERASE 101 U/L (21-72); ALBUMIN 3.4 g/dL (3.5-5.0); ALKALINE PHOSPHATASE 114 U/L (38-126); ANION GAP 8 (5-19); ASPARTATE AMINO TRANSFERASE 61 U/L (17-59); BILIRUBIN,DIRECT 0.5 mg/dL (0.0-0.4); BILIRUBIN,TOTAL 0.6 mg/dL (0.2-1.3); BLOOD UREA NITROGEN 7 mg/dL (7-20); CALCIUM 9.6 mg/dL (8.4-10.2); CARBON DIOXIDE 18 mmol/L (22-30); CHLORIDE 116 mmol/L (98-107); GLUCOSE 101 mg/dL (75-110); SODIUM 141.9 mmol/L (137-145); TOTAL PROTEIN 6.3 g/dL (6.3-8.2)
[2018-12-30] MEDS: LORAZEPAM 24 MG/240 ML BAG IV PRN ×2 (05:20→11:00)
[2018-12-30] MEDS: FAMOTIDINE 20 MG TABLET NG SCH ×2 (05:21→17:13)
[2018-12-30] MEDS: METOCLOPRAMIDE HCL INJ/PF 10 MG/2 ML SDV IV SCH ×2 (05:21→17:12)
--- NOTE | 2018-12-30 06:34 | RADIOLOGY REPORT (SQ) ---
CLINICAL HISTORY: pna COMPARISON: December 29, 2018. TECHNIQUE: XR CHEST 1 VIEW 12/30/2018 6:00 AM CDT FINDINGS: The heart is mildly enlarged. There is right basilar airspace disease. There is no pleural effusion. There is no pneumothorax. There are no acute osseous findings. Endotracheal and nasogastric tubes are unchanged. IMPRESSION: No change.
[2018-12-30] MEDS: ENOXAPARIN SODIUM INJ 40 MG/0.4 ML DISP.SYRIN SUBCUT SCH (09:09)
[2018-12-30] MEDS: NICOTINE 21 MG/24 HR PATCH.TD24 TD SCH (09:09)
[2018-12-30] MEDS: THIAMINE HCL 100 MG TABLET NG SCH (09:10)
[2018-12-30] MEDS: POTASSIUM CHLORIDE 20 MEQ PACKET NG SCH ×2 (09:10→21:05)
[2018-12-30] MEDS: AZITHROMYCIN 250 MG TABLET PO SCH (09:10)
[2018-12-30] MEDS: MIDAZOLAM 2 MG/2 ML INJ IV PRN ×2 (12:49→20:05)
[2018-12-30] MEDS ORDERED: MIDAZOLAM 2 MG/2 ML INJ ONE (13:05)
[2018-12-30] MEDS: DEXMEDETOMIDINE IN NS 400 MCG/100 ML RTUPB IV PRN (13:07)
[2018-12-30] MEDS ORDERED: DEXMEDETOMIDINE IN NS 400 MCG/100 ML RTUPB IV PRN (13:44)
--- NOTE | 2018-12-30 14:13 | PDOC PROGRESS REPORT ---
Subjective Progress Note for:: 12/30/18 Subjective:: This is a 43 year old male with a past medical history of hypertension, alcohol abuse and obesity, who presented to the ED sent from urgent care secondary to elevated blood pressure in the 220/100s. He was initially admitted for hypertensive urgency. He went into severe alcohol withdrawal and developed severe agitation not controlled with Valium and Ativan and was subsequently intubated on 12/23/18. 12/27: He was extubated yesterday 12/26/18. Last night, patient became agitated, short of breath and hypoxic in the 70s and was reintubated. Chest x-ray shows new bilateral infiltrates. This morning, he is currently well sedated and saturating well on minimal vent settings. RN reports thick creamy secretions from the ET. 12/28: He is doing well on minimal vent settings. He still gets very agitated on attempts to wean down on sedation. 12/29: He does well on weaning trials but still gets agitated. Anticipating he will be needing mechanical vent support in the next 2 days prior to reattempting extubation to ensure he is over the alcohol withdrawal phase. Will continue on daily weaning trials. 12/30: No acute event overnight. He has been less agitated during weaning. He was evaluated by pulmonology and was just extubated and transitioned to BIPAP. Reason For Visit: UNCONTROLLED HTN,ALCOHOL WITHDRAWAL Physical Exam Vital Signs: Temp Pulse Resp BP Pulse Ox 99.5 F 98 18 137/89 H 94 12/30/18 12:00 12/30/18 12:00 12/30/18 12:00 12/30/18 12:00 12/30/18 12:00 Intake & Output 12/29/18 12/30/18 12/31/18 06:59 06:59 06:59 Intake Total 3900 2766 436 Output Total 3145 3160 1050 Balance 019 -676 -312 Weight 253 lb 12.033 oz 251 lb 12.286 oz General appearance: PRESENT: no acute distress, well-developed, well-nourished Head exam: PRESENT: atraumatic, normocephalic Eye exam: PRESENT: conjunctiva pink, EOMI, PERRLA. ABSENT: scleral icterus Ear exam: PRESENT: normal external ear exam Mouth exam: PRESENT: moist, tongue midline Neck exam: ABSENT: carotid bruit, JVD, lymphadenopathy, thyromegaly Respiratory exam: PRESENT: rhonchi. ABSENT: rales, wheezes Cardiovascular exam: PRESENT: RRR. ABSENT: diastolic murmur, rubs, systolic murmur Pulses: PRESENT: normal dorsalis pedis pul GI/Abdominal exam: PRESENT: normal bowel sounds, soft. ABSENT: distended, guarding, mass, organolmegaly, rebound, tenderness Rectal exam: PRESENT: deferred Neurological exam: PRESENT: CN II-XII grossly intact. ABSENT: motor sensory deficit Results Laboratory Results: 12/30/18 04:10 12/30/18 04:10 12/30/18 12/30/18 12/30/18 04:10 04:10 04:20 WBC 6.6 RBC 4.18 L Hgb 14.8 Hct 43.5 MCV 104 H MCH 35.4 H MCHC 34.0 RDW 13.9 Plt Count 254 Seg Neutrophils % 57.1 Lymphocytes % 24.2 Monocytes % 13.8 H Eosinophils % 4.5 Basophils % 0.4 Absolute Neutrophils 3.8 Absolute Lymphocytes 1.6 Absolute Monocytes 0.9 Absolute Eosinophils 0.3 Absolute Basophils 0.0 Carbonic Acid 0.95 L HCO3/H2CO3 Ratio 22:1 ABG pH 7.46 H ABG pCO2 31.4 L ABG pO2 78.9 L ABG HCO3 21.8 ABG O2 Saturation 96.4 ABG Base Excess -1.0 FiO2 40% Sodium 141.9 Potassium 4.0 Chloride 116 H Carbon Dioxide 18 L Anion Gap 8 BUN 7 Creatinine 0.74 Est GFR ( Amer) > 60 Est GFR (Non-Af Amer) > 60 Glucose 101 Calcium 9.6 Magnesium 1.9 Total Bilirubin 0.6 AST 61 H ALT 101 H Alkaline Phosphatase 114 Total Protein 6.3 Albumin 3.4 L 12/27/18 12:20 Tracheal Aspirate Gram Stain - Final 12/27/18 12:20 Tracheal Aspirate Sputum Culture - Final NO GROWTH 2 DAYS 12/21/18 12/21/18 12/21/18 10:35 14:55 20:50 Troponin I < 0.012 < 0.012 0.015 12/22/18 22:25 Troponin I < 0.012 Impressions: Abdomen Ultrasound 12/21/18 00:00 IMPRESSION: FATTY INFILTRATION OF THE LIVER. NO OTHER SIGNIFICANT FINDING IN THE VISUALIZED ABDOMEN. Chest CT 12/27/18 11:04 IMPRESSION: Multicentric pneumonia. KUB X-Ray 12/27/18 14:44 IMPRESSION: Nasogastric tube tip and side port in the stomach Chest X-Ray 12/30/18 06:00 IMPRESSION: No change. Assessment and Plan - Diagnosis (1) Acute respiratory failure with hypoxia Is this a current diagnosis for this admission?: Yes Plan: Secondary to pneumonia and alcohol withdrawal contributing. Currently intubated on minimal vent settings. 12/28: He is doing well on minimal vent settings. He still gets very agitated on attempts to wean down on sedation. 12/29: He does well on weaning trials but still gets agitated. Anticipating he will be needing mechanical vent support in the next 2 days prior to reattempting extubation to ensure he is over the alcohol withdrawal phase. Will continue on daily weaning trials. 12/30: He has been less agitated during weaning. He was evaluated by pulmonology and was just extubated and transitioned to BIPAP. (2) Alcohol withdrawal Qualifiers: Complication of substance-induced condition: uncomplicated Qualified Code(s): F10.230 - Alcohol dependence with withdrawal, uncomplicated Is this a current diagnosis for this admission?: Yes Plan: He went into severe alcohol withdrawal and developed severe agitation not controlled with Valium and Ativan and was subsequently intubated on 12/23/18. He was extubated yesterday 12/26/18. He was reintubated last night. Patient is a heavy alcohol drinker and may not be over the withdrawal phase yet. Continue Ativan and propofol drips for now. 12/28: He is doing well on minimal vent settings. He still gets very agitated on attempts to wean down on sedation. 12/29: He does well on weaning trials but still gets agitated. Anticipating he will be needing mechanical vent support in the next 2-3 days prior to reattempting extubation to ensure he is over the alcohol withdrawal phase. Will continue on daily weaning trials. 12/30: He has been less agitated during weaning. He was evaluated by pulmonology and was just extubated and transitioned to BIPAP. (3) Aspiration pneumonia Is this a current diagnosis for this admission?: Yes Plan: Recent chest x-ray shows new bilateral infiltrates. He will be treated for a likely aspiration pneumonia. He has been started on Zosyn. Will continue the same antibiotic for now. Will also send for a sputum culture. 12/28: Chest CT shows multifocal pneumonia. Continue Zosyn for now.
[2018-12-30] MEDS: NORMAL SALINE 1000 ML 1,000 ML IV PRN (17:16)
[2018-12-30] MEDS ORDERED: HALOPERIDOL LACTATE INJ 5 MG/1 ML VIAL IV PRN (17:46)
[2018-12-30] MEDS ORDERED: DIAZEPAM INJ 10 MG/2 ML DISP.SYRIN IV PRN (22:47)
[2018-12-31] MEDS: DEXMEDETOMIDINE IN NS 400 MCG/100 ML RTUPB IV PRN (01:16)
[2018-12-31] MEDS: PIPERACILLIN SODIUM/TAZOBACTAM 3.375 GM in NORMAL SALINE 100 ML IV SCH ×4 (03:48→21:42)
[2018-12-31 04:15] LABS: ARTERIAL BLOOD BASE EXCESS 0.2 mmol/L; ARTERIAL BLOOD H2CO3 1.44 mmol/L (1.05-1.35); ARTERIAL BLOOD HCO3 26.3 mmol/L (20-24); ARTERIAL BLOOD O2 SATURATION 93.3 % (94-98); ARTERIAL BLOOD PCO2 47.8 mmHg (35-45); ARTERIAL BLOOD PH 7.36 (7.35-7.45); ARTERIAL BLOOD PO2 70.1 mmHg (80-100); ARTERIAL BLOOD TOTAL CO2 27.7 mmol/L (23-27)
[2018-12-31 04:20] LABS: ARTERIAL BLOOD FIO2 40%
[2018-12-31 04:42] LABS: ABSOLUTE BASOPHILS # (AUTO) 0.1 10^3/uL (0.0-0.2); ABSOLUTE EOSINOPHILS # (AUTO) 0.2 10^3/uL (0.0-0.6); ABSOLUTE LYMPHOCYTES (AUTO) 1.4 10^3/uL (0.5-4.7); ABSOLUTE MONOCYTES (AUTO) 0.8 10^3/uL (0.1-1.4); ABSOLUTE NEUT (AUTO) 4.9 10^3/uL (1.7-8.2); BASOPHILS % (AUTO) 1.2 % (0-2); EOSINOPHILS % (AUTO) 2.9 % (0-6); HEMATOCRIT 44.7 % (37.9-51.0); HEMOGLOBIN 15.1 g/dL (13.5-17.0); LYMPHOCYTES % (AUTO) 19.2 % (13-45); MEAN CORPUSCULAR HGB CONC 33.9 g/dL (32.0-36.0); MEAN CORPUSCULAR VOLUME 106 fl (80-97); PLATELET COUNT 267 10^3/uL (150-450); RED BLOOD COUNT 4.21 10^6/uL (4.35-5.55); RED CELL DISTRIBUTION WIDTH 13.7 % (11.5-14.0); SEGMENTED NEUTROPHILS % (AUTO) 65.7 % (42-78); TOTAL CELLS COUNTED % (AUTO) 100 %; WHITE BLOOD COUNT 7.5 10^3/uL (4.0-10.5)
[2018-12-31 05:00] LABS: ANION GAP 10 (5-19); BLOOD UREA NITROGEN 10 mg/dL (7-20); CALCIUM 9.5 mg/dL (8.4-10.2); CARBON DIOXIDE 23 mmol/L (22-30); CHLORIDE 110 mmol/L (98-107); GLUCOSE 96 mg/dL (75-110); PHOSPHORUS 4.6 mg/dL (2.5-4.5); POTASSIUM 4.3 mmol/L (3.6-5.0); SODIUM 143.2 mmol/L (137-145)
[2018-12-31] MEDS: FAMOTIDINE 20 MG TABLET NG SCH ×2 (05:44→19:36)
--- NOTE | 2018-12-31 07:30 | RADIOLOGY REPORT (SQ) ---
EXAM DESCRIPTION: XR CHEST 1 VIEW COMPLETED DATE/TME: 12/31/2018 06:00 CLINICAL HISTORY: 43 years Male, pna/resp failure COMPARISON: One day prior. NUMBER OF VIEWS/TECHNIQUE: 1/AP FINDINGS: Small linear and streaky opacity at the right lung base. Normal cardiac silhouette size. No pneumothorax. Stable bony thorax. IMPRESSION: No significant change.
[2018-12-31] MEDS: AZITHROMYCIN 250 MG TABLET PO SCH (11:01)
[2018-12-31] MEDS: THIAMINE HCL 100 MG TABLET NG SCH (11:01)
[2018-12-31] MEDS: NICOTINE 21 MG/24 HR PATCH.TD24 TD SCH (11:02)
[2018-12-31] MEDS: SCOPOLAMINE HYDROBROMIDE 1.5 MG PATCH.TD72 TD SCH (11:02)
[2018-12-31] MEDS: ENOXAPARIN SODIUM INJ 40 MG/0.4 ML DISP.SYRIN SUBCUT SCH (11:03)
--- NOTE | 2018-12-31 14:51 | PDOC PROGRESS REPORT ---
Subjective Progress Note for:: 12/31/18 Subjective:: This is a 43 year old male with a past medical history of hypertension, alcohol abuse and obesity, who presented to the ED sent from urgent care secondary to elevated blood pressure in the 220/100s. He was initially admitted for hypertensive urgency. He went into severe alcohol withdrawal and developed severe agitation not controlled with Valium and Ativan and was subsequently intubated on 12/23/18. 12/27: He was extubated yesterday 12/26/18. Last night, patient became agitated, short of breath and hypoxic in the 70s and was reintubated. Chest x-ray shows new bilateral infiltrates. This morning, he is currently well sedated and saturating well on minimal vent settings. RN reports thick creamy secretions from the ET. 12/28: He is doing well on minimal vent settings. He still gets very agitated on attempts to wean down on sedation. 12/29: He does well on weaning trials but still gets agitated. Anticipating he will be needing mechanical vent support in the next 2 days prior to reattempting extubation to ensure he is over the alcohol withdrawal phase. Will continue on daily weaning trials. 12/30: He has been less agitated during weaning. He was evaluated by pulmonology and was just extubated and transitioned to BIPAP. 12/31: Patient had a few episodes of agitation overnight requiring Haldol and midazolam. His PCO2 went up and he was placed on BIPAP overnight. This morning, he is more awake and coherent. He is able to tell me his name and, knows he is i [facility] and is able to recognize this provider. Transitioned to nasal cannula and he is doing well so far. Reason For Visit: UNCONTROLLED HTN,ALCOHOL WITHDRAWAL Physical Exam Vital Signs: Temp Pulse Resp BP Pulse Ox 100.0 F 90 22 H 130/75 H 96 12/31/18 12:00 12/31/18 12:00 12/31/18 12:00 12/31/18 12:00 12/31/18 12:00 Intake & Output 12/30/18 12/31/18 01/01/19 06:59 06:59 06:59 Intake Total 2866 1839 340 Output Total 0340 1395 345 Balance -294 -1636 -5 Weight 251 lb 12.286 oz 242 lb 4.608 oz General appearance: PRESENT: no acute distress, well-developed, well-nourished Head exam: PRESENT: atraumatic, normocephalic Eye exam: PRESENT: conjunctiva pink, EOMI, PERRLA. ABSENT: scleral icterus Ear exam: PRESENT: normal external ear exam Mouth exam: PRESENT: moist, tongue midline Neck exam: ABSENT: carotid bruit, JVD, lymphadenopathy, thyromegaly Respiratory exam: PRESENT: rhonchi. ABSENT: rales, wheezes Cardiovascular exam: PRESENT: RRR. ABSENT: diastolic murmur, rubs, systolic murmur Pulses: PRESENT: normal dorsalis pedis pul GI/Abdominal exam: PRESENT: normal bowel sounds, soft. ABSENT: distended, guarding, mass, organolmegaly, rebound, tenderness Rectal exam: PRESENT: deferred Neurological exam: PRESENT: alert, awake, oriented to person, oriented to place, CN II-XII grossly intact. ABSENT: motor sensory deficit Results Laboratory Results: 12/31/18 03:32 12/31/18 03:32 12/30/18 12/31/18 12/31/18 21:30 03:32 03:32 WBC 7.5 RBC 4.21 L Hgb 15.1 Hct 44.7 MCV 106 H MCH 36.0 H MCHC 33.9 RDW 13.7 Plt Count 267 Seg Neutrophils % 65.7 Lymphocytes % 19.2 Monocytes % 11.0 Eosinophils % 2.9 Basophils % 1.2 Absolute Neutrophils 4.9 Absolute Lymphocytes 1.4 Absolute Monocytes 0.8 Absolute Eosinophils 0.2 Absolute Basophils 0.1 Carbonic Acid HCO3/H2CO3 Ratio ABG pH ABG pCO2 ABG pO2 ABG HCO3 ABG O2 Saturation ABG Base Excess FiO2 Sodium 143.2 Potassium 4.3 Chloride 110 H Carbon Dioxide 23 Anion Gap 10 BUN 10 Creatinine 0.69 Est GFR ( Amer) > 60 Est GFR (Non-Af Amer) > 60 Glucose 96 Calcium 9.5 Phosphorus 4.6 H Magnesium 1.8 Stool Occult Blood NEGATIVE 12/31/18 04:00 WBC RBC Hgb Hct MCV MCH MCHC RDW Plt Count Seg Neutrophils % Lymphocytes % Monocytes % Eosinophils % Basophils % Absolute Neutrophils Absolute Lymphocytes Absolute Monocytes Absolute Eosinophils Absolute Basophils Carbonic Acid 1.44 H HCO3/H2CO3 Ratio 18:1 ABG pH 7.36 ABG pCO2 47.8 H ABG pO2 70.1 L ABG HCO3 26.3 H ABG O2 Saturation 93.3 L ABG Base Excess 0.2 FiO2 40% Sodium Potassium Chloride Carbon Dioxide Anion Gap BUN Creatinine Est GFR ( Amer) Est GFR (Non-Af Amer) Glucose Calcium Phosphorus Magnesium Stool Occult Blood 12/27/18 12:20 Tracheal Aspirate Gram Stain - Final 12/27/18 12:20 Tracheal Aspirate Sputum Culture - Final NO GROWTH 2 DAYS 12/21/18 12/21/18 12/21/18 10:35 14:55 20:50 Troponin I < 0.012 < 0.012 0.015 12/22/18 22:25 Troponin I < 0.012 Impressions: Abdomen Ultrasound 12/21/18 00:00 IMPRESSION: FATTY INFILTRATION OF THE LIVER. NO OTHER SIGNIFICANT FINDING IN THE VISUALIZED ABDOMEN. Chest CT 12/27/18 11:04 IMPRESSION: Multicentric pneumonia. KUB X-Ray 12/27/18 14:44 IMPRESSION: Nasogastric tube tip and side port in the stomach Chest X-Ray 12/31/18 06:00 IMPRESSION: No significant change. Assessment and Plan - Diagnosis (1) Acute respiratory failure with hypoxia Is this a current diagnosis for this admission?: Yes Plan: Secondary to pneumonia and alcohol withdrawal contributing. Currently intubated on minimal vent settings. 12/28: He is doing well on minimal vent settings. He still gets very agitated on attempts to wean down on sedation. 12/29: He does well on weaning trials but still gets agitated. Anticipating he will be needing mechanical vent support in the next 2 days prior to reattempting extubation to ensure he is over the alcohol withdrawal phase. Will continue on daily weaning trials. 12/30: He has been less agitated during weaning. He was evaluated by pulmonology and was just extubated and transitioned to BIPAP. (2) Alcohol withdrawal Qualifiers: Complication of substance-induced condition: uncomplicated Qualified Cod e(s): F10.230 - Alcohol dependence with withdrawal, uncomplicated Is this a current diagnosis for this admission?: Yes Plan: He went into severe alcohol withdrawal and developed severe agitation not controlled with Valium and Ativan and was subsequently intubated on 12/23/18. He was extubated yesterday 12/26/18. He was reintubated last night. Patient is a heavy alcohol drinker and may not be over the withdrawal phase yet. Continue Ativan and propofol drips for now. 12/28: He is doing well on minimal vent settings. He still gets very agitated on attempts to wean down on sedation. 12/29: He does well on weaning trials but still gets agitated. Anticipating he will be needing mechanical vent support in the next 2-3 days prior to reattempting extubation to ensure he is over the alcohol withdrawal phase. Will continue on daily weaning trials. 12/30: He has been less agitated during weaning. He was evaluated by pulmonology and was just extubated and transitioned to BIPAP. 12/31: Resolved. (3) Aspiration pneumonia Is this a current diagnosis for this admission?: Yes Plan: Recent chest x-ray shows new bilateral infiltrates. He will be treated for a likely aspiration pneumonia. He has been started on Zosyn. Will continue the same antibiotic for now. Will also send for a sputum culture. 12/28: Chest CT shows multifocal pneumonia. Continue Zosyn for now. - Time Time Spent with patient: 15-24 minutes
[2018-12-31] MEDS ORDERED: PROPOFOL 1,000 MG/100 ML INFUS..BTL IV PRN (16:41)
[2019-01-01] MEDS ORDERED: MAGNESIUM HYDROXIDE SUSP 30 ML UDCUP PO PRN (00:37)
[2019-01-01] MEDS: PIPERACILLIN SODIUM/TAZOBACTAM 3.375 GM in NORMAL SALINE 100 ML IV SCH ×3 (02:08→15:18)
[2019-01-01] MEDS: HYDRALAZINE HCL INJ/PF 20 MG/1 ML SDV IV PRN (03:23)
[2019-01-01] MEDS: FAMOTIDINE 20 MG TABLET NG SCH (05:45)
[2019-01-01] MEDS: LOSARTAN POTASSIUM 25 MG TABLET PO SCH (11:21)
[2019-01-01] MEDS: AZITHROMYCIN 250 MG TABLET PO SCH (11:21)
[2019-01-01] MEDS: HYDROCHLOROTHIAZIDE 25 MG TABLET PO SCH (11:21)
[2019-01-01] MEDS: ENOXAPARIN SODIUM INJ 40 MG/0.4 ML DISP.SYRIN SUBCUT SCH (11:22)
[2019-01-01] MEDS: NICOTINE 21 MG/24 HR PATCH.TD24 TD SCH (11:23)
--- NOTE | 2019-01-01 15:03 | PDOC PROGRESS REPORT ---
Subjective Progress Note for:: 01/01/19 Subjective:: This is a 43 year old male with a past medical history of hypertension, alcohol abuse and obesity, who presented to the ED sent from urgent care secondary to elevated blood pressure in the 220/100s. He was initially admitted for hypertensive urgency. He went into severe alcohol withdrawal and developed severe agitation not controlled with Valium and Ativan and was subsequently intubated on 12/23/18. 12/27: He was extubated yesterday 12/26/18. Last night, patient became agitated, short of breath and hypoxic in the 70s and was reintubated. Chest x-ray shows new bilateral infiltrates. This morning, he is currently well sedated and saturating well on minimal vent settings. RN reports thick creamy secretions from the ET. 12/28: He is doing well on minimal vent settings. He still gets very agitated on attempts to wean down on sedation. 12/29: He does well on weaning trials but still gets agitated. Anticipating he will be needing mechanical vent support in the next 2 days prior to reattempting extubation to ensure he is over the alcohol withdrawal phase. Will continue on daily weaning trials. 12/30: He has been less agitated during weaning. He was evaluated by pulmonology and was just extubated and transitioned to BIPAP. 12/31: Patient had a few episodes of agitation overnight requiring Haldol and midazolam. His PCO2 went up and he was placed on BIPAP overnight. This morning, he is more awake and coherent. He is able to tell me his name and, knows he is i [facility] and is able to recognize this provider. Transitioned to nasal cannula and he is doing well so far. 01/01: No acute event overnight. No agitation or combative behavior. He is at his baseline now. He is doing well on room air. Awaiting PT eval. He will bed downgraded to the floor. Reason For Visit: UNCONTROLLED HTN,ALCOHOL WITHDRAWAL Physical Exam Vital Signs: Temp Pulse Resp BP Pulse Ox 97.9 F 100 16 149/99 H 94 01/01/19 12:00 01/01/19 12:00 01/01/19 12:00 01/01/19 14:05 01/01/19 12:11 Intake & Output 12/31/18 01/01/19 01/02/19 06:59 06:59 06:59 Intake Total 1839 990 400 Output Total 3775 2475 1200 Balance -1636 -1485 -800 Weight 242 lb 4.608 oz 248 lb 10.903 oz General appearance: PRESENT: no acute distress, well-developed, well-nourished Head exam: PRESENT: atraumatic, normocephalic Eye exam: PRESENT: conjunctiva pink, EOMI, PERRLA. ABSENT: scleral icterus Ear exam: PRESENT: normal external ear exam Mouth exam: PRESENT: moist, tongue midline Neck exam: ABSENT: carotid bruit, JVD, lymphadenopathy, thyromegaly Respiratory exam: PRESENT: clear to auscultation john. ABSENT: rales, rhonchi, wheezes Cardiovascular exam: PRESENT: RRR. ABSENT: diastolic murmur, rubs, systolic murmur Pulses: PRESENT: normal dorsalis pedis pul GI/Abdominal exam: PRESENT: normal bowel sounds, soft. ABSENT: distended, guarding, mass, organolmegaly, rebound, tenderness Rectal exam: PRESENT: deferred Extremities exam: PRESENT: full ROM. ABSENT: calf tenderness, clubbing, pedal edema Neurological exam: PRESENT: alert, awake, oriented to person, oriented to place, oriented to time, oriented to situation, CN II-XII grossly intact. ABSENT: motor sensory deficit Results Laboratory Results: 12/31/18 03:32 12/31/18 03:32 12/21/18 12/21/18 12/21/18 10:35 14:55 20:50 Troponin I < 0.012 < 0.012 0.015 12/22/18 22:25 Troponin I < 0.012 Impressions: Abdomen Ultrasound 12/21/18 00:00 IMPRESSION: FATTY INFILTRATION OF THE LIVER. NO OTHER SIGNIFICANT FINDING IN THE VISUALIZED ABDOMEN. Chest CT 12/27/18 11:04 IMPRESSION: Multicentric pneumonia. KUB X-Ray 12/27/18 14:44 IMPRESSION: Nasogastric tube tip and side port in the stomach Chest X-Ray 12/31/18 06:00 IMPRESSION: No significant change. Assessment and Plan - Diagnosis (1) Acute respiratory failure with hypoxia Is this a current diagnosis for this admission?: Yes Plan: Secondary to pneumonia and alcohol withdrawal contributing. Currently intubated on minimal vent settings. 12/28: He is doing well on minimal vent settings. He still gets very agitated on attempts to wean down on sedation. 12/29: He does well on weaning trials but still gets agitated. Anticipating he will be needing mechanical vent support in the next 2 days prior to reattempting extubation to ensure he is over the alcohol withdrawal phase. Will continue on daily weaning trials. 12/30: He has been less agitated during weaning. He was evaluated by pulmonology and was just extubated and transitioned to BIPAP. 01/01: Weaned off O2 and now stable on room air. (2) Alcohol withdrawal Qualifiers: Complication of substance-induced condition: uncomplicated Qualified Code(s): F10.230 - Alcohol dependence with withdrawal, uncomplicated Is this a current diagnosis for this admission?: Yes Plan: He went into severe alcohol withdrawal and developed severe agitation not contro lled with Valium and Ativan and was subsequently intubated on 12/23/18. He was extubated yesterday 12/26/18. He was reintubated last night. Patient is a heavy alcohol drinker and may not be over the withdrawal phase yet. Continue Ativan and propofol drips for now. 12/28: He is doing well on minimal vent settings. He still gets very agitated on attempts to wean down on sedation. 12/29: He does well on weaning trials but still gets agitated. Anticipating he will be needing mechanical vent support in the next 2-3 days prior to reattempting extubation to ensure he is over the alcohol withdrawal phase. Will continue on daily weaning trials. 12/30: He has been less agitated during weaning. He was evaluated by pulmonology and was just extubated and transitioned to BIPAP. 12/31: Resolved. (3) Aspiration pneumonia Is this a current diagnosis for this admission?: Yes Plan: Recent chest x-ray shows new bilateral infiltrates. He will be treated for a likely aspiration pneumonia. He has been started on Zosyn. Will continue the diego e antibiotic for now. Will also send for a sputum culture. 12/28: Chest CT shows multifocal pneumonia. Continue Zosyn for now. 01/01: Discontinue Zosyn. Switch to PO Levaquin for 3 more days. - Time Time Spent with patient: 15-24 minutes
[2019-01-01] MEDS ORDERED: NICOTINE 21 MG/24 HR PATCH.TD24 ONE (15:23)
[2019-01-01] MEDS: FAMOTIDINE 20 MG TABLET PO SCH (18:02)
[2019-01-02] MEDS: HYDRALAZINE HCL INJ/PF 20 MG/1 ML SDV IV PRN (00:56)
[2019-01-02] MEDS: FAMOTIDINE 20 MG TABLET PO SCH (05:13)
[2019-01-02] MEDS: HYDROCHLOROTHIAZIDE 25 MG TABLET PO SCH (09:00)
[2019-01-02] MEDS: ENOXAPARIN SODIUM INJ 40 MG/0.4 ML DISP.SYRIN SUBCUT SCH (09:00)
[2019-01-02] MEDS: LOSARTAN POTASSIUM 25 MG TABLET PO SCH (09:00)
[2019-01-02] MEDS: NICOTINE 21 MG/24 HR PATCH.TD24 TD SCH (09:00)
[2019-01-02] MEDS ORDERED: LEVOFLOXACIN 500 MG TABLET PO SCH (10:00)
[2019-01-02 10:28] VITALS: BP 139/87
--- NOTE | 2019-01-02 10:50 | PDOC DISCHARGE SUMMARY ---
General - Admit/Disc Date/PCP Admission Date/Primary Care Provider: 12/21/18 12:45 Discharge Date: 01/02/19 - Discharge Diagnosis (1) Acute respiratory failure Is this a current diagnosis for this admission?: Yes Summary: Secondary to pneumonia and alcohol withdrawal contributing. Currently intubated on minimal vent settings. 12/28: He is doing well on minimal vent settings. He still gets very agitated on attempts to wean down on sedation. 12/29: He does well on weaning trials but still gets agitated. Anticipating he will be needing mechanical vent support in the next 2 days prior to reattempting extubation to ensure he is over the alcohol withdrawal phase. Will continue on daily weaning trials. 12/30: He has been less agitated during weaning. He was evaluated by pulmonology and was just extubated and transitioned to BIPAP. 01/01: Weaned off O2 and now stable on room air. 01/02/2019-patient went into acute respiratory failure most likely secondary to pneumonia and alcohol withdrawal may be a contributing factor. He was promptly intubated on 12/23/2018-later on he was extubated on 12/26/2018 that night he became more agitated get into respiratory distress became hypoxic and pulse oxes went into 70s he was reintubated and transferred to ICU. Chest x-ray shows new b ilateral infiltrates. he was treated with IV antibiotic therapy. He was extubated again on 12/30/2018-pulmonary was on board during the hospital stay. This morning patient is walking around in the hallway without any respiratory distress. Pulse ox is 96% on room air. Patient is going home on levofloxacin 500 mg p.o. daily for 5 days. (2) Alcohol abuse Is this a current diagnosis for this admission?: Yes Summary: 01/02/2019-patient has history of heavy alcohol use as per the family he started drinking heavily when he was a teenager continue to drink on daily basis. He required a lot of sedatives to calm him down in the hospital and he was intubated because he was agitated and probably aspirated on the chest x-ray shows infiltrates treated with antibiotics and successfully extubated now. Counseling was provided today strongly advised him to join the AA group and also advised him to cut down the alcohol intake. (3) Alcohol withdrawal Is this a current diagnosis for this admission?: Yes Summary: He went into severe alcohol withdrawal and developed severe agitation not controlled with Valium and Ativan and was subsequently intubated on 12/23/18. He was extubated yesterday 12/26/18. He was reintubated last night. Patient is a heavy alcohol drinker and may not be over the withdrawal phase yet. Continue Ativan and propofol drips for now. 12/28: He is doing well on minimal vent settings. He still gets very agitated on attempts to wean down on sedation. 12/29: He does well on weaning trials but still gets agitated. Anticipating he will be needing mechanical vent support in the next 2-3 days prior to reattempting extubation to ensure he is over the alcohol withdrawal phase. Will continue on daily weaning trials. 12/30: He has been less agitated during weaning. He was evaluated by pulmonology and was just extubated and transitioned to BIPAP. 12/31: Resolved. 01/02/[id number]-znr[age]-old male with history of heavy alcohol use admitted for alco hol withdrawal symptoms. He was intubated during the hospital stay and he required a significant amount of sedatives to keep him sedated. And he developed pneumonia during the hospital stay which was treated with levofloxacin. Pneumonia most likely secondary to gram-positive organisms. He is a healthcare acquired pneumonia. (4) Hypertensive emergency Is this a current diagnosis for this admission?: Yes Summary: 01/02/2019-patient came in to the ER with a very high blood pressures most likely secondary to alcohol withdrawal symptoms. The blood pressure is managed by as needed IV Gilbert. Blood pressures are stable this morning 135/78. I gave the prescriptions for losartan 25 mg p.o. daily and hydrochlorothiazide 25 mg daily to continue at home. (5) Hyponatremia Is this a current diagnosis for this admission?: Yes Summary: 01/02/2019-patient came in with hyponatremia most likely secondary to heavy alcohol use and poor oral intake hyponatremia is resolved today's sodium is 143. (6) Tobacco abuse Is this a current diagnosis for this admission?: Yes (7) Transaminitis Is this a current diagnosis for this admission?: Yes Summary: 01/02/2019-patient came in with elevated liver enzymes ultrasound of the right upper quadrant was done found to have a fatty liver. May be heavy alcohol use also the contributing factor for elevated LFTs. (8) Hypotension Is this a current diagnosis for this admission?: Yes (9) Aspiration pneumonia Is this a current diagnosis for this admission?: Yes Summary: Recent chest x-ray shows new bilateral infiltrates. He will be treated for a likely aspiration pneumonia. He has been started on Zosyn. Will continue the same antibiotic for now. Will also send for a sputum culture. 12/28: Chest CT shows multifocal pneumonia. Continue Zosyn for now. 01/01: Discontinue Zosyn. Switch to PO Levaquin for 3 more days. 01/02/2019-patient developed aspiration pneumonia during the hospital stay he completed vancomycin and Zosyn presently on p.o. levofloxacin he is going home on p.o. levofloxacin 500 mg p.o. daily for 5 days. Blood cultures and sputum cultures are negative. - Additional Information Resuscitation Status: Full Code Discharge Diet: Cardiac Discharge Activity: Activity As Tolerated, Balance Activity w/Rest, Slowly Increase Activity Prescriptions: Famotidine [Pepcid 20 mg Tablet] 20 mg PO Q12A #60 tablet Hydrochlorothiazide [Hydrodiuril 25 mg Tablet] 25 mg PO DAILY #30 tablet Levofloxacin [Levaquin 500 mg Tablet] 500 mg PO DAILY #5 tablet Losartan Potassium [Cozaar 25 mg Tablet] 25 mg PO DAILY #30 tablet Home Medications: Famotidine [Pepcid 20 mg Tablet] 20 mg PO Q12A #60 tablet 01/02/19 Hydrochlorothiazide [Hydrodiuril 25 mg Tablet] 25 mg PO DAILY #30 tablet 01/02/19 Levofloxacin [Levaquin 500 mg Tablet] 500 mg PO DAILY #5 tablet 01/02/19 Losartan Potassium [Cozaar 25 mg Tablet] 25 mg PO DAILY #30 tablet 01/02/19 History of Present Illness History of Present Illness: IBRAHIMA UGARTE is a 43 year old male 43 year old male with a past medical history of hypertension and obesity, who presented to the ED sent from urgent care secondary to elevated blood pressure. Patient states that he cut his finger over the left hand a few weeks ago and went back to the urgent care to have it looked at. While he was at the urgent care he was found to have a systolic blood pressure greater than 220 and was told to go to the ER immediately. Patient tells me that this has happened to him in the past when he was in the ED for elevated blood pressure but he was never admitted. Patient also tells me that he was started on medication for hypertension but is not compliant with that and has not been taking it. He denies any symptoms of chest pain, shortness of breath, abdominal pain, nausea or vomiting, dizziness, blurry vision or headaches. He does admit to smoking 1 pack of cigarette per day. He also admits to drinking alcohol daily-his choice alcohol is vodka- 2/5th liquor in a week. States that he also drinks beer on the weekends. He denies use of any illicit drugs. He denies any family history of cancer or [facility] before the age of 50. Hospital Course Hospital Course: 01/02/[id number]-ztgi-old male with heavy alcohol use admitted for uncontrolled hypertension agitation and he was placed in the ICU he was intubated on 12/23/2018, extubated on 01/05/2019-he was reintubated again because of the agitation and severe alcohol withdrawal symptoms and chest x-ray showing bilateral infiltrates. He was re-extubated on 12/30/2018 without any further complications. During the hospital stay he required heavy doses of sedatives to calm him down on keep him sedated. During the hospital stay patient developed aspiration pneumonia most likely secondary to agitation due to alcohol withdrawal. Sputum cultures blood cultures came back negative. Physical Exam Vital Signs: Temp Pulse Resp BP Pulse Ox 98.3 F 98 16 139/87 H 96 01/02/19 10:25 01/02/19 10:25 01/02/19 10:25 01/02/19 10:25 01/02/19 10:25 Intake & Output 01/01/19 01/02/19 01/03/19 06:59 06:59 06:59 Intake Total 990 990 Output Total 2475 4300 Balance -1485 -3310 Weight 112.8 kg 113.2 kg General appearance: PRESENT: no acute distress Head exam: PRESENT: atraumatic Eye exam: PRESENT: PERRLA Mouth exam: PRESENT: moist, tongue midline Neck exam: ABSENT: carotid bruit, JVD, lymphadenopathy, thyromegaly Respiratory exam: PRESENT: decreased breath sounds Cardiovascular exam: PRESENT: RRR. ABSENT: diastolic murmur, rubs, systolic murmur GI/Abdominal exam: PRESENT: normal bowel sounds, soft. ABSENT: distended, guarding, mass, organolmegaly, rebound, tenderness Extremities exam: PRESENT: full ROM. ABSENT: calf tenderness, clubbing, pedal e rachael Neurological exam: PRESENT: alert, awake, oriented to person, oriented to place, oriented to time, oriented to situation, CN II-XII grossly intact. ABSENT: motor sensory deficit Psychiatric exam: PRESENT: appropriate affect, normal mood. ABSENT: homicidal ideation, suicidal ideation Results Laboratory Results: 12/31/18 03:32 12/31/18 03:32 12/21/18 12/21/18 12/21/18 10:35 14:55 20:50 Troponin I < 0.012 < 0.012 0.015 12/22/18 22:25 Troponin I < 0.012 Impressions: Abdomen Ultrasound 12/21/18 00:00 IMPRESSION: FATTY INFILTRATION OF THE LIVER. NO OTHER SIGNIFICANT FINDING IN THE VISUALIZED ABDOMEN. Chest CT 12/27/18 11:04 IMPRESSION: Multicentric pneumonia. KUB X-Ray 12/27/18 14:44 IMPRESSION: Nasogastric tube tip and side port in the stomach Chest X-Ray 12/31/18 06:00 IMPRESSION: No significant change. Qualifiers - * PATIENT BEING DISCHARGED WITH ANY OF THE FOLLOWING DIAGNOSIS: No VTE patient discharged on overlapping Therapy?: No
== END 2019-01-02 11:40 | disposition home or self-care (01) | DRG 896 ==
LOC: ER 10:07 → EH 12:45 → ICU 15:17 → 4S 12-22 12:17 → ICU 12-23 00:56 → 4S 01-02 01:43
PROVIDERS: ADMIT Family Medicine; ATTEND Internal Medicine
PROC: HZ2ZZZZ Detoxification Services for Substance Abuse Treatment (ICD-10-PCS; principal; 2018-12-22)
PROC: 0BH17EZ Insertion of Endotracheal Airway into Trachea, Via Natural or Artificial Opening (ICD-10-PCS; 2018-12-23)
PROC: 5A1945Z Respiratory Ventilation, 24-96 Consecutive Hours (ICD-10-PCS; 2018-12-23)
PROC: 0BH17EZ Insertion of Endotracheal Airway into Trachea, Via Natural or Artificial Opening (ICD-10-PCS; 2018-12-27)
PROC: 5A1945Z Respiratory Ventilation, 24-96 Consecutive Hours (ICD-10-PCS; 2018-12-27)
DX: F10.239 Alcohol dependence with withdrawal, unspecified (principal); J96.00 Acute respiratory failure, unspecified whether with hypoxia or hypercapnia; J69.0 Pneumonitis due to inhalation of food and vomit; I16.1 Hypertensive emergency; E87.1 Hypo-osmolality and hyponatremia; R74.0 Nonspecific elevation of levels of transaminase and lactic acid dehydrogenase [LDH]; I10 Essential (primary) hypertension; R68.0 Hypothermia, not associated with low environmental temperature; I95.9 Hypotension, unspecified; E66.9 Obesity, unspecified; F17.210 Nicotine dependence, cigarettes, uncomplicated; T46.4X6A Underdosing of angiotensin-converting-enzyme inhibitors, initial encounter; Z91.128 Patient's intentional underdosing of medication regimen for other reason; Y90.2 Blood alcohol level of 40-59 mg/100 ml; Z78.1 Physical restraint status
CPT/HCPCS: 31500; 36415; 71045; 71250; 74018; 76705; 80048; 80053; 80061; 80202; 80307; 81001; 82140; 82272; 82607; 82746; 82803; 82962; 83036; 83605; 83735; 84100; 84443; 84484; 85025; 85610; 87040; 87070; 87205; 87493; 93005; 93010; 93971; 94002; 94003; 94660; 94799; 96365; 96375; 99291; J0330; J0360; J1630; J1650; J2060; J2250; J2405; J2543; J2704; J2765; J3360; J3370; J3411; J3475; J3480; J3490; J7030; J7050; J7060